=== PATIENT | female | born 1935 | race Caucasian/White ===

== ENCOUNTER 2018-11-13 14:46 | Inpatient (IN) | payer MEDICARE, SELFPAY | END 2018-11-17 14:00 | DRG 690 | PROVIDERS: Admitting Provider Internal Medicine; Emergency Provider Emergency Medicine; PCP Family Medicine; Visit Provider Internal Medicine | DX: N39.0 Urinary tract infection, site not specified (principal); N18.4 Chronic kidney disease, stage 4 (severe); E22.2 Syndrome of inappropriate secretion of antidiuretic hormone; W06.XXXA Fall from bed, initial encounter; M19.90 Unspecified osteoarthritis, unspecified site; F32.9 Major depressive disorder, single episode, unspecified; M81.0 Age-related osteoporosis without current pathological fracture; Z85.3 Personal history of malignant neoplasm of breast; F41.9 Anxiety disorder, unspecified; Z96.611 Presence of right artificial shoulder joint; Z98.1 Arthrodesis status; Z96.649 Presence of unspecified artificial hip joint; S42.032A Displaced fracture of lateral end of left clavicle, initial encounter for closed fracture; D63.1 Anemia in chronic kidney disease; K58.9 Irritable bowel syndrome, unspecified; B96.20 Unspecified Escherichia coli [E. coli] as the cause of diseases classified elsewhere; G30.9 Alzheimer's disease, unspecified; F02.80 Dementia in other diseases classified elsewhere, unspecified severity, without behavioral disturbance, psychotic disturbance, mood disturbance, and anxiety; T50.2X5A Adverse effect of carbonic-anhydrase inhibitors, benzothiadiazides and other diuretics, initial encounter | CPT/HCPCS: 36415; 51701; 70450; 71045; 72125; 72170; 73030; 73060; 73502; 80048; 80053; 80069; 81001; 81050; 82384; 82436; 82533; 82550; 83690; 83874; 83883; 83930; 83935; 84105; 84133; 84165; 84295; 84300; 84443; 85025; 85027; 85610; 87040; 87077; 87086; 87088; 87186; 93005; 96360; 96361; 96374; 97110; 97116; 97161; 97166; 97530; 97535; 99291; A4565; A9270; G0378; J0696; J2597; J7030; J7060 ==

== ENCOUNTER 2020-05-22 10:14 | Emergency (ER) | payer MEDICARE, SELFPAY ==
[2020-05-22] VITALS (9 sets, daily range): BP systolic 112–168; BP diastolic 59–78; PULSE 55–66; RESP 9–24; TEMP 36.3; O2SAT 95–98
--- NOTE | ~2020-05-22 | XR_ITS ---
EXAMINATION: XR chest 2V 05/22/2020 10:51 INDICATION: Weakness. Dyspnea. Syncope. PROCEDURE: AP and lateral views of the chest COMPARISON: There FINDINGS: The lungs are clear. The lungs are hyperinflated which is consistent with, but not diagnost ic of chronic obstructive pulmonary disease. The cardiomediastinal silhouette is within normal limits . There are no pleural effusions. There is no pneumothorax suspected. There is a right shoulder ar throplasty. IMPRESSION: 1: NO ACUTE CARDIOPULMONARY DISEASE. Reviewed, dictated and finalized at location B.
--- NOTE | ~2020-05-22 | CT_ITS ---
EXAMINATION: CT brain wo con DATE: 05/22/2020 11:14 INDICATION: Syncope TECHNIQUE: Computed tomography (CT) of the head was performed without intravenous contrast. The dose- length product was 605.33 mGy-cm. The mA was adjusted according to patient size. Iterative reconstruc tion technique was employed. COMPARISON: CT dated 11/13/2018 FINDINGS: There is generalized atrophy. There are scattered severe periventricular and subcortical wh ite matter changes, most likely related to small vessel ischemic disease (microangiopathy). There is intracranial atherosclerosis. No acute intracranial hemorrhage, infarction, mass or mass effect. No v entriculomegaly or midline shift. Paranasal sinuses and mastoids are pneumatized. No depressed skull fractures. IMPRESSION: 1. No acute intracranial abnormality. Reviewed, dictated and finalized at location B.
--- NOTE | 2020-05-22 10:19 | ECG_ITS ---
Measurements Intervals [place] Rate: 60 P: 63 NC: 146 QRS: -80 QRSD: 128 T: 53 QT: 442 QTc: 443 Interpretive Statements SINUS RHYTHM LEFT AXIS DEVIATION RSR' IN V1 OR V2, CONSIDER RIGHT VENTRICULAR HYPERTROPHY OR RIGHT VCD BASELINE ARTIFACT- V4, V6 BORDERLINE ECG Electronically Signed On 05-22-2020 11:15:27 CDT by Sascha Newman D.O.
[2020-05-22 10:39] LABS: Basophils Percent Auto 0.5 % (0.2-1.2); Eosinophils Absolute Auto 0.1 K/mm3 (0-0.3); Eosinophils Percent Auto 1.5 % (0-4.4); Hematocrit 33.3 % (37.0-47.0); Hemoglobin 10.6 g/dL (12.0-15.0); Immature Granulocyte Absolute 0.02 K/mm3 (0.00-0.031); Immature Granulocyte Percent A 0.3 % (0-0.5); Lymphocytes Absolute Auto 1.03 K/mm3 (0.9-3.2); Lymphocytes Percent Auto 16.9 % (18.3-44.2); Mean Corpuscular HGB Conc 31.8 g/dl (32-36); Mean Corpuscular Hemoglobin 30.7 pg (26-34); Mean Corpuscular Volume 96.5 fl (80-100); Mean Platelet Volume 10.1 fl (7.4-10.4); Monocytes Absolute Auto 0.6 K/mm3 (0.1-0.6); Monocytes Percent Auto 9.2 % (2.6-8.5); Neutrophils Absolute Auto 4.4 K/mm3 (1.3-6.7); Neutrophils Percent Auto 71.6 % (45.5-73.1); Platelet Count Result 192 k/mm3 (150-375); Red Blood Count 3.45 M/mm3 (4.2-5.4); White Blood Count 6.1 K/mm3 (4.5-10.0)
[2020-05-22 10:52] LABS: Alanine Aminotransferase 15 U/L (4-35); Albumin Level 3.8 g/dL (3.5-5.1); Alkaline Phosphatase 85 U/L (38-126); Anion Gap 10 mmol/L (8-16); Aspartate Amino Transferase 24 U/L (14-36); Bilirubin,Total 0.5 mg/dL (0.2-1.3); Blood Urea Nitrogen 31 mg/dL (7-17); Calcium 9.3 mg/dL (8.4-10.2); Carbon Dioxide 24 mmol/L (22-30); Chloride 103 mmol/L (98-107); Estimated CRCL calculation 22 ml/min; Estimated Glomerular Filt Rate 33; Glucose 122 mg/dL (65-105); Potassium 4.7 mmol/L (3.4-5.0); Sodium 137 mmol/L (137-145)
[2020-05-22 10:55] LABS: Add Urine Microscopic? YES; Appearance Urine Clear (Clear); Bilirubin Urine Negative (Negative); Blood Urine 1+ (Negative); Color Urine Yellow (Yellow); Glucose Urine UA Negative (Negative); Hyaline Casts Urine 15-19 /lpf; Ketones Urine Negative (Negative); Leukocyte Esterase Ur Negative LEU/UL (Negative); Mucus Urine Rare /lpf; Nitrate Urine Negative (Negative); Protein Urine Negative (Negative); RBC Urine 0-2 /hpf (0-2); Specific Grav Ur 1.013 (1.001-1.035); Squamous Epithelial Cell Urine Few /hpf (Few); Urobilinogen Urine Negative mg/dL (<2.0); WBC Urine 0-3 /hpf
[2020-05-22] MEDS: SODIUM CHLORIDE 0.9% IV 1,000 ML 999 ML IV CONT (11:24)
--- NOTE | 2020-05-22 13:27 | PC.NURSE ---
Pt ambulated without assistance
--- NOTE | 2020-05-22 13:55 | ED.GENADULT ---
HPI - General Adult General Chief complaint: Syncope Stated complaint: weakness, syncopal Time Seen by Provider: 05/22/20 10:22 History of Present Illness HPI narrative: Patient is an 85-year-old female who presents ER status post syncope. Patient was on the toilet trying to use bathroom when she lost consciousness. Patient reports this is not happened to her previously. Denies any recent nausea/vomiting. She has not had any decreased oral intake. Patient had soiled herself upon arrival here. Related Data Home Medications Medication Instructions Recorded Confirmed amlodipine 5 mg PO 05/22/20 05/22/20 labetalol 100 mg PO 05/22/20 Allergies Allergy/AdvReac Type Severity Reaction Status Date / Time codeine Allergy Unknown Unknown Verified 05/22/20 12:06 Review of Systems Review of Systems: All systems reviewed & are unremarkable except as noted in HPI and below Constitutional: Constitutional: Denies chills, Denies fever(s) and Denies weakness ENT: Denies nasal congestion and Denies sore throat Cardiovascular: Cardiovascular: Denies chest pain and Denies radiating jaw, neck or arm pain Gastrointestinal: Gastrointestinal: Denies abdominal pain, Reports diarrhea, Denies nausea and Denies vomiting Neurologic: Reports syncope, Denies headache(s), Denies focal weakness and Denies numbness PMFSH Past Medical History Medical History (Updated 05/22/20 @ 14:00 by Jake Monreal MD) Alzheimer's dementia Essential hypertension Fracture of left clavicle HX: breast cancer Hypertensive kidney disease, stage IV Secondary hyperparathyroidism (of renal origin) (05/03/19) Surgical History Surgical History (Updated 05/22/20 @ 13:58 by Jake Monreal MD) H/O bilateral mastectomy History of left hip replacement Family History Family History (Updated 11/24/18 @ 16:53 by DOCTOR UNKNOWN) Father Family history of suicide Family history of mental disorder Depression Mother Family history of malignant neoplasm of breast in first degree relative Sibling Family history of obesity Family history of mental disorder Depression Hypertension Family history of cardiovascular disease Family history of Alzheimer's disease Other Family history of malignant neoplasm Social History Social History Smoking status: Never smoker Alcohol intake: never Exam Narrative: Exam Narrative: GENERAL: Well-appearing, well-nourished, and in no acute distress. HEAD: Normocephalic, atraumatic. ENT: Mucous membranes moist. CHEST: Clear to auscultation. No respiratory distress. HEART: Regular rate and rhythm. Normal peripheral pulses. ABDOMEN: Soft, nontender, nondistended. EXTREMITIES: Normal range of motion. No edema. SKIN: Warm, dry, no rash. NEURO: Awake and alert, clear speech, neurologic baseline per family. Course Course Emergency Course: Patient was orthostatic which is resolved with IV fluid. Ambulatory without difficulty. Family feels comfortable with discharge. Vital Signs Vital signs: Vital Signs Temperature 97.3 F L 05/22/20 10:12 Pulse Rate 58 L 05/22/20 10:12 Respiratory Rate 13 05/22/20 10:12 Blood Pressure 150/69 H 05/22/20 10:12 Pulse Oximetry 98 05/22/20 10:12 Temperature 97.3 F L 05/22/20 10:12 Pulse Rate 66 05/22/20 13:16 Respiratory Rate 21 H 05/22/20 13:11 Blood Pressure 160/68 H 05/22/20 13:16 Pulse Oximetry 95 05/22/20 13:11 Medical Decision Making Vital Signs Vital Signs: Vital Signs Temperature 97.3 F L 05/22/20 10:12 Pulse Rate 58 L 05/22/20 10:12 Respiratory Rate 13 05/22/20 10:12 Blood Pressure 150/69 H 05/22/20 10:12 Pulse Oximetry 98 05/22/20 10:12 Temperature 97.3 F L 05/22/20 10:12 Pulse Rate 66 05/22/20 13:16 Respiratory Rate 21 H 05/22/20 13:11 Blood Pressure 160/68 H 05/22/20 13:16 Pulse Oximetry 95 05/22/20 13:11 Lab Data Result diagrams: 05/22/20 10:32 05/22/20 10:32
== END 2020-05-22 14:34 | disposition home or self-care (01) ==
PROVIDERS: Emergency Provider Emergency Medicine; PCP Family Medicine
DX: I95.1 Orthostatic hypotension (principal); G30.9 Alzheimer's disease, unspecified; F02.80 Dementia in other diseases classified elsewhere, unspecified severity, without behavioral disturbance, psychotic disturbance, mood disturbance, and anxiety; Z85.3 Personal history of malignant neoplasm of breast; I13.10 Hypertensive heart and chronic kidney disease without heart failure, with stage 1 through stage 4 chronic kidney disease, or unspecified chronic kidney disease; N18.4 Chronic kidney disease, stage 4 (severe); N25.81 Secondary hyperparathyroidism of renal origin; Z90.13 Acquired absence of bilateral breasts and nipples; Z96.642 Presence of left artificial hip joint
CPT/HCPCS: 36415; 70450; 71046; 80053; 81001; 85025; 93005; 96360; 99284; J7030

== ENCOUNTER 2020-07-02 14:38 | Inpatient (IN) | payer MEDICARE, SELFPAY ==
[2020-07-02] VITALS (24 sets, daily range): BP systolic 126–180; BP diastolic 60–94; PULSE 62–101; RESP 9–43; TEMP 36.1–36.4; O2SAT 77–100; BMI 23.0
--- NOTE | 2020-07-02 15:21 | ED.GENADULT ---
HPI - General Adult General Chief complaint: Recheck/Abnormal Lab/Rx Stated complaint: Dizzy, Blood Pressure Low Time Seen by Provider: 07/02/20 15:06 Source: RN notes reviewed History of Present Illness HPI narrative: Patient presents emergency department from Dr. Jimenez's office for orthostatic hypotension. Patient had gone to the office for routine follow-up today was found to be orthostatically hypotension. Blood pressures were noted to be dropping down to the 70s systolically when she stood up. Patient does states she has been having some mild intermittent dizziness she denies any current symptoms sent in bed she has any fevers or chills chest pain shortness of breath abdominal pain nausea vomiting or any other symptoms Related Data Allergies Allergy/AdvReac Type Severity Reaction Status Date / Time No Known Allergies Allergy Verified 07/02/20 15:06 Review of Systems Review of Systems: Narrative: Gen.: Denies fevers or chills Eyes: Denies eye pain or visual change ENT: Denies congestion Respiratory: Denies shortness of breath or cough CV: Denies chest pain or palpitations GI: Denies abdominal pain nausea, emesis or diarrhea denies burning, urgency, frequency or hematuria Musculoskeletal: Denies back pain or muscle pain Neuro: Denies numbness, tingling, weakness or focal weakness reports intermittent dizziness with standing Skin: Denies rash Except as documented, all other systems reviewed and negative FOR[facility]LY [facility] Past Medical History Medical History Essential hypertension Fracture of left clavicle HX: breast cancer Hypertensive kidney disease, stage IV Postmenopausal 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 (of renal origin) (05/03/19) Surgical History Surgical History H/O bilateral mastectomy History of left hip replacement Family History Family History Father Family history of suicide Family history of mental disorder Depression Mother Family history of malignant neoplasm of breast in first degree relative Sibling Family history of obesity Family history of mental disorder Depression Hypertension Family history of cardiovascular disease Family history of Alzheimer's disease Other Family history of malignant neoplasm Social History Social History Smoking status: Never smoker Alcohol intake: never Gender identity (if verbalized by the patient): Female Exam Narrative: Exam Narrative: APPEARANCE: No acute distress, nontoxic, resting in bed EYES: EOMI HEENT: Normocephalic, atraumatic, OMM RESPIRATORY: No respiratory distress Clear to auscultation bilaterally with no rhonchi wheezing or rales. CARDIOVASCULAR: Regular rate and rhythm without murmurs rubs or gallops. ABDOMINAL: Soft, nontender, nondistended, no rebound or guarding MUSCULOSKELETAl: Moves all extremities. No clubbing, cyanosis or edema. NEURO: Awake and alert. Following commands, speech normal, no focal deficits SKIN:: Warm, dry. No rashes lesions or abrasions PSYCHIATRIC: Normal affect/mood, Course Course Emergency Course: Discussed with Dr. Jimenez presentation work-up agrees with consult at this time peer request patient be started on 0.9 normal saline at 75 mL an hour with a repeat sodium drawn in 4 hours Discussed with BRITTNY Stephens for Dr Cox presentation work-up agrees with admission at this time Discussed with patient and family results of workup and diagnosis. Discussed need for admission. Patient and family understand and agree to current treatment plan Vital Signs Vital signs: Vital Signs Pulse Rate 66 07/02/20 14:58 Respiratory Rate 12 07/02/20 14:58 Blood Pressure 171/73 H 07/02/20 14:58 Pulse Oximetry 99 07/02/20 14:58 Pulse Rat
[2020-07-02 15:30] LABS: Basophils Percent Auto 0.3 % (0.2-1.2); Eosinophils Percent Auto 0.4 % (0-4.4); Hematocrit 32.2 % (37.0-47.0); Immature Granulocyte Absolute 0.03 K/mm3 (0.00-0.031); Immature Granulocyte Percent A 0.3 % (0-0.5); Lymphocytes Absolute Auto 1.06 K/mm3 (0.9-3.2); Lymphocytes Percent Auto 10.4 % (18.3-44.2); Mean Corpuscular HGB Conc 34.2 g/dl (32-36); Mean Corpuscular Hemoglobin 30.7 pg (26-34); Mean Corpuscular Volume 89.9 fl (80-100); Mean Platelet Volume 9.9 fl (7.4-10.4); Monocytes Absolute Auto 0.7 K/mm3 (0.1-0.6); Monocytes Percent Auto 6.5 % (2.6-8.5); Neutrophils Absolute Auto 8.3 K/mm3 (1.3-6.7); Neutrophils Percent Auto 82.1 % (45.5-73.1); Platelet Count Result 203 k/mm3 (150-375); Red Blood Count 3.58 M/mm3 (4.2-5.4); Red Cell Distribution Width 11.9 % (11.5-14.5); White Blood Count 10.2 K/mm3 (4.5-10.0)
[2020-07-02] MEDS: SODIUM CHLORIDE 0.9% IV 1,000 ML 999 ML IV CONT (15:36)
[2020-07-02 15:41] LABS: Potassium 4.6 mmol/L (3.4-5.0)
[2020-07-02 15:49] LABS: Alanine Aminotransferase 16 U/L (4-35); Albumin Level 4.1 g/dL (3.5-5.1); Alkaline Phosphatase 99 U/L (38-126); Anion Gap 12 mmol/L (8-16); Aspartate Amino Transferase 29 U/L (14-36); Bilirubin,Total 0.4 mg/dL (0.2-1.3); Blood Urea Nitrogen 30 mg/dL (7-17); Carbon Dioxide 22 mmol/L (22-30); Chloride 86 mmol/L (98-107); Estimated CRCL calculation 23 ml/min; Estimated Glomerular Filt Rate 36; Glucose 130 mg/dL (65-105); Sodium 120 mmol/L (137-145)
[2020-07-02 15:53] LABS: Add Urine Microscopic? YES; Appearance Urine Clear (Clear); Bilirubin Urine Negative (Negative); Blood Urine 2+ (Negative); Color Urine Straw (Yellow); Glucose Urine UA Negative (Negative); Ketones Urine Negative (Negative); Leukocyte Esterase Ur Negative LEU/UL (Negative); Nitrate Urine Negative (Negative); Protein Urine Negative (Negative); RBC Urine 0-2 /hpf (0-2); Specific Grav Ur 1.009 (1.001-1.035); Squamous Epithelial Cell Urine Occasional /hpf (Few); Urobilinogen Urine Negative mg/dL (<2.0); WBC Urine 0-3 /hpf
--- NOTE | 2020-07-02 16:23 | ECG_ITS ---
Measurements Intervals [place] Rate: 64 P: 66 [place]: 156 QRS: 72 QRSD: 132 T: 42 QT: 423 QTc: 439 Interpretive Statements SINUS RHYTHM RIGHT BUNDLE BRANCH BLOCK BASELINE ARTIFACT- V3-V4 ABNORMAL ECG Electronically Signed On 07-02-2020 19:47:44 [employer]IST by Sascha Newman D.O.
[2020-07-02] MEDS: SODIUM CHLORIDE 0.9% IV 1,000 ML 75 ML IV CONT (17:49)
--- NOTE | 2020-07-02 18:05 | ADMGEN ---
This patient, Jennifer Negrete, was admitted to Medical Room 349-01. Patient/family oriented to hospital policies and general routines including ID bracelet, bed and alarms, visiting hours, pain management, procedures, bathroom and other care routines, personal items, smoking policy, room service/diet, and visiting hours. Information on how to activate the Rapid Response Team has been discussed. Patient/Family are encouraged to report perceived risks to care and to ask questions if they do not understand what they are told or what they should do.
[2020-07-02 20:39] LABS: Anion Gap 7 mmol/L (8-16); Blood Urea Nitrogen 25 mg/dL (7-17); Calcium 8.8 mg/dL (8.4-10.2); Carbon Dioxide 23 mmol/L (22-30); Chloride 95 mmol/L (98-107); Estimated CRCL calculation 24 ml/min; Estimated Glomerular Filt Rate 39; Glucose 139 mg/dL (65-105); Potassium 4.2 mmol/L (3.4-5.0); Sodium 125 mmol/L (137-145)
--- NOTE | 2020-07-02 23:17 | PM.IMHP ---
H&P: HPI History of Present Illness Date/Time: 07/02/20 23:17 Chief complaint: Hypotension at [facility] office Narrative: Source of information: ER records and past medical records. The patient is a poor historian due to her dementia. Patient cannot recall why she was brought to the hospital. She thought that she may have been brought to the hospital because she may have COVID which was not the case. Jennifer Negrete is a 85 year old female with a past medical history of depression, anxiety, dementia, hypertension and kidney disease stage 4 who presented to the ER from Dr. Jimenez's office to orthostatic hypotension. The patient and went to the office for routine follow-up and was found have her blood pressures dropped as low as the 70s when she stood up. The patient has been having some intermittent dizziness. She denies any headaches or visual changes. She actually could not recall why she had come to the ER and thought that she may be in the hospital to see if she had COVID. She denies any shortness of breath or chest pain. She reports that she has been eating adequately. She denies any nausea or vomiting. She does think she is more confused than usual. She denies any cough, congestion, fevers or recent ill contacts. She has only a oriented to person and date of . She knows that she is in the hospital but does not known the name of the hospital. She does not know the month or year. Review of Systems Review of Systems: Narrative: 12 systems were reviewed with pertinent positives and negatives per HPI. Except as documented in the HPI, all other systems were reviewed and are negative but limited due to the patient's dementia. [facility] Past Medical History Medical History Essential hypertension Fracture of left clavicle HX: breast cancer Hypertensive kidney disease, stage IV Postmenopausal 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 (of renal origin) (05/03/19) Surgical History Surgical History H/O bilateral mastectomy History of left hip replacement Family History Family History Father Family history of suicide Family history of mental disorder Depression Mother Family history of malignant neoplasm of breast in first degree relative Sibling Family history of obesity Family history of mental disorder Depression Hypertension Family history of cardiovascular disease Family history of Alzheimer's disease Other Family history of malignant neoplasm Social History Social History Smoking status: Never smoker Alcohol intake: never Substance use: never Substance use type: does not use Gender identity (if verbalized by the patient): Female Spiritual care concerns: No Meds Home Medications and Allergies Home Medications Medication Instructions Recorded Confirmed Type citalopram 20 mg tablet 20 mg PO DAILY #90 tablet 01/29/20 07/02/20 Rx lisinopril 10 mg tablet 10 mg PO DAILY #90 tablet 01/29/20 07/02/20 Rx mecobalamin (vitamin B12) 1,000 1,000 mcg PO DAILY #90 tablet 06/06/20 07/02/20 Rx mcg chewable tablet lorazepam 0.5 mg tablet 0.5 mg PO DAILY PRN #90 tablet 06/12/20 07/02/20 Rx buspirone 5 mg DAILY 07/02/20 07/02/20 History memantine 7 mg DAILY 07/02/20 07/02/20 History Allergies Allergy/AdvReac Type Severity Reaction Status Date / Time No Known Allergies Allergy Verified 07/02/20 18:52 Vital Signs Vital Signs - 24 hr 07/02/20 14:53 07/02/20 14:54 07/02/20 14:58 Temperature Pulse Rate 69 66 Respiratory Rate 15 12 Blood Pressure 171/73 H 171/73 H Pulse Oximetry 98 100 99 07/02/20 15:00 07/02/20 15:01 07/02/20 15:11 Temperature Pulse Rate 64 65 67 Respiratory Rate 14 12 Blood Pressure 1
[2020-07-03 04:22] VITALS: BP 152/64; PULSE 76; RESP 16; TEMP 36.4; O2SAT 97
[2020-07-03 05:54] LABS: Basophils Percent Auto 0.4 % (0.2-1.2); Eosinophils Percent Auto 0.6 % (0-4.4); Hematocrit 30.9 % (37.0-47.0); Hemoglobin 10.5 g/dL (12.0-15.0); Immature Granulocyte Absolute 0.03 K/mm3 (0.00-0.031); Immature Granulocyte Percent A 0.4 % (0-0.5); Lymphocytes Absolute Auto 1.18 K/mm3 (0.9-3.2); Lymphocytes Percent Auto 17.6 % (18.3-44.2); Mean Corpuscular Hemoglobin 30.3 pg (26-34); Mean Platelet Volume 9.6 fl (7.4-10.4); Monocytes Absolute Auto 0.6 K/mm3 (0.1-0.6); Monocytes Percent Auto 9.6 % (2.6-8.5); Neutrophils Absolute Auto 4.8 K/mm3 (1.3-6.7); Neutrophils Percent Auto 71.4 % (45.5-73.1); Platelet Count Result 201 k/mm3 (150-375); Red Blood Count 3.47 M/mm3 (4.2-5.4); Red Cell Distribution Width 11.9 % (11.5-14.5); White Blood Count 6.7 K/mm3 (4.5-10.0)
[2020-07-03 06:20] LABS: Anion Gap 8 mmol/L (8-16); Blood Urea Nitrogen 25 mg/dL (7-17); Calcium 9.1 mg/dL (8.4-10.2); Carbon Dioxide 23 mmol/L (22-30); Chloride 100 mmol/L (98-107); Estimated CRCL calculation 26 ml/min; Estimated Glomerular Filt Rate 43; Glucose 102 mg/dL (65-105); Potassium 4.6 mmol/L (3.4-5.0); Sodium 131 mmol/L (137-145)
--- NOTE | 2020-07-03 08:40 | PM.IMPN ---
Progress Note: A&P Assessment and Plan (1) Acute hyponatremia: Code(s): E87.1 - Hypo-osmolality and hyponatremia Status: Acute Assessment and Plan: Serum Na corrected to 131 overnight, however appears to have corrected too fast compared to labs drawn yesterday afternoon. Discussed case with Dr. Jimenez who is following and plans to keep patient overnight to monitor sodium levels. Appreciate recommendations D5W fluids per Dr. Jimenez rec Monitor serum Na Await further rec from Dr. Jimenez (2) Orthostatic hypotension: Code(s): I95.1 - Orthostatic hypotension Status: Acute Assessment and Plan: Appears to have a bit elevated BP this morning. Amlodipine and BB stopped per Dr. Jimenez given low BP prior to arrival. monitor BP overnight Home Lisinopril continues Will consider restarting amlodipine if continued elevated BP (3) CKD (chronic kidney disease) stage 4, GFR 15-29 ml/min: Code(s): N18.4 - Chronic kidney disease, stage 4 (severe) Status: Acute Assessment and Plan: Cr 1.20 this morning. Appears to be at baseline. Dr. Jimenez following Monitor BMP (4) Alzheimer's dementia with behavioral disturbance: Qualifiers: Alzheimer's disease onset: late-onset Qualified Code(s): G30.1 - Alzheimer's disease with late onset; F02.81 - Dementia in other diseases classified elsewhere with behavioral disturbance Code(s): G30.9 - Alzheimer's disease, unspecified; F02.81 - Dementia in other diseases classified elsewhere with behavioral disturbance Status: Acute Assessment and Plan: Appears to be at baseline. Pleasantly confused for me this morning Continue home medications fall precautions Subjective Date/time seen: 12/03/20 08:40 Interval history: Patient is a 85 yo F with history of depression, anxiety, dementia, hypertension and kidney disease stage 4 who is seen in follow up for hyponatremia and orthostatic hypotension. Patient states she feels pretty good today. No complaints. She does have baseline dementia and is A&O to self, month/day of , and that she is in the hospital and answers questions appropriately for the most part, but is occasionally pleasantly confused. She states she thinks she blacked out yesterday. Currently she denies f/c/s, headaches, dizziness, lightheadedness, cp/palpitations, sob/cough, n/v/d/c, abd pain, changes in BMs, dysuria, hematuria, cloudy urine, calf pain/swelling. Review of Systems Review of Systems: All systems reviewed & are unremarkable except as noted in HPI and below (limited due to baseline dementia) Exam Narrative: Exam Narrative: General: Patient resting supine in bed in no acute distress. A&O to self, day/month of , and that she is in the hospital. Pleasantly confused HEENT: Normocephalic, EOMI, oral mucosa moist. Cardiovascular: Rate and rhythm are regular. No notable murmur, rub, or gallop. Respiratory: Lungs clear to auscultation all subramanian. Non-labored breathing. Abdomen: Soft, non-tender, non-distended, bowel sounds present. Extremities: Peripheral pulses intact. No edema. NTTP b/l calves Neuro: No focal neurological deficits. Speech is clear. Objective Data Vital Signs Vital Signs: Last Vital Signs Temp 97.5 F L 07/03/20 04:22 Pulse 76 07/03/20 04:22 Resp 16 07/03/20 04:22 BP 152/64 H 07/03/20 04:22 Pulse Ox 97 07/03/20 04:22 Intake/Output Intake/Output: Intake & Output 06/30/20 07/01/20 07/02/20 07/03/20 23:59 23:59 23:59 23:59 Intake Total 1229 50 Output Total 700 300 Balance 529 -250 Meds/Results Medications: Active Medications Generic Name Dose Route Start Last Admin Trade Name Freq PRN Reason Stop Dose Admin Buspirone HCl 5 mg 07/03/20 09:00 Buspirone Hcl 5 Mg Tablet BY MOUTH
[2020-07-03] MEDS: DEXTROSE 5% 1,000 ML 1,000 ML 180 ML IV CONT (08:41)
--- NOTE | 2020-07-03 08:52 | PM.CNNEP ---
Assessment and Plan Assessment and plan (1) Acute hyponatremia: Code(s): E87.1 - Hypo-osmolality and hyponatremia Status: Acute Assessment and Plan: The patient has low sodium. Most likely etiology is her copious water drinking plus being on citalopram. She has been on the latter medication for years and her sodium has always been okay, but as her daughter and she agree, she does not drink very much water at home. Probably she was essentially fluid restricting herself and so her sodium did not drop because of the Citalopram before. There are other causes of hyponatremia also. Will check a TSH and a cortisol level. She is not on any of the other main medications that do this. Cancer can do this. I encouraged her to keep up-to-date with her cancer screening as indicated by her age. Brain issues can do this. A CT of the brain yesterday and this was okay. Lung issues can do this but a chest x-ray was negative as well. Her sodium corrected too quickly. I have written for some D5W and DDAVP to bring his sodium back down to about 126-128. A repeat sodium will be checked at noon and they will call me the results. (2) Orthostatic hypotension: Code(s): I95.1 - Orthostatic hypotension Status: Acute Assessment and Plan: Was on 3 different antihypertensives before. One of them was labetalol. This can cause orthostasis. Hypo adrenalism can do this as well. Dehydration can do this. She got some fluid last night. Is off the labetalol. We will see with the cortisol shows. We can check SPEP, B12, folate to rule out autonomic insufficiency as well. (3) Chronic renal insufficiency: Code(s): N18.9 - Chronic kidney disease, unspecified Status: Acute Assessment and Plan: She has chronic kidney disease. This has been stable. (4) Essential hypertension: Code(s): I10 - Essential (primary) hypertension Status: Acute Assessment and Plan: She has hypertension. Blood pressure is a little higher. Discussed with BRITTNY Zuniga. Will restart amlodipine. (5) Anemia in chronic kidney disease: Qualifiers: Chronic kidney disease stage: stage 4 (severe) Qualified Code(s): N18.4 - Chronic kidney disease, stage 4 (severe); D63.1 - Anemia in chronic kidney disease Code(s): N18.9 - Chronic kidney disease, unspecified; D63.1 - Anemia in chronic kidney disease Status: Acute Assessment and Plan: Hemoglobin is a bit low. She does not knee EPO. (6) Alzheimer's dementia with behavioral disturbance: Qualifiers: Alzheimer's disease onset: late-onset Qualified Code(s): G30.1 - Alzheimer's disease with late onset; F02.81 - Dementia in other diseases classified elsewhere with behavioral disturbance Code(s): G30.9 - Alzheimer's disease, unspecified; F02.81 - Dementia in other diseases classified elsewhere with behavioral disturbance Status: Acute Assessment and Plan: She is on memantine for this. (7) Secondary hyperparathyroidism (of renal origin): Onset Date: 05/03/19 Code(s): N25.81 - Secondary hyperparathyroidism of renal origin Status: Acute Assessment and Plan: Patient has an elevated PTH due to the renal insufficiency. (8) Vitamin D deficiency, unspecified: Code(s): E55.9 - Vitamin D deficiency, unspecified Status: Acute Assessment and Plan: Will check a level. History of Present Illness Reason for Consult Consult date: 07/03/20 Chief Complaint Chief complaint: Hypotension at [employer] [facility] office History of Present Illness Narrative: Jennifer is a very pleasant 85-year-old lady who has chronic kidney disease, hypertension, depression, anxiety, dementia. The patient came to my office yesterday for a routine visit. She felt dizzy and did not feel well. Her blood pressure was 102 but standing a was down to 70. Dr. Montesinos had gotten some blood work done the day before and this showed a
[2020-07-03] MEDS: DESMOPRESSIN ACETATE 4 MCG/ML AMP 2 MCG IV PUSH (09:49)
[2020-07-03 09:52] VITALS: O2SAT 98
[2020-07-03] MEDS: busPIRone HCL 5 MG TABLET BY MOUTH (09:52)
[2020-07-03] MEDS: lisinopriL 10 MG TABLET PO (09:52)
[2020-07-03] MEDS: CITALOPRAM HYDROBROMIDE 20 MG TABLET PO (09:52)
[2020-07-03] MEDS: CYANOCOBALAMIN 1,000 MCG TABLET 1000 MCG PO (09:52)
[2020-07-03] MEDS: MEMANTINE HCL XR 7 MG CAP BY MOUTH (11:13)
[2020-07-03 11:40] LABS: Vitamin D 25 Hydroxy 44.7 ng/mL
[2020-07-03 11:52] LABS: Thyroid Stimulating Hormone Reflex 0.802 uIU/mL (0.465-4.68)
[2020-07-03 11:59] LABS: Folic Acid 6.2 ng/mL (2.76->20)
[2020-07-03 13:32] LABS: Sodium 128 mmol/L (137-145)
[2020-07-03 15:19] VITALS: BP 153/84; PULSE 95; RESP 16; TEMP 36.7; O2SAT 100
[2020-07-03 22:00] VITALS: BP 210/96; PULSE 103; RESP 16; TEMP 36.7; O2SAT 96
[2020-07-03 22:30] VITALS: BP 185/86
[2020-07-03] MEDS: hydrALAZINE HCL 20 MG/ML VIAL 5 MG IV PUSH (23:55)
[2020-07-04] VITALS (7 sets, daily range): BP systolic 136–162; BP diastolic 70–90; PULSE 91–105; RESP 16–18; TEMP 36.3–36.8; O2SAT 97–98
[2020-07-04 06:11] LABS: Hematocrit 34.4 % (37.0-47.0); Hemoglobin 11.7 g/dL (12.0-15.0); Mean Corpuscular Hemoglobin 30.4 pg (26-34); Mean Corpuscular Volume 89.4 fl (80-100); Platelet Count Result 242 k/mm3 (150-375); Red Blood Count 3.85 M/mm3 (4.2-5.4); Red Cell Distribution Width 12.1 % (11.5-14.5)
[2020-07-04 06:25] LABS: Albumin Level 3.9 g/dL (3.5-5.1); Anion Gap 7 mmol/L (8-16); Blood Urea Nitrogen 19 mg/dL (7-17); Calcium 9.7 mg/dL (8.4-10.2); Carbon Dioxide 23 mmol/L (22-30); Chloride 95 mmol/L (98-107); Estimated CRCL calculation 28 ml/min; Estimated Glomerular Filt Rate 47; Glucose 108 mg/dL (65-105); Magnesium 1.5 mg/dL (1.6-2.3); Phosphorus 3.4 mg/dL (2.5-4.5); Potassium 4.3 mmol/L (3.4-5.0); Sodium 125 mmol/L (137-145)
[2020-07-04] MEDS: busPIRone HCL 5 MG TABLET BY MOUTH (08:46)
[2020-07-04] MEDS: lisinopriL 10 MG TABLET PO (08:46)
[2020-07-04] MEDS: CITALOPRAM HYDROBROMIDE 20 MG TABLET PO (08:47)
[2020-07-04] MEDS: CYANOCOBALAMIN 1,000 MCG TABLET 1000 MCG PO (08:47)
[2020-07-04] MEDS: MEMANTINE HCL XR 7 MG CAP BY MOUTH (08:48)
[2020-07-04] MEDS: MAGNESIUM SULF 1 GM/D5W 100 ML 1 GM/100 ML BAG IVPB (09:00)
--- NOTE | 2020-07-04 10:45 | PM.IMPN ---
Progress Note: A&P Assessment and Plan (1) Acute hyponatremia: Code(s): E87.1 - Hypo-osmolality and hyponatremia Status: Acute Assessment and Plan: Serum Na down to 125 overnight. Discussed case with Dr. Jimenez who is following and plans to place patient on fluid restricted diet of 800 mL/day. Appreciate recommendations 800 mL/day fluid restriction per Dr. Jimenez rec Monitor serum Na Await further rec from Dr. Jimenez (2) Orthostatic hypotension: Code(s): I95.1 - Orthostatic hypotension Status: Acute Assessment and Plan: Appears to have elevated to over 200s/90s overnight and was given hydralazine. Now 150s sys most recently. Amlodipine and BB were stopped per Dr. Jimenez given low BP/orthostatic BP prior to arrival. Will restart home amlodipine and restart labetalol at lower dose of 50 mg Q12 today. Monitor BP overnight Home Lisinopril continues Will consider increaseing labetolol if continued elevated BP (3) CKD (chronic kidney disease) stage 4, GFR 15-29 ml/min: Code(s): N18.4 - Chronic kidney disease, stage 4 (severe) Status: Acute Assessment and Plan: Cr 1.10 this morning. Appears to be at baseline. Dr. Jimenez following Monitor BMP (4) Alzheimer's dementia with behavioral disturbance: Qualifiers: Alzheimer's disease onset: late-onset Qualified Code(s): G30.1 - Alzheimer's disease with late onset; F02.81 - Dementia in other diseases classified elsewhere with behavioral disturbance Code(s): G30.9 - Alzheimer's disease, unspecified; F02.81 - Dementia in other diseases classified elsewhere with behavioral disturbance Status: Acute Assessment and Plan: Appears to be at baseline. Pleasantly confused for me this morning Continue home medications fall precautions Subjective Date/time seen: 07/04/20 10:45 Interval history: Patient is a 85 yo F with history of depression, anxiety, dementia, hypertension and kidney disease stage 4 who is seen in follow up for hyponatremia and orthostatic hypotension. Patient states she feels pretty good today. No complaints. She does have baseline dementia and is A&O to self, , and that she is in a medical building and answers questions appropriately for the most part, but is occasionally pleasantly confused again today. Currently she denies f/c/s, dizziness, lightheadedness, cp/palpitations, sob/cough, n/v, abd pain, dysuria, hematuria, cloudy urine, calf pain/swelling. Review of Systems Review of Systems: All systems reviewed & are unremarkable except as noted in HPI and below (limited due to baseline dementia) Exam Narrative: Exam Narrative: General: Patient resting supine in bed in no acute distress. A&O to self, , and that she is in a medical building . Pleasantly confused HEENT: Normocephalic, EOMI, oral mucosa moist. Cardiovascular: A bit tachycardic and regular rhythm. No notable murmur, rub, or gallop. Respiratory: Lungs clear to auscultation all subramanian. Non-labored breathing. Abdomen: Soft, non-tender, non-distended, bowel sounds present. Extremities: Peripheral pulses intact. No edema. NTTP b/l calves Neuro: No focal neurological deficits. Speech is clear. Objective Data Vital Signs Vital Signs: Last Vital Signs Temp 97.7 F 07/04/20 04:09 Pulse 99 07/04/20 04:09 Resp 16 07/04/20 04:09 BP 150/72 H 07/04/20 04:09 Pulse Ox 97 07/04/20 04:09 Intake/Output Intake/Output: Intake & Output 07/01/20 07/02/20 07/03/20 07/04/20 23:59 23:59 23:59 23:59 Intake Total 1229 1130 860 Output Total 700 500 Balance 529 791 860 Meds/Results Medications: Active Medications Generic Name Dose Route Start Last Admin Trade Name Freq PRN Reason Stop Dose Admin Amlodipine Besylate 5 mg 07/04/20 10:30 Amlo
[2020-07-04] MEDS: amLODIPine BESYLATE 5 MG TABLET PO (11:20)
[2020-07-04] MEDS: LABETALOL HCL 50 MG TABLET PO ×2 (11:20→20:39)
--- NOTE | 2020-07-04 12:57 | PM.PNNEP ---
Progress Note: A&P Assessment and Plan (1) Acute hyponatremia: Code(s): E87.1 - Hypo-osmolality and hyponatremia Status: Acute Assessment and Plan: The patient has low sodium. TSH okay. Cortisol borderline low. Will check Cortrosyn stim test. Most likely etiology is her copious water drinking plus being on citalopram. She needs this medication for her well-being. Will continue it and work around it. She is on fluid restriction now at 800cc per day. Will repeat a sodium level this afternoon (2) Orthostatic hypotension: Code(s): I95.1 - Orthostatic hypotension Status: Acute Assessment and Plan: blood pressure is high. She is on lisinopril and is back on her amlodipine. I agree with low-dose labetalol. (3) Chronic renal insufficiency: Code(s): N18.9 - Chronic kidney disease, unspecified Status: Acute Assessment and Plan: She has chronic kidney disease. This has been stable. (4) Essential hypertension: Code(s): I10 - Essential (primary) hypertension Status: Acute Assessment and Plan: See above (5) Anemia in chronic kidney disease: Qualifiers: Chronic kidney disease stage: stage 4 (severe) Qualified Code(s): N18.4 - Chronic kidney disease, stage 4 (severe); D63.1 - Anemia in chronic kidney disease Code(s): N18.9 - Chronic kidney disease, unspecified; D63.1 - Anemia in chronic kidney disease Status: Acute Assessment and Plan: Hemoglobin is a bit low. She does not need EPO. (6) Alzheimer's dementia with behavioral disturbance: Qualifiers: Alzheimer's disease onset: late-onset Qualified Code(s): G30.1 - Alzheimer's disease with late onset; F02.81 - Dementia in other diseases classified elsewhere with behavioral disturbance Code(s): G30.9 - Alzheimer's disease, unspecified; F02.81 - Dementia in other diseases classified elsewhere with behavioral disturbance Status: Acute Assessment and Plan: She is on memantine for this. (7) Secondary hyperparathyroidism (of renal origin): Onset Date: 05/03/19 Code(s): N25.81 - Secondary hyperparathyroidism of renal origin Status: Acute Assessment and Plan: Patient has an elevated PTH due to the renal insufficiency. (8) Vitamin D deficiency, unspecified: Code(s): E55.9 - Vitamin D deficiency, unspecified Status: Acute Assessment and Plan: this level is okay. Subjective Date/time seen: 07/04/20 12:57 Interval history: Patient is alert. No chest pain or shortness of breath. Review of Systems Cardiovascular: Cardiovascular: Reports no additional cardiovascular complaints Respiratory: Respiratory: Reports no additional respiratory complaints Gastrointestinal: Gastrointestinal: Reports no additional gastrointestinal complaints Genitourinary: Genitourinary: Reports no additional female genitourinary complaints Exam Narrative: Exam Narrative: WDWN in NAD skin no rash head ncat lungs clear cor reg no rub abd BS+ nontender and soft ext no edema. Objective Data Vital Signs Vital Signs: Vital Signs - 24 hr 07/03/20 15:19 07/03/20 22:00 07/03/20 22:30 Temperature 36.7 C 36.7 C Pulse Rate 95 103 H Respiratory Rate 16 16 Blood Pressure 153/84 H 210/96 H 185/86 H Pulse Oximetry 100 96 07/04/20 00:00 07/04/20 04:09 07/04/20 11:20 Temperature 36.5 C Pulse Rate 99 91 Respiratory Rate 16 Blood Pressure 159/84 H 150/72 H Pulse Oximetry 97 07/04/20 12:44 Temperature Pulse Rate Respiratory Rate Blood Pressure 136/70 Pulse Oximetry Intake/Output Intake/Output: Intake & Output 07/01/20 07/02/20 07/03/20 07/04/20 23:59 23:59 23:59 23:59 Intake Total 1229 1130 860 Output Total 700 500 Balance 529 015 860 Meds/Results Medications: Active Medications Generic Name Dose Route Start Last Admin Trade Name Freq PRN Reason S
[2020-07-04 13:24] LABS: Sodium 122 mmol/L (137-145)
[2020-07-04] MEDS: COSYNTROPIN 0.25 MG/ML VIAL IV PUSH (13:36)
[2020-07-05 05:38] LABS: Hematocrit 28.2 % (37.0-47.0); Hemoglobin 9.9 g/dL (12.0-15.0); Mean Corpuscular HGB Conc 35.1 g/dl (32-36); Mean Corpuscular Hemoglobin 30.1 pg (26-34); Mean Corpuscular Volume 85.7 fl (80-100); Mean Platelet Volume 9.9 fl (7.4-10.4); Platelet Count Result 199 k/mm3 (150-375); Red Blood Count 3.29 M/mm3 (4.2-5.4); Red Cell Distribution Width 11.6 % (11.5-14.5)
[2020-07-05 05:55] VITALS: BP 164/68; PULSE 82; RESP 14; TEMP 36.8; O2SAT 96
[2020-07-05 06:07] LABS: Albumin Level 3.4 g/dL (3.5-5.1); Anion Gap 7 mmol/L (8-16); Blood Urea Nitrogen 26 mg/dL (7-17); Calcium 9.3 mg/dL (8.4-10.2); Carbon Dioxide 24 mmol/L (22-30); Chloride 91 mmol/L (98-107); Estimated CRCL calculation 28 ml/min; Estimated Glomerular Filt Rate 47; Glucose 98 mg/dL (65-105); Magnesium 1.7 mg/dL (1.6-2.3); Phosphorus 3.3 mg/dL (2.5-4.5); Potassium 4.2 mmol/L (3.4-5.0); Sodium 122 mmol/L (137-145)
[2020-07-05 08:00] VITALS: PULSE 90; RESP 14; O2SAT 96
[2020-07-05 10:21] VITALS: PULSE 90
[2020-07-05] MEDS: CITALOPRAM HYDROBROMIDE 20 MG TABLET PO (10:21)
[2020-07-05] MEDS: CYANOCOBALAMIN 1,000 MCG TABLET 1000 MCG PO (10:21)
[2020-07-05] MEDS: lisinopriL 10 MG TABLET PO (10:21)
[2020-07-05] MEDS: LABETALOL HCL 50 MG TABLET PO ×2 (10:21→20:48)
[2020-07-05] MEDS: busPIRone HCL 5 MG TABLET BY MOUTH (10:21)
[2020-07-05] MEDS: amLODIPine BESYLATE 5 MG TABLET PO (10:22)
[2020-07-05] MEDS: MEMANTINE HCL XR 7 MG CAP BY MOUTH (10:26)
--- NOTE | 2020-07-05 12:24 | PM.IMPN ---
Progress Note: A&P Assessment and Plan (1) Acute hyponatremia: Code(s): E87.1 - Hypo-osmolality and hyponatremia Status: Acute Assessment and Plan: Serum Na down to 122 today. Discussed case with Dr. Whitney who is following and awaiting sodium level this afternoon. 800 mL/day fluid restriction currently. Appreciate recommendations. 800 mL/day fluid restriction per Nephrology rec Monitor serum Na Await further rec from Dr. Whitney (2) Orthostatic hypotension: Code(s): I95.1 - Orthostatic hypotension Status: Acute Assessment and Plan: BP 160s sys this morning. Prior to arrival, her home Amlodipine and BB were stopped per Dr. Jimenez given low BP/orthostatic BP in his office Will continue home amlodipine and labetalol at lower dose of 50 mg Q12h Monitor BP overnight Home Lisinopril continues Will consider increasing labetolol if continued elevated BP (3) CKD (chronic kidney disease) stage 4, GFR 15-29 ml/min: Code(s): N18.4 - Chronic kidney disease, stage 4 (severe) Status: Acute Assessment and Plan: Cr 1.10 this morning. Appears to be at baseline. Dr. Jimenez following Monitor BMP (4) Alzheimer's dementia with behavioral disturbance: Qualifiers: Alzheimer's disease onset: late-onset Qualified Code(s): G30.1 - Alzheimer's disease with late onset; F02.81 - Dementia in other diseases classified elsewhere with behavioral disturbance Code(s): G30.9 - Alzheimer's disease, unspecified; F02.81 - Dementia in other diseases classified elsewhere with behavioral disturbance Status: Acute Assessment and Plan: Appears to be at baseline. Pleasantly confused for me this morning. No change in her mental status Continue home medications fall precautions Subjective Date/time seen: 07/05/20 12:24 Interval history: Patient is a 85 yo F with history of depression, anxiety, dementia, hypertension and kidney disease stage 4 who is seen in follow up for hyponatremia and orthostatic hypotension. Patient states she feels well again today. No complaints. She does have baseline dementia and is A&O to self, , and that she is in a hospital; answers questions appropriately for the most part, but is occasionally pleasantly confused again today. Currently she denies f/c/s, dizziness, lightheadedness, cp/palpitations, sob/cough, n/v, abd pain, dysuria, hematuria, cloudy urine, calf pain/swelling. Review of Systems Review of Systems: All systems reviewed & are unremarkable except as noted in HPI and below (limited due to baseline dementia) Exam Narrative: Exam Narrative: General: Patient resting supine in bed in no acute distress. A&O to self, , and hospital. Pleasantly confused HEENT: Normocephalic, EOMI, oral mucosa moist. Cardiovascular: Normal rate and regular rhythm. No notable murmur, rub, or gallop. Respiratory: Lungs clear to auscultation all subramanian. Non-labored breathing. Abdomen: Soft, non-tender, non-distended, bowel sounds present. Extremities: Peripheral pulses intact. No edema. NTTP b/l calves Neuro: No focal neurological deficits. Speech is clear. Objective Data Vital Signs Vital Signs: Last Vital Signs Temp 98.2 F 07/05/20 05:55 Pulse 90 07/05/20 10:21 Resp 14 07/05/20 08:00 BP 164/68 H 07/05/20 05:55 Pulse Ox 96 07/05/20 08:00 Intake/Output Intake/Output: Intake & Output 07/02/20 07/03/20 07/04/20 07/05/20 23:59 23:59 23:59 23:59 Intake Total 1229 1130 1340 280 Output Total 700 500 500 300 Balance 529 630 840 -20 Meds/Results Medications: Active Medications Generic Name Dose Route Start Last Admin Trade Name Freq PRN Reason Stop Dose Admin Amlodipine Besylate 5 mg 07/04/20 10:30 07/05/20 10:22 Amlodipine Besylate 5 Mg Tablet PO 5 mg QAM SC
[2020-07-05 12:33] LABS: Sodium 123 mmol/L (137-145)
[2020-07-05 14:00] VITALS: BP 138/64; PULSE 80; RESP 14; TEMP 36.5; O2SAT 99
--- NOTE | 2020-07-05 14:24 | PM.PNNEP ---
Progress Note: A&P Assessment and Plan (1) Acute hyponatremia: Code(s): E87.1 - Hypo-osmolality and hyponatremia Status: Acute Assessment and Plan: suspect due to increased free water intake + SSRI (citalopram) use evaluation to date: - TSH okay - cortisol borderline low but stimulation test okay - free kappa/lambda light chain ratio negative - SPEP without M-spike; UPEP pending - urine sodium more suggestive of volume depletion since she needs SSRI, will work around this issue continue to follow repeat sodium levels if no improvement by later today, will consider 3% saline continue fluid restriction (2) Chronic renal insufficiency: Code(s): N18.9 - Chronic kidney disease, unspecified Status: Chronic Assessment and Plan: stable at this time continue supportive therapy (3) Essential hypertension: Code(s): I10 - Essential (primary) hypertension Status: Chronic Assessment and Plan: has been fluctuating continue current BP medications follow trend of hemodynamics (4) Alzheimer's dementia with behavioral disturbance: Qualifiers: Alzheimer's disease onset: late-onset Qualified Code(s): G30.1 - Alzheimer's disease with late onset; F02.81 - Dementia in other diseases classified elsewhere with behavioral disturbance Code(s): G30.9 - Alzheimer's disease, unspecified; F02.81 - Dementia in other diseases classified elsewhere with behavioral disturbance Status: Chronic Assessment and Plan: appears stable on memantine Will continue to follow. Subjective Date/time seen: 07/05/20 14:24 Appears to be doing reasonably well at the time of my visit; no acute events overnight or earlier this AM; no apparent distress voiced currently; no other complaints noted. Exam Narrative: Exam Narrative: General: WD/WN elderly female in NAD Heart: normal S1 and S2; no rub Lungs: clear to auscultation Abdomen: soft, nontender, nondistended, positive bowel sounds Extremities: no cyanosis or clubbing; no edema Skin: warm and dry Objective Data Vital Signs Vital Signs: Vital Signs Temp Pulse Resp BP Pulse Ox 07/05/20 10:21 90 07/05/20 08:00 90 14 96 07/05/20 05:55 36.8 C 82 14 164/68 H 96 07/04/20 20:39 100 07/04/20 19:59 36.8 C 105 H 18 162/90 H 98 Intake/Output Intake/Output: Intake & Output 07/02/20 07/03/20 07/04/20 07/05/20 23:59 23:59 23:59 23:59 Intake Total 1229 1130 1340 280 Output Total 700 500 500 300 Balance 529 630 840 -20 Meds/Results Medications: Active Medications Generic Name Dose Route Start Last Admin Trade Name Freq PRN Reason Stop Dose Admin Amlodipine Besylate 5 mg 07/04/20 10:30 07/05/20 10:22 Amlodipine Besylate 5 Mg Tablet PO 5 mg QAM AMY Administration Buspirone HCl 5 mg 07/03/20 09:00 07/05/20 10:21 Buspirone Hcl 5 Mg Tablet BY MOUTH 5 mg DAILY AMY Administration Citalopram Hydrobromide 20 mg 07/03/20 09:00 07/05/20 10:21 Citalopram Hydrobromide 20 Mg Tablet PO 20 mg DAILY AMY Administration Cyanocobalamin 1,000 mcg 07/03/20 09:00 07/05/20 10:21 Cyanocobalamin 1,000 Mcg Tablet PO 08/02/20 09:01 1,000 mcg DAILY AMY Administration Labetalol HCl 50 mg 07/04/20 10:55 07/05/20 10:21 Labetalol Hcl 50 Mg Tablet PO 50 mg Q12HR AMY Administration Lisinopril 10 mg 07/03/20 09:00 07/05/20 10:21 Lisinopril 10 Mg Tablet PO 10 mg DAILY AMY Administration Lorazepam 0.5 mg 07/03/20 08:08 Lorazepam (*Crx) 0.5 Mg Tablet PO DAILY PRN anxiety Memantine 7 mg 07/03/20 09:00 07/05/20 10:26 Memantine Hcl Xr 7 Mg Cap BY MOUTH 08/02/20 09:01 7 mg DAILY AMY Administration Labs Labs: Laboratory Tests 07/05/20 05:20 07/05/20 12:02 Quality VTE Prophylaxis VTE prophylaxis: mechanical ordered
[2020-07-05 19:10] LABS: Sodium 123 mmol/L (137-145)
[2020-07-05] MEDS: SODIUM CHLORIDE 3% 500 ML 50 ML IV CONT (20:42)
[2020-07-05 20:45] VITALS: BP 170/74; PULSE 85; RESP 16; TEMP 36.4; O2SAT 96
[2020-07-05 20:48] VITALS: PULSE 86
[2020-07-06 00:55] LABS: Anion Gap 6 mmol/L (8-16); Blood Urea Nitrogen 34 mg/dL (7-17); Calcium 9.1 mg/dL (8.4-10.2); Carbon Dioxide 26 mmol/L (22-30); Chloride 96 mmol/L (98-107); Estimated CRCL calculation 23 ml/min; Estimated Glomerular Filt Rate 36; Glucose 101 mg/dL (65-105); Potassium 4.7 mmol/L (3.4-5.0); Sodium 128 mmol/L (137-145)
[2020-07-06 05:20] VITALS: BP 164/70; PULSE 72; RESP 16; TEMP 36.3; O2SAT 99
[2020-07-06 06:24] LABS: Hematocrit 31.1 % (37.0-47.0); Hemoglobin 10.6 g/dL (12.0-15.0); Mean Corpuscular HGB Conc 34.1 g/dl (32-36); Mean Corpuscular Hemoglobin 30.8 pg (26-34); Mean Corpuscular Volume 90.4 fl (80-100); Platelet Count Result 205 k/mm3 (150-375); Red Blood Count 3.44 M/mm3 (4.2-5.4); Red Cell Distribution Width 12.3 % (11.5-14.5); White Blood Count 8.1 K/mm3 (4.5-10.0)
[2020-07-06 06:51] LABS: Albumin Level 3.5 g/dL (3.5-5.1); Anion Gap 7 mmol/L (8-16); Blood Urea Nitrogen 32 mg/dL (7-17); Calcium 9.3 mg/dL (8.4-10.2); Carbon Dioxide 27 mmol/L (22-30); Chloride 96 mmol/L (98-107); Estimated CRCL calculation 24 ml/min; Estimated Glomerular Filt Rate 39; Glucose 91 mg/dL (65-105); Magnesium 2.1 mg/dL (1.6-2.3); Phosphorus 4.2 mg/dL (2.5-4.5); Sodium 130 mmol/L (137-145)
[2020-07-06 08:00] VITALS: PULSE 72; RESP 16; O2SAT 99
[2020-07-06] MEDS: DEXTROSE 5% IN WATER 500 ML 200 ML IV CONT (08:19)
[2020-07-06 08:25] LABS: Potassium 4.7 mmol/L (3.4-5.0)
[2020-07-06] MEDS: lisinopriL 10 MG TABLET PO (09:19)
[2020-07-06] MEDS: CITALOPRAM HYDROBROMIDE 20 MG TABLET PO (09:19)
[2020-07-06] MEDS: busPIRone HCL 5 MG TABLET BY MOUTH (09:20)
[2020-07-06] MEDS: CYANOCOBALAMIN 1,000 MCG TABLET 1000 MCG PO (09:20)
[2020-07-06 09:36] VITALS: PULSE 72
[2020-07-06] MEDS: LABETALOL HCL 100 MG TABLET PO ×2 (09:36→20:58)
[2020-07-06] MEDS: amLODIPine BESYLATE 5 MG TABLET PO (09:37)
[2020-07-06] MEDS: MEMANTINE HCL XR 7 MG CAP BY MOUTH (09:37)
--- NOTE | 2020-07-06 11:06 | PM.IMPN ---
Progress Note: A&P Assessment and Plan (1) Acute hyponatremia: Code(s): E87.1 - Hypo-osmolality and hyponatremia Status: Acute Assessment and Plan: Serum Na now [address] Whitney has ordered D5W. Appreciate recommendations. 800 mL/day fluid restriction per Nephrology rec Monitor serum Na Await further rec from Dr. Whitney (2) Orthostatic hypotension: Code(s): I95.1 - Orthostatic hypotension Status: Acute Assessment and Plan: BP 160s sys this morning. Prior to arrival, her home Amlodipine and BB were stopped per Dr. Jimenez given low BP/orthostatic BP in his office. BP now 160s sys this afternoon Will continue home amlodipine and increase labetalol to home dose of 100 mg Q12h Monitor BP overnight Home Lisinopril continues Adjust medications accordingly (3) CKD (chronic kidney disease) stage 4, GFR 15-29 ml/min: Code(s): N18.4 - Chronic kidney disease, stage 4 (severe) Status: Acute Assessment and Plan: Cr 1.30 this morning. Appears to be at baseline. Dr. Jimenez following Monitor BMP (4) Alzheimer's dementia with behavioral disturbance: Qualifiers: Alzheimer's disease onset: late-onset Qualified Code(s): G30.1 - Alzheimer's disease with late onset; F02.81 - Dementia in other diseases classified elsewhere with behavioral disturbance Code(s): G30.9 - Alzheimer's disease, unspecified; F02.81 - Dementia in other diseases classified elsewhere with behavioral disturbance Status: Chronic Assessment and Plan: Appears to be at baseline. Pleasantly confused for me this morning. No change in her mental status Continue home medications fall precautions Subjective Date/time seen: 07/06/20 11:06 Interval history: Patient is a 85 yo F with history of depression, anxiety, dementia, hypertension and kidney disease stage 4 who is seen in follow up for hyponatremia and orthostatic hypotension. Patient states she feels well again today. No complaints. She does have baseline dementia and is A&O to self, , and that she is in a hospital; answers questions appropriately for the most part, but is occasionally pleasantly confused again today. Currently she denies f/c/s, dizziness, lightheadedness, cp/palpitations, sob/cough, n/v, abd pain, dysuria, hematuria, cloudy urine, calf pain/swelling. Review of Systems Review of Systems: All systems reviewed & are unremarkable except as noted in HPI and below (limited due to baseline dementia) Exam Narrative: Exam Narrative: General: Patient resting supine in bed in no acute distress. A&O to self, , and hospital. Pleasantly confused HEENT: Normocephalic, EOMI, oral mucosa moist. Cardiovascular: Normal rate and regular rhythm. No notable murmur, rub, or gallop. Respiratory: Lungs clear to auscultation all subramanian. Non-labored breathing. Abdomen: Soft, non-tender, non-distended, bowel sounds present. Extremities: Peripheral pulses intact. No edema. NTTP b/l calves Neuro: No focal neurological deficits. Speech is clear. Objective Data Vital Signs Vital Signs: Last Vital Signs Temp 97.3 F L 07/06/20 05:20 Pulse 72 07/06/20 09:36 Resp 16 07/06/20 05:20 BP 164/70 H 07/06/20 05:20 Pulse Ox 99 07/06/20 05:20 Intake/Output Intake/Output: Intake & Output 07/03/20 07/04/20 07/05/20 07/06/20 23:59 23:59 23:59 23:59 Intake Total 1130 1340 950 600 Output Total 500 500 700 350 Balance 630 840 250 250 Meds/Results Medications: Active Medications Generic Name Dose Route Start Last Admin Trade Name Freq PRN Reason Stop Dose Admin Amlodipine Besylate 5 mg 07/04/20 10:30 07/06/20 09:37 Amlodipine Besylate 5 Mg Tablet PO 5 mg QAM AMY Administration Buspirone HCl 5 mg 07/03/20 09:00 07/06/20 09:20 Buspirone
--- NOTE | 2020-07-06 11:14 | PCOTNOTE ---
Attempted to see patient this am, however patient reported already completing ADLs. Attempted upper extremity exercises, however pt had increased discomfort and pain in shoulders with gentle exercise.
[2020-07-06 13:17] LABS: Sodium 127 mmol/L (137-145)
[2020-07-06 14:00] VITALS: BP 128/55; PULSE 66; RESP 14; TEMP 36.1; O2SAT 99
--- NOTE | 2020-07-06 15:27 | PM.PNNEP ---
Progress Note: A&P Assessment and Plan (1) Acute hyponatremia: Code(s): E87.1 - Hypo-osmolality and hyponatremia Status: Acute Assessment and Plan: suspect due to increased free water intake + SSRI (citalopram) use evaluation to date: - TSH okay - cortisol borderline low but stimulation test okay - free kappa/lambda light chain ratio negative - SPEP without M-spike; UPEP pending - urine sodium more suggestive of volume depletion since she needs SSRI, will work around this issue received 3% saline yesterday concern for overcorrection again by AM labs so D5W given (122 to 130 in a 24h period of time) continue fluid restriction follow repeat sodium levels (2) Chronic renal insufficiency: Code(s): N18.9 - Chronic kidney disease, unspecified Status: Chronic Assessment and Plan: stable at this time continue supportive therapy (3) Essential hypertension: Code(s): I10 - Essential (primary) hypertension Status: Chronic Assessment and Plan: has been fluctuating continue current BP medications follow trend of hemodynamics (4) Alzheimer's dementia with behavioral disturbance: Qualifiers: Alzheimer's disease onset: late-onset Qualified Code(s): G30.1 - Alzheimer's disease with late onset; F02.81 - Dementia in other diseases classified elsewhere with behavioral disturbance Code(s): G30.9 - Alzheimer's disease, unspecified; F02.81 - Dementia in other diseases classified elsewhere with behavioral disturbance Status: Chronic Assessment and Plan: appears stable on memantine Will continue to follow. Subjective Date/time seen: 07/06/20 15:27 Appears to be doing fairly well at the time of my visit; no acute complaints voiced; no events overnight or earlier this AM; no distress to report in general. Exam Narrative: Exam Narrative: General: WD/WN elderly female in NAD Heart: normal S1 and S2; no rub Lungs: clear to auscultation Abdomen: soft, nontender, nondistended, positive bowel sounds Extremities: no cyanosis or clubbing; no edema Skin: warm and intact Objective Data Vital Signs Vital Signs: Vital Signs Temp Pulse Resp BP Pulse Ox 07/06/20 14:00 36.1 C L 66 14 128/55 L 99 07/06/20 09:36 72 07/06/20 08:00 72 16 99 07/06/20 05:20 36.3 C L 72 16 164/70 H 99 07/05/20 20:48 86 07/05/20 20:45 36.4 C 85 16 170/74 H 96 Intake/Output Intake/Output: Intake & Output 07/03/20 07/04/20 07/05/20 07/06/20 23:59 23:59 23:59 23:59 Intake Total 1130 1965 140 3573 Output Total 500 500 700 350 Balance 630 840 250 730 Meds/Results Medications: Active Medications Generic Name Dose Route Start Last Admin Trade Name Freq PRN Reason Stop Dose Admin Amlodipine Besylate 5 mg 07/04/20 10:30 07/06/20 09:37 Amlodipine Besylate 5 Mg Tablet PO 5 mg QAM AMY Administration Buspirone HCl 5 mg 07/03/20 09:00 07/06/20 09:20 Buspirone Hcl 5 Mg Tablet BY MOUTH 5 mg DAILY AMY Administration Citalopram Hydrobromide 20 mg 07/03/20 09:00 07/06/20 09:19 Citalopram Hydrobromide 20 Mg Tablet PO 20 mg DAILY AMY Administration Cyanocobalamin 1,000 mcg 07/03/20 09:00 07/06/20 09:20 Cyanocobalamin 1,000 Mcg Tablet PO 08/02/20 09:01 1,000 mcg DAILY AMY Administration Labetalol HCl 100 mg 07/06/20 09:00 07/06/20 09:36 Labetalol Hcl 100 Mg Tablet PO 100 mg Q12HR AMY Administration Lisinopril 10 mg 07/03/20 09:00 07/06/20 09:19 Lisinopril 10 Mg Tablet PO 10 mg DAILY AMY Administration Lorazepam 0.5 mg 07/03/20 08:08 Lorazepam (*Crx) 0.5 Mg Tablet PO DAILY PRN anxiety Memantine 7 mg 07/03/20 09:00 07/06/20 09:37 Memantine Hcl Xr 7 Mg Cap BY MOUTH 08/02/20 09:01 7 mg DAILY AMY Administration Labs Labs: Laboratory Tests
[2020-07-06 18:12] LABS: Sodium 129 mmol/L (137-145)
[2020-07-06 20:32] VITALS: BP 142/62; PULSE 73; RESP 18; TEMP 36.7; O2SAT 97
[2020-07-06 20:58] VITALS: PULSE 72
[2020-07-06 21:20] LABS: Albumin 3.4 g/dL (3.8-4.8); Alpha 1 Globulin 0.4 g/dL (0.2-0.3); Alpha 2 Globulin 0.7 g/dL (0.5-0.9); Beta 1 Globulin 0.4 g/dL (0.4-0.6); Gamma Globulin 0.5 g/dL (0.8-1.7); Protein, Total 5.6 g/dL (6.1-8.1)
[2020-07-07 06:00] VITALS: BP 141/64; PULSE 68; RESP 16; TEMP 36.4; O2SAT 97
[2020-07-07 06:02] LABS: Albumin Level 3.2 g/dL (3.5-5.1); Anion Gap 4 mmol/L (8-16); Blood Urea Nitrogen 32 mg/dL (7-17); Calcium 9.1 mg/dL (8.4-10.2); Carbon Dioxide 26 mmol/L (22-30); Chloride 99 mmol/L (98-107); Estimated CRCL calculation 24 ml/min; Estimated Glomerular Filt Rate 39; Glucose 93 mg/dL (65-105); Phosphorus 4.3 mg/dL (2.5-4.5); Potassium 4.4 mmol/L (3.4-5.0); Sodium 129 mmol/L (137-145)
[2020-07-07] MEDS: amLODIPine BESYLATE 5 MG TABLET PO (09:10)
[2020-07-07] MEDS: CITALOPRAM HYDROBROMIDE 20 MG TABLET PO (09:10)
[2020-07-07 09:11] VITALS: PULSE 68
[2020-07-07] MEDS: lisinopriL 10 MG TABLET PO (09:11)
[2020-07-07] MEDS: CYANOCOBALAMIN 1,000 MCG TABLET 1000 MCG PO (09:11)
[2020-07-07] MEDS: MEMANTINE HCL XR 7 MG CAP BY MOUTH (09:11)
[2020-07-07] MEDS: busPIRone HCL 5 MG TABLET BY MOUTH (09:11)
[2020-07-07] MEDS: LABETALOL HCL 100 MG TABLET PO (09:11)
--- NOTE | 2020-07-07 14:05 | PM.DS ---
DS: Admitting Diagnosis Admitting Diagnosis Admitting Diagnosis: Hypotension at manager of security office DS: Discharge Diagnosis Discharge Diagnosis (1) Acute hyponatremia: Code(s): E87.1 - Hypo-osmolality and hyponatremia Status: Acute Assessment and Plan: Serum Na now 129 today; stable from yesterday. Discussed with Dr. Whitney who was okay with discharge from his standpoint. Appreciate recommendations. 1200 mL/day fluid restriction per Dr. Whitney recommendations Monitor serum Na in 1 week with BMP Follow up with Dr. Jimenez and PCP (2) Orthostatic hypotension: Code(s): I95.1 - Orthostatic hypotension Status: Acute Assessment and Plan: With known Hypertension. Originally on amlodipine, lisinopril and labetalol. Prior to arrival, her home Amlodipine and BB were stopped per Dr. Jimenez given low BP/orthostatic BP in his office. All have been resumed with more reasonable BP. Will continue home antihypertensives after discharge F/u with PCP (3) CKD (chronic kidney disease) stage 4, GFR 15-29 ml/min: Code(s): N18.4 - Chronic kidney disease, stage 4 (severe) Status: Acute Assessment and Plan: Cr 1.30 this morning. Appears to be at baseline. BMP in 1 week F/u with Dr. Jimenez (4) Alzheimer's dementia with behavioral disturbance: Qualifiers: Alzheimer's disease onset: late-onset Qualified Code(s): G30.1 - Alzheimer's disease with late onset; F02.81 - Dementia in other diseases classified elsewhere with behavioral disturbance Code(s): G30.9 - Alzheimer's disease, unspecified; F02.81 - Dementia in other diseases classified elsewhere with behavioral disturbance Status: Chronic Assessment and Plan: Appears to be at baseline. Pleasantly confused for me this morning. No change in her mental status Continue home medications fall precautions during stay DS: Summary Hospital Course Reason for hospitalization: Hyponatremia, Orthostatic hypotension Hospital Course: Date of arrival: 07/02/20 Date of discharge: 07/07/20 Patient is a 85 year old female with a past medical history of depression, anxiety, dementia, hypertension and kidney disease stage 4 who presented to the ER on 07/[address] Jimenez's office to orthostatic hypotension. While in the ED, patient was found to have acute hyponatremia with level at 120. Orthostatic hypotension appeared to have resolved at arrival to ED. Dr. Jimenez (nephrology) consulted from the ED and ordered NS at 75 mL. Patient admitted under this setting. Please see H&P for further details. Patient was admitted to the hospitalist service for further management/treatment. Patient's labetol and amlodpine were stopped per Dr. Jimenez prior to arrival given her profound hypotension upon standing. As clinical course continued, she was found to have elevated BP readings and her home medications were resumed to what they once were. Her sodium unfortunately overcorrected too quickly after admission and thus was given D5W and DDAVP. Sodium drifted then down to 122. This was treated with fluid restriction and eventually trended to 130 and was given D5W on 07/06. Na stabilized at 129 on 07/07. She was okay for discharge from Nephrology standpoint. She was to be discharged on 1200 mL/day fluid restriction. She was to follow up with her PCP and Dr. Jimenez after discharge. BMP was to be done in 1 week. Patient agreeable and comfortable with plan for discharge. Patient hemodynamically stable and in improved condition for discharge on 07/07 Status at Discharge Overall status at discharge: patient is progressing back to baseline Time Spent with Patient Time attestation: Total time spent providing and/or coordinating discharge services: Time spent: Greater than 30
[2020-07-07 14:36] VITALS: BP 139/51; PULSE 83; RESP 16; TEMP 36.5; O2SAT 99
== END 2020-07-07 16:00 | disposition home health service (06) | DRG 641 ==
LOC: ANHED 16:43 → ANH3MED 17:37
PROVIDERS: Internal Medicine Nephrology; Physician Assistant; Admitting Provider Family Medicine; Emergency Provider Emergency Medicine; PCP Family Medicine; Visit Provider Family Medicine
DX: E87.1 Hypo-osmolality and hyponatremia (principal); N18.4 Chronic kidney disease, stage 4 (severe); F02.81 Dementia in other diseases classified elsewhere, unspecified severity, with behavioral disturbance; N25.81 Secondary hyperparathyroidism of renal origin; I12.9 Hypertensive chronic kidney disease with stage 1 through stage 4 chronic kidney disease, or unspecified chronic kidney disease; I95.1 Orthostatic hypotension; G30.1 Alzheimer's disease with late onset; F41.8 Other specified anxiety disorders; D63.1 Anemia in chronic kidney disease; M89.49 Other hypertrophic osteoarthropathy, multiple sites; Z96.642 Presence of left artificial hip joint; E55.9 Vitamin D deficiency, unspecified; Z85.3 Personal history of malignant neoplasm of breast
CPT/HCPCS: 36415; 80048; 80053; 80069; 81001; 82306; 82533; 82607; 82746; 83735; 84155; 84165; 84295; 84443; 85025; 85027; 93005; 96361; 96365; 96366; 96367; 96375; 97110; 97116; 97161; 97165; 97535; 99285; A9270; G0378; J0360; J0834; J2597; J3475; J7030; J7060; J7070; J7131

== ENCOUNTER 2020-07-15 10:34 | Outpatient (NON) | payer MEDICARE, SELFPAY ==
[2020-07-15 11:09] LABS: Anion Gap 7 mmol/L (8-16); Blood Urea Nitrogen 36 mg/dL (7-17); Calcium 9.4 mg/dL (8.4-10.2); Carbon Dioxide 24 mmol/L (22-30); Chloride 105 mmol/L (98-107); Estimated Glomerular Filt Rate 29; Glucose 116 mg/dL (65-105); Potassium 5.1 mmol/L (3.4-5.0); Sodium 136 mmol/L (137-145)
== END 2020-07-15 10:35 ==
PROVIDERS: PCP Family Medicine; Visit Provider Family Medicine
DX: I95.9 Hypotension, unspecified (principal); E87.1 Hypo-osmolality and hyponatremia; R42 Dizziness and giddiness
CPT/HCPCS: 80048

== ENCOUNTER 2021-07-13 20:18 | Emergency (ER) | payer MEDICARE, SELFPAY ==
[2021-07-13 20:24] VITALS: BP 129/59; PULSE 63; RESP 16; TEMP 36.6; O2SAT 98
--- NOTE | 2021-07-13 21:45 | PC.NURSE ---
Pt ambulates with steady gait out of ED, no sign of any kind of distress.
== END 2021-07-14 02:04 | disposition left against medical advice (07) ==
PROVIDERS: PCP Family Medicine
DX: R40.4 Transient alteration of awareness (principal)
CPT/HCPCS: 99199

== ENCOUNTER 2022-08-18 23:59 | Observation (INO) | payer MEDICARE, SELFPAY ==
--- NOTE | ~2022-08-18 | CT_ITS ---
CT head without contrast Indication: Head injury COMPARISON: 05/22/2020 Technique: Serial scans were obtained through the brain without the administration of contrast. Dose reduction technique was used on this scan by utilizing automated exposure control and iterative recon struction technique. The dose-length product (DLP) was 605.33 mGy-cm. Findings: There is no evidence of intracranial hemorrhage, mass lesion, or acute infarct. The ventri cles and subarachnoid spaces are dilated, consistent with mild atrophy. Low attenuation regions are seen within the periventricular white matter bilaterally, likely representing changes from chronic mi crovascular ischemic disease. There is no evidence of edema, mass effect or midline shift. The visu alized paranasal sinuses and mastoid air cells are clear. Impression: No intracranial hemorrhage, mass, or acute infarct. Atrophy and chronic white matter changes, as above. Reviewed, dictated and finalized at [facility]. P MATERIALS BUYER Impression: No intracranial hemorrhage, mass, or acute infarct. Atrophy and chronic white matter changes, as above.
--- NOTE | ~2022-08-18 | US_ITS ---
Renal-Bladder ultrasound Clinical History: Acute on chronic renal injury Technique: Real-time sonographic imaging of the kidneys and urinary bladder was performed. Findings: The right kidney measures 7.3 cm in length and the left kidney measures 8.6 cm. There is no hydronephrosis or renal calculus identified. Renal cortical echogenicity is mildly increased. No werner al mass lesion is identified. The urinary bladder is moderately distended at the time of this exam. No intraluminal echoes are iden tified. No abnormal wall thickening is seen. Impression: Mildly increased renal echogenicity suggest chronic medical renal disease. No hydronephrosis. Reviewed, dictated and finalized at location . ING MACHINE OPERATOR Impression: Mildly increased renal echogenicity suggest chronic medical renal disease. No hydronephrosis.
[2022-08-19] VITALS (42 sets, daily range): BP systolic 116–230; BP diastolic 51–146; PULSE 55–83; RESP 9–19; TEMP 35.6–36.7; O2SAT 91–100
--- NOTE | 2022-08-19 00:01 | ECG_ITS ---
Measurements Intervals [place] Rate: 62 P: 51 NE: 153 QRS: 63 QRSD: 132 T: 48 QT: 450 QTc: 457 Interpretive Statements SINUS RHYTHM RIGHT BUNDLE BRANCH BLOCK ABNORMAL ECG COMPARED TO ECG 07/02/2020 14:56:30 NO SIGNIFICANT CHANGES Electronically Signed On 08-19-2022 7:48:35 TALENT MANAGEMENT MANAGER by Sascha Newman D.O.
[2022-08-19 00:39] LABS: Basophils Percent Auto 0.5 % (0.2-1.2); Eosinophils Absolute Auto 0.2 K/mm3 (0-0.3); Eosinophils Percent Auto 2.7 % (0-4.4); Hematocrit 35.6 % (37.0-47.0); Immature Granulocyte Absolute 0.02 K/mm3 (0.00-0.031); Immature Granulocyte Percent A 0.2 % (0-0.5); Lymphocytes Absolute Auto 2.21 K/mm3 (0.9-3.2); Lymphocytes Percent Auto 26.2 % (18.3-44.2); Mean Corpuscular HGB Conc 30.9 g/dl (32-36); Mean Corpuscular Hemoglobin 29.7 pg (26-34); Mean Corpuscular Volume 96.2 fl (80-100); Mean Platelet Volume 10.6 fl (7.4-10.4); Monocytes Absolute Auto 0.9 K/mm3 (0.1-0.6); Monocytes Percent Auto 10.1 % (2.6-8.5); Neutrophils Absolute Auto 5.1 K/mm3 (1.3-6.7); Neutrophils Percent Auto 60.3 % (45.5-73.1); Platelet Count Result 212 k/mm3 (150-375); Red Cell Distribution Width 13.6 % (11.5-14.5); White Blood Count 8.4 K/mm3 (4.5-10.0)
[2022-08-19 00:44] LABS: Appearance Urine Cloudy (Clear); Bilirubin Urine Negative (Negative); Blood Urine 1+ (Negative); Color Urine Yellow (Yellow); Glucose Urine UA Negative (Negative); Ketones Urine Negative (Negative); Leukocyte Esterase Ur 2+ LEU/UL (Negative); Nitrate Urine Negative (Negative); Protein Urine 2+ mg/dL (Negative); Urobilinogen Urine 0.2 mg/dL (<2.0)
[2022-08-19 00:51] LABS: Alanine Aminotransferase 14 U/L (6-35); Albumin Level 3.6 g/dL (3.5-5.1); Alkaline Phosphatase 111 U/L (38-126); Anion Gap 5 mmol/L (8-16); Aspartate Amino Transferase 18 U/L (14-36); Bilirubin,Total 0.3 mg/dL (0.2-1.3); Blood Urea Nitrogen 34 mg/dL (7-17); Calcium 8.7 mg/dL (8.4-10.2); Carbon Dioxide 26 mmol/L (22-30); Chloride 107 mmol/L (98-107); Estimated CRCL calculation 18 ml/min; Estimated Glomerular Filt Rate 24; Glucose 91 mg/dL (65-110); Potassium 4.8 mmol/L (3.4-5.0); Sodium 138 mmol/L (137-145)
[2022-08-19 00:52] LABS: Bacteria Urine Trace /hpf; Squamous Epithelial Cell Urine Rare /hpf (Few); WBC Urine >75 /hpf
[2022-08-19 00:54] LABS: Add Urine Microscopic? YES
[2022-08-19] MEDS: SODIUM CHLORIDE 0.9% IV 1,000 ML 999 ML IV CONT (02:37)
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
[2022-08-19] MEDS: SODIUM CHLORIDE 0.9% IV 1,000 ML 125 ML IV CONT ×3 (04:31→20:19)
--- NOTE | 2022-08-19 05:26 | PC.NURSE ---
Pt brought up by ED. PATENT PROSECUTION PARALEGAL took automatic blood pressure resulting at 198/79. Dr Cordova notified. No new orders at this time.
--- NOTE | 2022-08-19 05:31 | ADMGEN ---
This patient, Jennifer Negrete, was admitted to 3 [facility] Surg Room 333. Patient/family oriented to hospital policies and general routines including ID bracelet, bed and alarms, visiting hours, pain management, procedures, bathroom and other care routines, personal items, smoking policy, room service/diet, and visiting hours. Information on how to activate the Rapid Response Team has been discussed. Patient/Family are encouraged to report perceived risks to care and to ask questions if they do not understand what they are told or what they should do.
[2022-08-19] MEDS: hydrALAZINE HCL 20 MG/ML VIAL 10 MG IV PUSH (07:05)
[2022-08-19] MEDS: SODIUM BICARBONATE TAB 650 MG TABLET PO ×2 (08:39→20:18)
[2022-08-19] MEDS: CHOLECALCIFEROL 1,000 UNITS TABLET 1000 UNITS PO (08:39)
[2022-08-19] MEDS: CITALOPRAM HYDROBROMIDE 20 MG TABLET PO (08:40)
[2022-08-19] MEDS: LABETALOL HCL 50 MG TABLET PO ×2 (08:40→20:17)
[2022-08-19] MEDS: ACETAMINOPHEN 325 MG TABLET 650 MG PO ×2 (08:40→20:18)
[2022-08-19] MEDS: busPIRone HCL 5 MG TABLET PO (08:40)
[2022-08-19 09:20] LABS: Influenza A QL RT-PCR Negative (Negative); Influenza B QL RT-PCR Negative (Negative); SARS-CoV-2 RNA PCR Negative
[2022-08-19] MEDS: ENOXAPARIN 30 MG/0.3 ML SYRINGE SUB-Q (11:34)
[2022-08-19 13:52] LABS: Anion Gap 7 mmol/L (8-16); Blood Urea Nitrogen 29 mg/dL (7-17); Calcium 8.4 mg/dL (8.4-10.2); Carbon Dioxide 22 mmol/L (22-30); Chloride 110 mmol/L (98-107); Estimated CRCL calculation 23 ml/min; Estimated Glomerular Filt Rate 33; Glucose 91 mg/dL (65-110); Potassium 4.8 mmol/L (3.4-5.0); Sodium 139 mmol/L (137-145)
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
[2022-08-19] MEDS: MEMANTINE HCL XR 7 MG CAP PO (20:17)
[2022-08-19] MEDS: CYANOCOBALAMIN 1,000 MCG TABLET 1000 MCG PO (20:17)
[2022-08-19] MEDS: lisinopriL 10 MG TABLET PO (20:17)
[2022-08-19] MEDS: LORATADINE 10 MG TABLET PO (20:18)
[2022-08-20] MEDS: SODIUM CHLORIDE 0.9% IV 1,000 ML 125 ML IV CONT (05:13)
[2022-08-20 06:00] VITALS: BP 173/75; PULSE 73; RESP 18; TEMP 36.2; O2SAT 99
[2022-08-20 06:40] LABS: Hematocrit 32.7 % (37.0-47.0); Mean Corpuscular HGB Conc 30.6 g/dl (32-36); Mean Corpuscular Hemoglobin 29.4 pg (26-34); Mean Corpuscular Volume 96.2 fl (80-100); Mean Platelet Volume 10.7 fl (7.4-10.4); Platelet Count Result 195 k/mm3 (150-375); Red Cell Distribution Width 13.5 % (11.5-14.5); White Blood Count 7.3 K/mm3 (4.5-10.0)
[2022-08-20 06:52] LABS: Anion Gap 3 mmol/L (8-16); Blood Urea Nitrogen 35 mg/dL (7-17); Calcium 8.6 mg/dL (8.4-10.2); Carbon Dioxide 24 mmol/L (22-30); Chloride 109 mmol/L (98-107); Estimated CRCL calculation 22 ml/min; Estimated Glomerular Filt Rate 31; Glucose 83 mg/dL (65-110); Potassium 4.4 mmol/L (3.4-5.0); Sodium 136 mmol/L (137-145)
[2022-08-20 08:26] VITALS: PULSE 73
[2022-08-20] MEDS: LABETALOL HCL 50 MG TABLET PO ×2 (08:26→22:24)
[2022-08-20] MEDS: SODIUM BICARBONATE TAB 650 MG TABLET PO ×2 (08:26→22:24)
[2022-08-20] MEDS: CITALOPRAM HYDROBROMIDE 20 MG TABLET PO (08:26)
[2022-08-20] MEDS: busPIRone HCL 5 MG TABLET PO (08:26)
[2022-08-20] MEDS: ACETAMINOPHEN 325 MG TABLET 650 MG PO ×2 (08:26→22:24)
[2022-08-20] MEDS: ENOXAPARIN 30 MG/0.3 ML SYRINGE SUB-Q (08:27)
[2022-08-20 10:39] VITALS: O2SAT 94
--- NOTE | 2022-08-20 13:21 | PM.IMPN ---
Progress Note: A&P Assessment and Plan (1) Fall: Code(s): W19.XXXA - Unspecified fall, initial encounter Status: Acute Assessment and Plan: Patient suffered an unwitnessed ground level fall at home, presumed mechanical. appears the patient hit her head. I reviewed the patients head CT which showed no acute findings. Fall precautions implemented. Appreciate PT/ OT evals. Planning for SNF placement following discharge. (2) Acute UTI: Code(s): N39.0 - Urinary tract infection, site not specified Status: Acute Assessment and Plan: Urinalysis grossly abnormal. Patient not able to indicate symptoms. Continue IV ceftriaxone while awaiting urine culture results. Tailor antibiotics accordingly (3) Acute kidney injury superimposed on chronic kidney disease: Code(s): N17.9 - Acute kidney failure, unspecified; N18.9 - Chronic kidney disease, unspecified Status: Acute Assessment and Plan: Review of prior labs demonstrates baseline creatinine to be around 1.3-1.4. BMP on admission was reviewed in creatinine elevated up to 2.0. Suspect this to be prerenal secondary to dehydration and creatinine has improved following IV fluids. Creatinine 1.6 today. IV fluids discontinued as patient is tolerating p.o. intake. Renal ultrasound showed mildly increased renal echogenicity suggesting chronic medical renal disease with no evidence of hydronephrosis or acute findings. Suspect patient is close to her baseline. Monitor renal function closely, check BMP tomorrow (4) Alzheimer's dementia with behavioral disturbance: Code(s): G30.9 - Alzheimer's disease, unspecified; F02.81 - Dementia in other diseases classified elsewhere, unspecified severity, with behavioral disturbance Status: Chronic Assessment and Plan: Patient with progressive dementia and worsening behavioral disturbances. Patient's POA no longer feels patient is able to be cared for in her home. Continue memantine. Patient is at risk for worsening confusion/hospital delirium during admission. Will make efforts to minimize disturbances and keep patient oriented. Planning for placement discharge (5) Essential hypertension: Code(s): I10 - Essential (primary) hypertension Status: Acute Assessment and Plan: Blood pressures were initially quite elevated, may be related to agitation versus missed antihypertensives. Blood pressure has improved since restarting home antihypertensives, however still slightly elevated. Continue lisinopril and labetalol. Monitor BP trends closely Subjective Date/time seen: 08/20/22 13:21 Interval history: Date of service: 08/20/2022 Jennifer Negrete is an 87-year-old female with a history of chronic kidney disease with secondary hyperparathyroidism, hypertension, breast cancer s/p bilateral mastectomy, dementia, osteoporosis?who is seen in follow-up for UTI. The patient is not able to provide any history given her dementia. Review of Systems Review of Systems: ROS unobtainable: Yes unobtainable due to mental status Exam Narrative: General: thin, well-appearing 87-year-old female, sitting up in bed, comfortable, NARD Neuro: awake, alert and oriented x2, speech clear, no focal neuro deficits noted HEENMT: normocephalic, atraumatic, EOMI, sclerae anicteric Respiratory: clear to auscultation bilaterally, nonlabored breathing Cardio: regular rate, regular rhythm with S1-S2 Abdomen: nondistended, normoactive bowel sounds, soft, nontender to palpation Extremities: no edema, erythema, or tenderness to palpation Skin: no rashes or lesions, warm and dry Psych: calm, pleasantly confused Objective Data Vital Signs Vital Signs: Vital Signs - 24 hr 08/19/22 14:30 08/19/22 20:16 08/19/22 22:00 Temperature 98.1 F 96.0 F L 96.3 F L Pulse Rate 83 79 79 Respiratory Rate 16 18 17 Blood Pressure 146/85 H 191/63 H 188/61 H Pulse Oximetry 100 100 100
[2022-08-20 14:33] VITALS: BP 202/92; PULSE 70; RESP 17; TEMP 36.3; O2SAT 96
[2022-08-20] MEDS: hydrALAZINE HCL 20 MG/ML VIAL 10 MG IV PUSH (14:46)
[2022-08-20 21:31] VITALS: BP 202/75; PULSE 86; RESP 20; TEMP 36.3; O2SAT 100
[2022-08-20] MEDS: MEMANTINE HCL XR 7 MG CAP PO (22:24)
[2022-08-20] MEDS: lisinopriL 10 MG TABLET PO (22:24)
[2022-08-20] MEDS: CYANOCOBALAMIN 1,000 MCG TABLET 1000 MCG PO (22:25)
[2022-08-21] MEDS: hydrALAZINE HCL 20 MG/ML VIAL 10 MG IV PUSH (05:14)
[2022-08-21] MEDS: ONDANSETRON INJ 4 MG/2 ML VIAL IV PUSH ×2 (05:14→22:48)
[2022-08-21 05:23] VITALS: BP 226/84; PULSE 85; RESP 20; TEMP 36.6; O2SAT 99
[2022-08-21 06:28] LABS: Hematocrit 34.6 % (37.0-47.0); Mean Corpuscular HGB Conc 31.8 g/dl (32-36); Mean Corpuscular Hemoglobin 30.4 pg (26-34); Mean Corpuscular Volume 95.6 fl (80-100); Platelet Count Result 212 k/mm3 (150-375); Red Blood Count 3.62 M/mm3 (4.2-5.4); Red Cell Distribution Width 13.4 % (11.5-14.5); White Blood Count 9.8 K/mm3 (4.5-10.0)
[2022-08-21 06:48] LABS: Anion Gap 5 mmol/L (8-16); Blood Urea Nitrogen 26 mg/dL (7-17); Carbon Dioxide 24 mmol/L (22-30); Chloride 107 mmol/L (98-107); Estimated CRCL calculation 26 ml/min; Estimated Glomerular Filt Rate 39; Glucose 94 mg/dL (65-110); Potassium 4.2 mmol/L (3.4-5.0); Sodium 136 mmol/L (137-145)
--- NOTE | 2022-08-21 06:48 | PC.NURSE ---
Patient up and down impulsively all night. Slept very little and had several moments of crying about what seemed from her word salad to be her decline in mental status and her family not being here. Patient BP was elevated and prn given per MD orders and parameters. Otherwise patient urine appears to be clearing and patient cooperative with staff. Patient condition stable and unchanged.
[2022-08-21] MEDS: ENOXAPARIN 30 MG/0.3 ML SYRINGE SUB-Q (12:25)
[2022-08-21 12:26] VITALS: PULSE 85
[2022-08-21] MEDS: LABETALOL HCL 50 MG TABLET PO ×2 (12:26→22:50)
[2022-08-21] MEDS: SODIUM BICARBONATE TAB 650 MG TABLET PO ×2 (12:26→22:50)
[2022-08-21] MEDS: ACETAMINOPHEN 325 MG TABLET 650 MG PO ×2 (12:26→22:49)
[2022-08-21] MEDS: busPIRone HCL 5 MG TABLET PO (12:26)
[2022-08-21] MEDS: CITALOPRAM HYDROBROMIDE 20 MG TABLET PO (12:27)
[2022-08-21] MEDS: lisinopriL 20 MG TABLET PO (12:33)
[2022-08-21 14:00] VITALS: BP 164/70; PULSE 81; RESP 20; TEMP 36.3; O2SAT 98
--- NOTE | 2022-08-21 15:12 | PM.IMPN ---
Progress Note: A&P Assessment and Plan (1) Fall: Code(s): W19.XXXA - Unspecified fall, initial encounter Status: Acute Assessment and Plan: Patient suffered an unwitnessed ground level fall at home, presumed mechanical. appears the patient hit her head. I reviewed the patients head CT which showed no acute findings. Fall precautions implemented. Appreciate PT/ OT evals. Planning for SNF placement following discharge. Discussed with care coordination, she has been accepted to facility, awaiting bed availability (2) Acute UTI: Code(s): N39.0 - Urinary tract infection, site not specified Status: Acute Assessment and Plan: Urinalysis grossly abnormal. Patient not able to indicate symptoms. urine culture with growth of group B strep. Routine susceptibility is not performed as it is predictably susceptible to beta lactams. Will transition to oral cefdinir (3) Acute kidney injury superimposed on chronic kidney disease: Code(s): N17.9 - Acute kidney failure, unspecified; N18.9 - Chronic kidney disease, unspecified Status: Acute Assessment and Plan: Review of prior labs demonstrates baseline creatinine to be around 1.3-1.4. BMP on admission was reviewed and creatinine elevated up to 2.0. Suspect this to be prerenal secondary to dehydration and creatinine has improved following IV fluids. Creatinine 1.3 today. IV fluids discontinued as patient is tolerating p.o. intake. Renal ultrasound showed mildly increased renal echogenicity suggesting chronic medical renal disease with no evidence of hydronephrosis or acute findings. renal function is back to baseline. (4) Alzheimer's dementia with behavioral disturbance: Code(s): G30.9 - Alzheimer's disease, unspecified; F02.81 - Dementia in other diseases classified elsewhere, unspecified severity, with behavioral disturbance Status: Chronic Assessment and Plan: Patient with progressive dementia and worsening behavioral disturbances. Patient's POA no longer feels patient is able to be cared for in her home. Continue memantine. Patient is at risk for worsening confusion/hospital delirium during admission. Will make efforts to minimize disturbances and keep patient oriented. Planning for SNF on discharge with transition to memory care (5) Essential hypertension: Code(s): I10 - Essential (primary) hypertension Status: Acute Assessment and Plan: Blood pressures have been poorly controlled. Etiology for this is unclear. Increased lisinopril to 20 mg daily and transition to morning dosing rather than evening. Continue with labetalol 50 mg b.i.d.. There is room to increase this if needed. Blood pressure has improved following increase in lisinopril with last BP 164/70. Caution not to over correct BP given advanced age Subjective Date/time seen: 08/21/22 15:12 Interval history: Date of service: 08/21/2022 Jennifer Negrete is an 87-year-old female with a history of chronic kidney disease with secondary hyperparathyroidism, hypertension, breast cancer s/p bilateral mastectomy, dementia, osteoporosis?who is seen in follow-up for UTI. not able to obtain any history from the patient given her dementia. Review of Systems Review of Systems: ROS unobtainable: Yes unobtainable due to mental status Exam Narrative: General: thin, well-appearing 87-year-old female, sitting up in bed, comfortable, NARD Neuro: awake, alert and oriented x1, speech clear, no focal neuro deficits noted HEENMT: normocephalic, atraumatic, EOMI, sclerae anicteric Respiratory: clear to auscultation bilaterally, nonlabored breathing Cardio: regular rate, regular rhythm with S1-S2 Abdomen: nondistended, normoactive bowel sounds, soft, nontender to palpation Extremities: no edema, erythema, or tenderness to palpation Skin: no rashes or lesions, warm and dry Psych: calm, pleasantly confused Objective Data
[2022-08-21 21:49] VITALS: BP 150/70; PULSE 97; RESP 16; TEMP 36.8; O2SAT 96
[2022-08-21] MEDS: QUEtiapine FUMARATE 25 MG TABLET PO (22:48)
[2022-08-21] MEDS: LORATADINE 10 MG TABLET PO (22:49)
[2022-08-21] MEDS: CEFDINIR 300 MG CAPSULE PO (22:49)
[2022-08-21] MEDS: MEMANTINE HCL XR 7 MG CAP PO (22:49)
[2022-08-21] MEDS: CYANOCOBALAMIN 1,000 MCG TABLET 1000 MCG PO (22:50)
[2022-08-22 06:33] LABS: Hematocrit 28.7 % (37.0-47.0); Hemoglobin 8.8 g/dL (12.0-15.0); Mean Corpuscular HGB Conc 30.7 g/dl (32-36); Mean Corpuscular Hemoglobin 29.4 pg (26-34); Mean Platelet Volume 10.6 fl (7.4-10.4); Platelet Count Result 193 k/mm3 (150-375); Red Blood Count 2.99 M/mm3 (4.2-5.4); Red Cell Distribution Width 13.5 % (11.5-14.5); White Blood Count 7.7 K/mm3 (4.5-10.0)
[2022-08-22 06:43] LABS: Anion Gap 4 mmol/L (8-16); Blood Urea Nitrogen 32 mg/dL (7-17); Calcium 8.3 mg/dL (8.4-10.2); Carbon Dioxide 24 mmol/L (22-30); Chloride 109 mmol/L (98-107); Estimated CRCL calculation 20 ml/min; Estimated Glomerular Filt Rate 29; Glucose 85 mg/dL (65-110); Potassium 4.3 mmol/L (3.4-5.0); Sodium 137 mmol/L (137-145)
[2022-08-22 09:43] VITALS: PULSE 72
[2022-08-22] MEDS: ACETAMINOPHEN 325 MG TABLET 650 MG PO ×2 (09:43→21:59)
[2022-08-22] MEDS: LABETALOL HCL 50 MG TABLET PO ×2 (09:43→22:01)
[2022-08-22] MEDS: busPIRone HCL 5 MG TABLET PO (09:43)
[2022-08-22] MEDS: lisinopriL 20 MG TABLET PO (09:44)
[2022-08-22] MEDS: SODIUM BICARBONATE TAB 650 MG TABLET PO ×2 (09:44→22:00)
[2022-08-22] MEDS: CITALOPRAM HYDROBROMIDE 20 MG TABLET PO (09:44)
[2022-08-22] MEDS: ENOXAPARIN 30 MG/0.3 ML SYRINGE SUB-Q (09:44)
[2022-08-22] MEDS: CEFDINIR 300 MG CAPSULE PO ×2 (09:44→22:00)
[2022-08-22 12:21] LABS: Iron 79 ug/dL (37-170)
[2022-08-22 12:30] LABS: Percent Iron Saturation 26 % (20-50)
[2022-08-22 13:27] LABS: Folic Acid 6.8 ng/mL (2.76->20)
[2022-08-22 14:00] VITALS: BP 192/68; PULSE 68; RESP 18; TEMP 35.8; O2SAT 100
--- NOTE | 2022-08-22 14:30 | PM.IMPN ---
Progress Note: A&P Assessment and Plan (1) Fall: Code(s): W19.XXXA - Unspecified fall, initial encounter Status: Acute Assessment and Plan: Patient suffered an unwitnessed ground level fall at home, presumed mechanical. appears the patient hit her head. I reviewed the patients head CT which showed no acute findings. Fall precautions implemented. Appreciate PT/ OT evals. Planning for SNF placement following discharge. Discussed with care coordination, she has been accepted to facility, awaiting bed availability (2) Acute UTI: Code(s): N39.0 - Urinary tract infection, site not specified Status: Acute Assessment and Plan: Urinalysis grossly abnormal. Patient not able to indicate symptoms. urine culture with growth of group B strep. Routine susceptibility is not performed as it is predictably susceptible to beta lactams. Continue PO cefdinir (3) Acute kidney injury superimposed on chronic kidney disease: Code(s): N17.9 - Acute kidney failure, unspecified; N18.9 - Chronic kidney disease, unspecified Status: Acute Assessment and Plan: Review of prior labs demonstrates baseline creatinine to be around 1.3-1.4. BMP on admission was reviewed and creatinine elevated up to 2.0. Suspect this to be prerenal secondary to dehydration and creatinine has improved following IV fluids. Creatinine 1.7 today. Renal ultrasound showed mildly increased renal echogenicity suggesting chronic medical renal disease with no evidence of hydronephrosis or acute findings. (4) Alzheimer's dementia with behavioral disturbance: Code(s): G30.9 - Alzheimer's disease, unspecified; F02.81 - Dementia in other diseases classified elsewhere, unspecified severity, with behavioral disturbance Status: Chronic Assessment and Plan: Patient with progressive dementia and worsening behavioral disturbances. Patient's POA no longer feels patient is able to be cared for in her home. Continue memantine. Patient is at risk for worsening confusion/hospital delirium during admission. Will make efforts to minimize disturbances and keep patient oriented. Planning for SNF on discharge with transition to memory care (5) Essential hypertension: Code(s): I10 - Essential (primary) hypertension Status: Acute Assessment and Plan: Blood pressures initially elevated and have improved with increased dose lisinopril. continue home labetalol 50 mg b.i.d. and lisinopril at increased dose 20 mg daily given in the morning. Last BP 150/70. Continue to monitor trends. Caution not to over correct BP given advanced age Subjective Date/time seen: 08/22/22 14:30 Interval history: Date of service: 08/21/2022 Jennifer Negrete is an 87-year-old female with a history of chronic kidney disease with secondary hyperparathyroidism, hypertension, breast cancer s/p bilateral mastectomy, dementia, osteoporosis?who is seen in follow-up for UTI. Patient is asleep on my encounter today. Did not attempt to awaken the patient. Reportedly she was more restless last night and was getting up frequently. To help the patient, she was brought up to the nurse's station and given some tasks to work on. She did not sleep very well last night and now is sleeping today. Review of Systems Review of Systems: ROS unobtainable: Yes unobtainable due to mental status Exam Narrative: General: thin, well-appearing 87-year-old female, sitting up in bed, comfortable, NARD Neuro: asleep HEENMT: normocephalic, atraumatic, EOMI, sclerae anicteric, small healing laceration noted on left scalp in parietal region Respiratory: clear to auscultation bilaterally, nonlabored breathing Cardio: regular rate, regular rhythm with S1-S2 Objective Data Vital Signs Vital Signs: Vital Signs - 24 hr 08/21/22 21:49 08/22/22 09:43 08/22/22 09:40 Temperature 98.3 F Pulse Rate 97 72 Respiratory Rate 16 Blood Pressu
[2022-08-22 21:11] VITALS: BP 194/70; PULSE 85; RESP 18; TEMP 36.6; O2SAT 95
[2022-08-22] MEDS: ONDANSETRON INJ 4 MG/2 ML VIAL IV PUSH (21:58)
[2022-08-22] MEDS: MEMANTINE HCL XR 7 MG CAP PO (21:59)
[2022-08-22] MEDS: LORATADINE 10 MG TABLET PO (21:59)
[2022-08-22] MEDS: CYANOCOBALAMIN 1,000 MCG TABLET 1000 MCG PO (22:00)
--- NOTE | 2022-08-23 00:47 | PC.NURSE ---
Spoke with Daughter, Taylor who is also patient's POA. Updating her on patient's status and that patient is finally sleeping after being awake for almost 36hours. Dtr states they are working on memory care acceptance this week. No further questions or concerns were noted at this time.
[2022-08-23 05:29] VITALS: BP 188/85; PULSE 74; RESP 18; TEMP 36.4; O2SAT 99
--- NOTE | 2022-08-23 06:23 | PC.NURSE ---
Patient slept throughout night. Voicing no complaints. VSS and patient showed no s/s of SOB or distress of any kind. Patient was calm, not tearful or no impulsive episodes during night. Patient easily arouses and then wants you to leave her alone so that she can sleep. Patient remains confused but continues to be cooperative with all cares.
[2022-08-23 09:00] VITALS: PULSE 66
[2022-08-23] MEDS: CEFDINIR 300 MG CAPSULE PO ×2 (09:00→21:52)
[2022-08-23] MEDS: lisinopriL 20 MG TABLET PO (09:00)
[2022-08-23] MEDS: busPIRone HCL 5 MG TABLET PO (09:00)
[2022-08-23] MEDS: SODIUM BICARBONATE TAB 650 MG TABLET PO ×2 (09:00→21:53)
[2022-08-23] MEDS: LABETALOL HCL 50 MG TABLET PO ×2 (09:00→21:51)
[2022-08-23] MEDS: CHOLECALCIFEROL 1,000 UNITS TABLET 1000 UNITS PO (09:00)
[2022-08-23] MEDS: CITALOPRAM HYDROBROMIDE 20 MG TABLET PO (09:00)
[2022-08-23] MEDS: ACETAMINOPHEN 325 MG TABLET 650 MG PO ×2 (09:00→21:50)
[2022-08-23] MEDS: ENOXAPARIN 30 MG/0.3 ML SYRINGE SUB-Q (09:02)
[2022-08-23 11:27] LABS: Hematocrit 35.2 % (37.0-47.0); Hemoglobin 10.9 g/dL (12.0-15.0); Mean Corpuscular Hemoglobin 30.4 pg (26-34); Mean Corpuscular Volume 98.1 fl (80-100); Mean Platelet Volume 10.8 fl (7.4-10.4); Platelet Count Result 204 k/mm3 (150-375); Red Blood Count 3.59 M/mm3 (4.2-5.4); Red Cell Distribution Width 13.4 % (11.5-14.5); White Blood Count 10.2 K/mm3 (4.5-10.0)
[2022-08-23 11:38] LABS: Anion Gap 6 mmol/L (8-16); Blood Urea Nitrogen 28 mg/dL (7-17); Calcium 8.5 mg/dL (8.4-10.2); Carbon Dioxide 22 mmol/L (22-30); Chloride 104 mmol/L (98-107); Estimated CRCL calculation 22 ml/min; Estimated Glomerular Filt Rate 31; Glucose 106 mg/dL (65-110); Potassium 4.4 mmol/L (3.4-5.0); Sodium 132 mmol/L (137-145)
[2022-08-23 14:29] VITALS: BP 138/63; PULSE 79; RESP 18; TEMP 36.8; O2SAT 96
--- NOTE | 2022-08-23 14:47 | PM.IMPN ---
Progress Note: A&P Assessment and Plan (1) Fall: Code(s): W19.XXXA - Unspecified fall, initial encounter Status: Acute Assessment and Plan: Patient suffered an unwitnessed ground level fall at home, presumed mechanical. appears the patient hit her head. I reviewed the patients head CT which showed no acute findings. Fall precautions implemented. Appreciate PT/ OT evals. Planning for SNF placement following discharge. Discussed with care coordination, she has been accepted to facility, awaiting bed availability (2) Acute UTI: Code(s): N39.0 - Urinary tract infection, site not specified Status: Acute Assessment and Plan: Urinalysis grossly abnormal. Patient not able to indicate symptoms. urine culture with growth of group B strep. Routine susceptibility is not performed as it is predictably susceptible to beta lactams. Continue oral cefdinir through 08/26/22. (3) Acute kidney injury superimposed on chronic kidney disease: Code(s): N17.9 - Acute kidney failure, unspecified; N18.9 - Chronic kidney disease, unspecified Status: Acute Assessment and Plan: Review of prior labs demonstrates baseline creatinine to be around 1.3-1.4. BMP on admission was reviewed and creatinine elevated up to 2.0. Suspect this to be prerenal secondary to dehydration and creatinine has improved following IV fluids. Renal ultrasound showed mildly increased renal echogenicity suggesting chronic medical renal disease with no evidence of hydronephrosis or acute findings. renal function is back to baseline. (4) Alzheimer's dementia with behavioral disturbance: Code(s): G30.9 - Alzheimer's disease, unspecified; F02.81 - Dementia in other diseases classified elsewhere, unspecified severity, with behavioral disturbance Status: Chronic Assessment and Plan: Patient with progressive dementia and worsening behavioral disturbances. Patient's POA no longer feels patient is able to be cared for in her home. Continue memantine. Patient is at risk for worsening confusion/hospital delirium during admission. Will make efforts to minimize disturbances and keep patient oriented. Planning for SNF on discharge with transition to memory care (5) Essential hypertension: Code(s): I10 - Essential (primary) hypertension Status: Acute Assessment and Plan: Blood pressures have been poorly controlled. Etiology for this is unclear, may be due to agitation/restlessness. Blood pressures are fluctuant. Lisinopril has been increased to 20 mg daily given in the morning now. Continue labetalol 50 mg BID. Given advanced age, caution to avoid overcorrection. Monitor BP trends closely. (6) Normocytic anemia: Code(s): D64.9 - Anemia, unspecified Status: Acute Assessment and Plan: Slight decline in hemoglobin to 8.8 yesterday. No evidence of active bleeding.? Iron panel reviewed and is within normal limits.? B12 and folate within normal limits.? H&H improved today. Subjective Date/time seen: 08/23/22 14:47 Interval history: Date of service: 08/23/2022 Jennifer Negrete is an 87-year-old female with a history of chronic kidney disease with secondary hyperparathyroidism, hypertension, breast cancer s/p bilateral mastectomy, dementia, osteoporosis?who is seen in follow-up for UTI. The patient is much more alert today. She states that she is feeling well. She is on able to provide any history due to her dementia. She could tell me her name. She knew she was at the hospital but could not recall the name. Not able to answer any additional orientation questions. Review of Systems Review of Systems: ROS unobtainable: Yes unobtainable due to mental status Exam Narrative: General:? thin, well-appearing 87-year-old female,? sitting up in bed, comfortable, NARD Neuro: awake, alert and oriented x2, speech clear, no focal neuro deficits noted HEENMT:? normocephalic,
[2022-08-23 21:51] VITALS: PULSE 74
[2022-08-23] MEDS: CYANOCOBALAMIN 1,000 MCG TABLET 1000 MCG PO (21:52)
[2022-08-23] MEDS: MEMANTINE HCL XR 7 MG CAP PO (21:53)
[2022-08-23] MEDS: LORATADINE 10 MG TABLET PO (21:54)
[2022-08-23 22:00] VITALS: BP 155/66; PULSE 79; RESP 17; TEMP 36.6; O2SAT 96
[2022-08-24 05:24] VITALS: BP 209/85; PULSE 87; RESP 18; TEMP 36.8; O2SAT 95
[2022-08-24 05:30] VITALS: BP 156/60
[2022-08-24 08:23] LABS: Hematocrit 31.9 % (37.0-47.0); Hemoglobin 10.3 g/dL (12.0-15.0); Mean Corpuscular HGB Conc 32.3 g/dl (32-36); Mean Corpuscular Hemoglobin 29.9 pg (26-34); Mean Corpuscular Volume 92.7 fl (80-100); Mean Platelet Volume 10.7 fl (7.4-10.4); Platelet Count Result 199 k/mm3 (150-375); Red Blood Count 3.44 M/mm3 (4.2-5.4); Red Cell Distribution Width 13.4 % (11.5-14.5)
[2022-08-24 08:33] LABS: Anion Gap 6 mmol/L (8-16); Blood Urea Nitrogen 29 mg/dL (7-17); Carbon Dioxide 26 mmol/L (22-30); Chloride 108 mmol/L (98-107); Estimated CRCL calculation 20 ml/min; Estimated Glomerular Filt Rate 29; Glucose 97 mg/dL (65-110); Potassium 4.2 mmol/L (3.4-5.0); Sodium 140 mmol/L (137-145)
[2022-08-24] MEDS: CEFDINIR 300 MG CAPSULE PO ×2 (09:17→20:40)
[2022-08-24 09:18] VITALS: PULSE 87
[2022-08-24] MEDS: busPIRone HCL 5 MG TABLET PO (09:18)
[2022-08-24] MEDS: CITALOPRAM HYDROBROMIDE 20 MG TABLET PO (09:18)
[2022-08-24] MEDS: SODIUM BICARBONATE TAB 650 MG TABLET PO ×2 (09:18→20:40)
[2022-08-24] MEDS: LABETALOL HCL 50 MG TABLET PO ×2 (09:18→20:40)
[2022-08-24] MEDS: lisinopriL 20 MG TABLET PO (09:18)
[2022-08-24] MEDS: ACETAMINOPHEN 325 MG TABLET 650 MG PO ×2 (09:18→20:40)
[2022-08-24] MEDS: ENOXAPARIN 30 MG/0.3 ML SYRINGE SUB-Q (09:18)
[2022-08-24 14:00] VITALS: BP 205/105; PULSE 90; RESP 19; TEMP 36.2; O2SAT 98
--- NOTE | 2022-08-24 15:46 | PM.IMPN ---
Progress Note: A&P Assessment and Plan (1) Fall: Code(s): W19.XXXA - Unspecified fall, initial encounter Status: Acute Assessment and Plan: Patient suffered an unwitnessed ground level fall at home, presumed mechanical. appears the patient hit her head. I reviewed the patients head CT which showed no acute findings. Fall precautions implemented. Appreciate PT/ OT evals. Initially planning for SNF following discharge, however patient has improved with therapy and now planning for assisted living. Awaiting bed availability. (2) Acute UTI: Code(s): N39.0 - Urinary tract infection, site not specified Status: Acute Assessment and Plan: Urinalysis grossly abnormal. Patient not able to indicate symptoms. urine culture with growth of group B strep. Routine susceptibility is not performed as it is predictably susceptible to beta lactams. Continue PO cefdinir (3) Acute kidney injury superimposed on chronic kidney disease: Code(s): N17.9 - Acute kidney failure, unspecified; N18.9 - Chronic kidney disease, unspecified Status: Acute Assessment and Plan: Review of prior labs demonstrates baseline creatinine to be around 1.3-1.4. BMP on admission was reviewed and creatinine elevated up to 2.0. Suspect this to be prerenal secondary to dehydration and creatinine has improved following IV fluids. Creatinine 1.7 today. Renal ultrasound showed mildly increased renal echogenicity suggesting chronic medical renal disease with no evidence of hydronephrosis or acute findings. (4) Alzheimer's dementia with behavioral disturbance: Code(s): G30.9 - Alzheimer's disease, unspecified; F02.81 - Dementia in other diseases classified elsewhere, unspecified severity, with behavioral disturbance Status: Chronic Assessment and Plan: Patient with progressive dementia and worsening behavioral disturbances. Patient's POA no longer feels patient is able to be cared for in her home. Continue memantine. Patient is at risk for worsening confusion/hospital delirium during admission. Will make efforts to minimize disturbances and keep patient oriented. Planning for assisted living following discharge (5) Essential hypertension: Code(s): I10 - Essential (primary) hypertension Status: Acute Assessment and Plan: Blood pressures continued to be elevated in the 200 systolic. This morning to 209/85. Lisinopril was increased to 20 mg daily. Continue home labetalol. Will add low-dose amlodipine 2.5 mg daily in the evening and hopefully this will keep blood pressure is better controlled throughout the entire day. Continue to monitor blood pressure trends closely. Caution not to over correct BP given advanced age (6) Normocytic anemia: Code(s): D64.9 - Anemia, unspecified Status: Acute Assessment and Plan: H&H remaining stable. No evidence of active bleeding. Iron panel reviewed and is within normal limits. B12 and folate within normal limits. Subjective Date/time seen: 08/24/22 15:46 Interval history: Date of service: 08/24/2022 Jennifer Negrete is an 87-year-old female with a history of chronic kidney disease with secondary hyperparathyroidism, hypertension, breast cancer s/p bilateral mastectomy, dementia, osteoporosis?who is seen in follow-up for UTI. Patient is awake and alert and is talking, however is not able to provide any reliable history due to her dementia. Discussed with nursing staff and care coordination, patient has been doing well with therapy. No issues at this time Review of Systems Review of Systems: ROS unobtainable: Yes unobtainable due to mental status Exam Narrative: General:? thin, well-appearing 87-year-old female,? sitting up in bed, comfortable, NARD Neuro: awake, alert and oriented x1, speech clear, no focal neuro deficits noted HEENMT:? normocephalic, atraumatic, EOMI, sclerae anicteric Respiratory: cl
[2022-08-24] MEDS: hydrALAZINE HCL 20 MG/ML VIAL 10 MG IV PUSH (17:10)
[2022-08-24 20:40] VITALS: PULSE 92
[2022-08-24] MEDS: LORATADINE 10 MG TABLET PO (20:40)
[2022-08-24] MEDS: amLODIPine BESYLATE 2.5 MG TABLET PO (20:40)
[2022-08-24] MEDS: CYANOCOBALAMIN 1,000 MCG TABLET 1000 MCG PO (20:40)
[2022-08-24] MEDS: MEMANTINE HCL XR 7 MG CAP PO (20:40)
[2022-08-24 22:00] VITALS: BP 186/91; PULSE 96; RESP 14; TEMP 36.4; O2SAT 97
[2022-08-25 06:32] LABS: Hematocrit 31.3 % (37.0-47.0); Hemoglobin 9.9 g/dL (12.0-15.0); Mean Corpuscular HGB Conc 31.6 g/dl (32-36); Mean Corpuscular Volume 94.8 fl (80-100); Mean Platelet Volume 11.1 fl (7.4-10.4); Platelet Count Result 202 k/mm3 (150-375); Red Cell Distribution Width 13.4 % (11.5-14.5); White Blood Count 10.2 K/mm3 (4.5-10.0)
[2022-08-25 06:46] LABS: Anion Gap 3 mmol/L (8-16); Blood Urea Nitrogen 25 mg/dL (7-17); Calcium 8.6 mg/dL (8.4-10.2); Carbon Dioxide 27 mmol/L (22-30); Chloride 105 mmol/L (98-107); Estimated CRCL calculation 25 ml/min; Estimated Glomerular Filt Rate 36; Glucose 97 mg/dL (65-110); Sodium 135 mmol/L (137-145)
--- NOTE | 2022-08-25 10:00 | PM.DS ---
DS: Admitting Diagnosis Discharge Date 08/25/22 1000 Admitting Diagnosis Fall, UTI dementia DS: Discharge Diagnosis Discharge Diagnosis (1) Fall: Code(s): W19.XXXA - Unspecified fall, initial encounter Status: Acute Assessment and Plan: Patient suffered an unwitnessed ground level fall at home, presumed mechanical. appears the patient hit her head. I reviewed the patients head CT which showed no acute findings. Fall precautions implemented. Appreciate PT/ OT evals. Initially planning for SNF following discharge, however patient has improved with therapy and now planning for assisted living. Awaiting bed availability. (2) Acute UTI: Code(s): N39.0 - Urinary tract infection, site not specified Status: Acute Assessment and Plan: Urinalysis grossly abnormal. Patient not able to indicate symptoms. urine culture with growth of group B strep. Routine susceptibility is not performed as it is predictably susceptible to beta lactams. Continue PO cefdinir (3) Acute kidney injury superimposed on chronic kidney disease: Code(s): N17.9 - Acute kidney failure, unspecified; N18.9 - Chronic kidney disease, unspecified Status: Acute Assessment and Plan: Review of prior labs demonstrates baseline creatinine to be around 1.3-1.4. BMP on admission was reviewed and creatinine elevated up to 2.0. Suspect this to be prerenal secondary to dehydration and creatinine has improved following IV fluids. Creatinine 1.7 today. Renal ultrasound showed mildly increased renal echogenicity suggesting chronic medical renal disease with no evidence of hydronephrosis or acute findings. (4) Alzheimer's dementia with behavioral disturbance: Code(s): G30.9 - Alzheimer's disease, unspecified; F02.81 - Dementia in other diseases classified elsewhere, unspecified severity, with behavioral disturbance Status: Chronic Assessment and Plan: Patient with progressive dementia and worsening behavioral disturbances. Patient's POA no longer feels patient is able to be cared for in her home. Continue memantine. Patient is at risk for worsening confusion/hospital delirium during admission. Will make efforts to minimize disturbances and keep patient oriented. Planning for assisted living following discharge (5) Essential hypertension: Code(s): I10 - Essential (primary) hypertension Status: Acute Assessment and Plan: Blood pressures continued to be elevated in the 200 systolic. This morning to 209/85. Lisinopril was increased to 20 mg daily. Continue home labetalol. Will add low-dose amlodipine 2.5 mg daily in the evening and hopefully this will keep blood pressure is better controlled throughout the entire day. Continue to monitor blood pressure trends closely. Caution not to over correct BP given advanced age (6) Normocytic anemia: Code(s): D64.9 - Anemia, unspecified Status: Acute Assessment and Plan: H&H remaining stable. No evidence of active bleeding. Iron panel reviewed and is within normal limits. B12 and folate within normal limits. DS: Summary Hospital Course Hospital Course: 87-year-old female with past medical history of chronic kidney disease, hyper parathyroidism, breast cancer, dementia, osteoporosis who presented the ED with complaints of fall. Patient was evidently in the bathroom and fell and hit her head on the toilet. Her family is trying to help her get up however she was not cooperative. Upon arrival it was noted that she did have an abnormal urinalysis with 2+ leukocyte esterase, greater than 75 WBCs. Patient was started on IV ceftriaxone. Urine culture did show groups B Streptococcus. Patient has been transition to p.o. cefdinir has been tolerating it well. Upon arrival patient was also noted to have an elevated creatinine of 2.0. Currently patient is in her baseline of 1.3-1.4, At 1.4 today. Renal ultrasound was pe
[2022-08-25] MEDS: CITALOPRAM HYDROBROMIDE 20 MG TABLET PO (11:23)
[2022-08-25] MEDS: ENOXAPARIN 30 MG/0.3 ML SYRINGE SUB-Q (11:23)
[2022-08-25] MEDS: ACETAMINOPHEN 325 MG TABLET 650 MG PO (11:23)
[2022-08-25] MEDS: CEFDINIR 300 MG CAPSULE PO (11:23)
[2022-08-25] MEDS: busPIRone HCL 5 MG TABLET PO (11:23)
[2022-08-25 11:24] VITALS: PULSE 89
[2022-08-25] MEDS: SODIUM BICARBONATE TAB 650 MG TABLET PO (11:24)
[2022-08-25] MEDS: LABETALOL HCL 50 MG TABLET PO (11:24)
[2022-08-25] MEDS: lisinopriL 20 MG TABLET PO (11:24)
== END 2022-08-25 18:45 ==
LOC: ANHED 08-19 00:23 → ANH3MEDSUR 08-19 04:46
PROVIDERS: Physician Assistant; Admitting Provider Internal Medicine; Emergency Provider Emergency Medicine; PCP Family Medicine; Visit Provider Internal Medicine
DX: S01.90XA Unspecified open wound of unspecified part of head, initial encounter (principal); W19.XXXA Unspecified fall, initial encounter; Y93.89 Activity, other specified; Y92.002 Bathroom of unspecified non-institutional (private) residence as the place of occurrence of the external cause; E87.1 Hypo-osmolality and hyponatremia; M81.0 Age-related osteoporosis without current pathological fracture; N39.0 Urinary tract infection, site not specified; Z20.822 Contact with and (suspected) exposure to COVID-19; B95.1 Streptococcus, group B, as the cause of diseases classified elsewhere; N17.9 Acute kidney failure, unspecified; I12.9 Hypertensive chronic kidney disease with stage 1 through stage 4 chronic kidney disease, or unspecified chronic kidney disease; N18.4 Chronic kidney disease, stage 4 (severe); I95.1 Orthostatic hypotension; G30.9 Alzheimer's disease, unspecified; F02.811 Dementia in other diseases classified elsewhere, unspecified severity, with agitation; M15.9 Polyosteoarthritis, unspecified; D64.9 Anemia, unspecified; R90.82 White matter disease, unspecified; N25.81 Secondary hyperparathyroidism of renal origin; Z81.8 Family history of other mental and behavioral disorders; Z82.49 Family history of ischemic heart disease and other diseases of the circulatory system; I45.10 Unspecified right bundle-branch block; R94.31 Abnormal electrocardiogram [ECG] [EKG]; Z90.13 Acquired absence of bilateral breasts and nipples; Z85.3 Personal history of malignant neoplasm of breast; Z79.1 Long term (current) use of non-steroidal anti-inflammatories (NSAID); Z79.899 Other long term (current) drug therapy
CPT/HCPCS: 36415; 70450; 76775; 80048; 80053; 81001; 82607; 82728; 82746; 83540; 83550; 85025; 85027; 87086; 87088; 87147; 87636; 93005; 96361; 96365; 96366; 96372; 96375; 96376; 97110; 97161; 97165; 97530; 99285; A9270; G0378; J0360; J0696; J1650; J2405; J7030

== ENCOUNTER 2022-10-11 11:30 | Emergency (ER) | payer MEDICARE, SELFPAY ==
[2022-10-11] VITALS (33 sets, daily range): BP systolic 138–191; BP diastolic 56–119; PULSE 58–77; RESP 12–20; TEMP 36.3; O2SAT 77–100
--- NOTE | ~2022-10-11 | CT_ITS ---
EXAMINATION: CT brain wo con DATE: 10/11/2022 12:09 INDICATION: Altered mental status. Unresponsive. TECHNIQUE: Computed tomography (CT) of the head was performed without intravenous contrast. The mA wa s adjusted according to patient size. Iterative reconstruction technique was employed. The dose-lengt h product was 529.67 mGy-cm. COMPARISON: Head CT 08/19/2022 FINDINGS: There are scattered areas of low attenuation in the cerebral white matter. There is no intr acranial hemorrhage, acute infarction, or abnormal intracranial mass lesion. The ventricles are ramon l in size. There are likely changes of ocular lens replacement surgeries. There is mild mucosal thick ening in the ethmoid sinuses. There are trace bilateral mastoid effusions. IMPRESSION: 1. Stable extensive nonspecific cerebral white matter disease, which likely represents chronic small vessel ischemic disease. Reviewed, dictated and finalized at location A. IMPRESSION: 1. Stable extensive nonspecific cerebral white matter disease, which likely rep resents chronic small vessel ischemic disease.
--- NOTE | ~2022-10-11 | XR_ITS ---
EXAMINATION: XR chest 1V portable DATE: 10/11/2022 12:39 INDICATION: Altered mental status. TECHNIQUE: A single frontal view of the chest was obtained. COMPARISON: Chest 2 views 05/22/2020 FINDINGS: There is no pneumonia, pleural effusion, or pneumothorax. Cardiomegaly is noted. There is a right shoulder arthroplasty. There are surgical clips in left axilla. IMPRESSION: 1. Cardiomegaly. Reviewed, dictated and finalized at location A. IMPRESSION: 1. Cardiomegaly.
--- NOTE | 2022-10-11 11:38 | ECG_ITS ---
Measurements Intervals [place] Rate: 58 P: 59 AR: 153 QRS: 35 QRSD: 87 T: 62 QT: 441 QTc: 436 Interpretive Statements SINUS BRADYCARDIA VOLTAGE CRITERIA FOR LVH BASELINE WANDER- V1 BORDERLINE ECG COMPARED TO ECG 08/19/2022 00:07:36 SINUS BRADYCARDIA NOW PRESENT Electronically Signed On 10-11-2022 12:56:35 CDT by Sascha Newman D.O.
--- NOTE | 2022-10-11 12:28 | ED.AMS ---
HPI - Altered Mental Status General Chief Complaint: Altered Mental Status Stated Complaint: ams Time Seen by Provider: 10/11/22 12:01 History of Present Illness HPI narrative: Patient is an 87-year-old female with a history of dementia, hypertension, hyperlipidemia presenting with an episode of altered mental status. Patient is ANO x1 at baseline. She resides at a nursing facility. Today she had an episode where she was only responding to questions by nodding. This was felt to be abnormal for her so EMS was called. On arrival, the patient is alert and oriented x2. She knows her name and where she is. She states that she feels completely fine. Denies any pain. No shortness of breath. No nausea. No numbness or weakness. Daughter states she received a call from the facility stating that they had difficulty awakening her this morning. Related Data Home Medications Medication Instructions Recorded Confirmed labetalol 100 mg tablet 50 mg PO BID 08/12/20 08/19/22 sodium bicarbonate 650 mg tablet 650 mg PO BID 09/29/21 08/19/22 acetaminophen 650 mg 650 mg PO Q12H 08/19/22 08/19/22 tablet,extended release cetirizine 10 mg tablet 10 mg PO DAILY 08/19/22 08/19/22 citalopram 20 mg tablet (Celexa) 20 mg PO DAILY 08/19/22 08/19/22 Allergies Allergy/AdvReac Type Severity Reaction Status Date / Time NSAIDS (Non-Steroidal AdvReac Severe contraindicated. Verified 10/11/22 11:36 Anti-Inflamma CKD 4 Review of Systems Review of Systems: All systems reviewed & are unremarkable except as noted in HPI and below PMFSH Past Medical History Medical History Acute hyponatremia Age-related osteoporosis without current pathological fracture Chronic renal insufficiency Dementia Essential hypertension Fracture of left clavicle HX: breast cancer Hypertensive kidney disease, stage IV Orthostatic hypotension Postmenopausal 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 (of renal origin) (05/03/19) Surgical History Surgical History H/O bilateral mastectomy History of left hip replacement History of shoulder replacement Family History Family History Father Family history of suicide Family history of mental disorder Depression Mother Family history of malignant neoplasm of breast in first degree relative Sibling Family history of obesity Family history of mental disorder Depression Hypertension Family history of cardiovascular disease Family history of Alzheimer's disease Other Family history of malignant neoplasm Social History Social History Smoking status: Never smoker Alcohol intake: never Substance use: never Substance use type: does not use Additional living arrangements comments: lives at home with Gender identity (if verbalized by the patient): Female Spiritual care concerns: No Exam Narrative: GENERAL: Elderly female laying in bed in no acute distress, pleasant and cooperative HEAD: Normocephalic, atraumatic. EYES: PERRLA and EOMI. ENT: Nares clear, no rhinorrhea or epistaxis. Mucous membranes moist. NECK: Supple. CHEST: Clear to auscultation. No respiratory distress. HEART: Regular rate and rhythm. Normal peripheral pulses. ABDOMEN: Soft, nontender, nondistended EXTREMITIES: Normal range of motion. No edema. SKIN: Warm, dry, no rash. NEURO: No focal deficits. Alert and oriented x2. Knows her name and where she is, she is unsure and year. 5 out of 5 strength in all extremities PSYCH: Normal mood and affect. Course Vital Signs Vital signs: Vital Signs Temperature 97.4 F L 10/11/22 11:31 Pulse Rate 67 10/11/22 11:31 Respiratory Rate 12 10/11/22 11:31 Blood Pressure 191/76 H 10/11/22 11:31 Pulse Oxi
[2022-10-11 12:43] LABS: Appearance Urine Clear (Clear); Bacteria Urine None Seen /hpf; Bilirubin Urine Negative (Negative); Blood Urine 1+ (Negative); Color Urine Yellow (Yellow); Glucose Urine UA Negative (Negative); Ketones Urine Negative (Negative); Leukocyte Esterase Ur Trace LEU/UL (Negative); Need Manual Microscopic Reviewed; Nitrate Urine Negative (Negative); Protein Urine 2+ mg/dL (Negative); Specific Grav Ur 1.019 (1.001-1.035); Squamous Epithelial Cell Urine Few /hpf (Few); pH Urine 6.5 (5.0-9.0)
[2022-10-11 12:51] LABS: Add Urine Microscopic? YES
[2022-10-11 13:08] LABS: Basophils Percent Auto 0.4 % (0.2-1.2); Eosinophils Absolute Auto 0.1 K/mm3 (0-0.3); Eosinophils Percent Auto 1.3 % (0-4.4); Hematocrit 32.8 % (37.0-47.0); Hemoglobin 10.3 g/dL (12.0-15.0); Immature Granulocyte Absolute 0.02 K/mm3 (0.00-0.031); Immature Granulocyte Percent A 0.3 % (0-0.5); Lymphocytes Absolute Auto 1.04 K/mm3 (0.9-3.2); Lymphocytes Percent Auto 13.4 % (18.3-44.2); Mean Corpuscular HGB Conc 31.4 g/dl (32-36); Mean Corpuscular Hemoglobin 29.6 pg (26-34); Mean Corpuscular Volume 94.3 fl (80-100); Mean Platelet Volume 10.6 fl (7.4-10.4); Monocytes Absolute Auto 0.6 K/mm3 (0.1-0.6); Monocytes Percent Auto 7.7 % (2.6-8.5); Neutrophils Percent Auto 76.9 % (45.5-73.1); Platelet Count Result 218 k/mm3 (150-375); Red Blood Count 3.48 M/mm3 (4.2-5.4); Red Cell Distribution Width 13.8 % (11.5-14.5); White Blood Count 7.8 K/mm3 (4.5-10.0)
[2022-10-11 13:20] LABS: Alanine Aminotransferase 16 U/L (6-35); Albumin Level 3.8 g/dL (3.5-5.1); Alkaline Phosphatase 121 U/L (38-126); Anion Gap 4 mmol/L (8-16); Aspartate Amino Transferase 22 U/L (14-36); Bilirubin,Total 0.4 mg/dL (0.2-1.3); Blood Urea Nitrogen 33 mg/dL (7-17); Calcium 8.8 mg/dL (8.4-10.2); Carbon Dioxide 26 mmol/L (22-30); Chloride 107 mmol/L (98-107); Estimated CRCL calculation 20 ml/min; Estimated Glomerular Filt Rate 29; Glucose 87 mg/dL (65-110); Potassium 4.7 mmol/L (3.4-5.0); Sodium 137 mmol/L (137-145)
[2022-10-11 13:21] LABS: Prothrombin Time 12.8 Seconds (11.1-14.7)
[2022-10-11 13:22] LABS: Partial Thromboplastin Time 25.8 SECONDS (22.3-36.8)
[2022-10-11] MEDS: SODIUM CHLORIDE 0.9% IV 1,000 ML 999 ML IV CONT (14:15)
== END 2022-10-11 16:30 ==
PROVIDERS: Emergency Medicine; Emergency Provider Emergency Medicine
DX: N39.0 Urinary tract infection, site not specified (principal); E86.0 Dehydration; F03.90 Unspecified dementia, unspecified severity, without behavioral disturbance, psychotic disturbance, mood disturbance, and anxiety; E78.5 Hyperlipidemia, unspecified; I12.9 Hypertensive chronic kidney disease with stage 1 through stage 4 chronic kidney disease, or unspecified chronic kidney disease; N18.4 Chronic kidney disease, stage 4 (severe); N25.81 Secondary hyperparathyroidism of renal origin; M85.80 Other specified disorders of bone density and structure, unspecified site; M19.90 Unspecified osteoarthritis, unspecified site; Z96.642 Presence of left artificial hip joint; Z96.619 Presence of unspecified artificial shoulder joint; Z85.3 Personal history of malignant neoplasm of breast; Z90.13 Acquired absence of bilateral breasts and nipples
CPT/HCPCS: 36415; 70450; 71045; 80053; 81001; 85025; 85610; 85730; 87086; 93005; 96361; 96365; 99284; J0696; J7030

== ENCOUNTER 2022-11-06 09:25 | Emergency (ER) | payer MEDICARE, SELFPAY ==
--- NOTE | ~2022-11-06 | CT_ITS ---
EXAMINATION: CT brain wo con DATE: 11/06/2022 11:53 INDICATION: Transient alteration of awareness TECHNIQUE: Computed tomography (CT) of the head was performed without intravenous contrast. The mA wa s adjusted according to patient size. Iterative reconstruction technique was employed. Exam dose: 52 9.67 mGy-cm total exam DLP. COMPARISON: 10/11/2022 CT brain FINDINGS: Prominent bilateral carotid siphon internal carotid artery calcifications. There is nonspec ific diminished attenuation of the cerebral white matter, likely due to chronic small vessel ischemic changes. There is moderate central and cortical cerebral and cerebellar atrophy. No intracranial mass lesion or hemorrhage, midline shift or mass effect or subdural or epidural hemat maximilian is detected. The orbital contents are unremarkable. No fracture or bone destruction of the cranial vault. The mastoid air cells and included paranasal sinuses are normally developed and aerated. IMPRESSION: Cerebral atherosclerosis and chronic small vessel ischemic changes of the cerebral white matter Moderate cerebral and cerebellar atrophy No acute intracranial finding or significant change since 10/11/2022 Reviewed, dictated and finalized at [facility]. Reviewed, dictated and finalized at location [facility].
[2022-11-06 09:31] VITALS: BP 187/70; PULSE 72; RESP 16; TEMP 36.8; O2SAT 98
--- NOTE | 2022-11-06 09:36 | ECG_ITS ---
Measurements Intervals [place] Rate: 72 P: 56 IN: 149 QRS: 57 QRSD: 125 T: 23 QT: 419 QTc: 462 Interpretive Statements SINUS RHYTHM RIGHT BUNDLE BRANCH BLOCK ABNORMAL ECG COMPARED TO ECG 10/11/2022 11:46:09 RIGHT BUNDLE-BRANCH BLOCK NOW PRESENT Electronically Signed On 11-06-2022 15:30:57 CDT by Victorino Cox M.D.
[2022-11-06 09:39] VITALS: RESP 16; O2SAT 98
[2022-11-06 09:47] VITALS: BP 163/65; PULSE 70; RESP 15
[2022-11-06 09:59] LABS: Basophils Percent Auto 0.3 % (0.2-1.2); Eosinophils Absolute Auto 0.1 K/mm3 (0-0.3); Eosinophils Percent Auto 1.9 % (0-4.4); Hematocrit 34.7 % (37.0-47.0); Hemoglobin 10.7 g/dL (12.0-15.0); Immature Granulocyte Absolute 0.01 K/mm3 (0.00-0.031); Immature Granulocyte Percent A 0.2 % (0-0.5); Lymphocytes Absolute Auto 1.11 K/mm3 (0.9-3.2); Mean Corpuscular HGB Conc 30.8 g/dl (32-36); Mean Corpuscular Hemoglobin 29.6 pg (26-34); Mean Corpuscular Volume 95.9 fl (80-100); Mean Platelet Volume 10.7 fl (7.4-10.4); Monocytes Absolute Auto 0.6 K/mm3 (0.1-0.6); Monocytes Percent Auto 10.8 % (2.6-8.5); Neutrophils Percent Auto 67.8 % (45.5-73.1); Platelet Count Result 201 k/mm3 (150-375); Red Blood Count 3.62 M/mm3 (4.2-5.4); Red Cell Distribution Width 13.9 % (11.5-14.5); White Blood Count 5.8 K/mm3 (4.5-10.0)
[2022-11-06 10:10] LABS: Alanine Aminotransferase 18 U/L (6-35); Alkaline Phosphatase 109 U/L (38-126); Anion Gap 4 mmol/L (8-16); Aspartate Amino Transferase 23 U/L (14-36); Bilirubin,Total 0.5 mg/dL (0.2-1.3); Blood Urea Nitrogen 30 mg/dL (7-17); Calcium 9.1 mg/dL (8.4-10.2); Carbon Dioxide 29 mmol/L (22-30); Chloride 106 mmol/L (98-107); Estimated CRCL calculation 22 ml/min; Estimated Glomerular Filt Rate 33; Glucose 75 mg/dL (65-110); Potassium 4.6 mmol/L (3.4-5.0); Sodium 139 mmol/L (137-145)
[2022-11-06 10:15] LABS: Appearance Urine Clear (Clear); Bacteria Urine None Seen /hpf; Bilirubin Urine Negative (Negative); Color Urine Yellow (Yellow); Glucose Urine UA Negative (Negative); Ketones Urine Negative (Negative); Leukocyte Esterase Ur Negative LEU/UL (Negative); Need Manual Microscopic Reviewed; Nitrate Urine Negative (Negative); Non Pathogenic Casts 0-2; Protein Urine 1+ mg/dL (Negative); Specific Grav Ur 1.014 (1.001-1.035); Squamous Epithelial Cell Urine None seen /hpf (Few); WBC Urine 0-5 /hpf
[2022-11-06 10:18] LABS: Add Urine Microscopic? YES
[2022-11-06 10:20] LABS: Prothrombin Time 13.1 Seconds (11.1-14.7)
[2022-11-06 10:21] LABS: Partial Thromboplastin Time 25.6 SECONDS (22.3-36.8)
[2022-11-06 11:32] VITALS: BP 151/69; PULSE 68; RESP 16; O2SAT 100
--- NOTE | 2022-11-06 11:43 | ED.AMS ---
HPI - Altered Mental Status General Chief Complaint: Altered Mental Status Stated Complaint: AMS Time Seen by Provider: 11/06/22 10:15 History of Present Illness HPI narrative: 87-year-old female presenting to the emergency department from [facility] for evaluation of decreased LOC. They felt that the patient was not as responsive as she normally is at her baseline. Upon arrival to the emergency department patient is very alert and appropriate. Patient is confused as to location but patient is very conversive. Patient denies any complaints at this time. Related Data Home Medications Medication Instructions Recorded Confirmed labetalol 100 mg tablet 50 mg PO BID 08/12/20 08/19/22 sodium bicarbonate 650 mg tablet 650 mg PO BID 09/29/21 08/19/22 acetaminophen 650 mg 650 mg PO Q12H 08/19/22 08/19/22 tablet,extended release cetirizine 10 mg tablet 10 mg PO DAILY 08/19/22 08/19/22 citalopram 20 mg tablet (Celexa) 20 mg PO DAILY 08/19/22 08/19/22 Allergies Allergy/AdvReac Type Severity Reaction Status Date / Time NSAIDS (Non-Steroidal AdvReac Severe contraindicated. Verified 11/06/22 09:40 Anti-Inflamma CKD 4 Review of Systems Review of Systems: All systems reviewed & are unremarkable except as noted in HPI and below PMFSH Past Medical History Medical History Acute hyponatremia Age-related osteoporosis without current pathological fracture Chronic renal insufficiency Dementia Essential hypertension Fracture of left clavicle HX: breast cancer Hypertensive kidney disease, stage IV Orthostatic hypotension Postmenopausal 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 (of renal origin) (05/03/19) Surgical History Surgical History H/O bilateral mastectomy History of left hip replacement History of shoulder replacement Family History Family History Father Family history of suicide Family history of mental disorder Depression Mother Family history of malignant neoplasm of breast in first degree relative Sibling Family history of obesity Family history of mental disorder Depression Hypertension Family history of cardiovascular disease Family history of Alzheimer's disease Other Family history of malignant neoplasm Social History Social History Smoking status: Never smoker Alcohol intake: never Substance use: never Substance use type: does not use Additional living arrangements comments: lives at home with Gender identity (if verbalized by the patient): Female Spiritual care concerns: No Exam Narrative: APPEARANCE: Well appearing, no pain, no distress, well-nourished. HEAD: normocephalic, atraumatic. EYES: PERRLA/EOMI, conjunctivae clear. NOSE: Normal no drainage NECK: Supple. No adenopathy, no masses. RESPIRATORY: Airway patent, respirations nonlabored. Clear to auscultation bilaterally, no rales, rhonchi, wheezing. CARDIOVASCULAR: Regular rate and rhythm without murmurs rubs or gallops. ABDOMINAL: Soft, nontender, nondistended, normal bowel sounds MUSCULOSKELETAL: Moves all extremities. Strength/ROM intact, No edema, No calf tenderness. NEURO: Alert. Cranial nerves II through XII intact. Grossly intact SKIN: Warm, dry. Normal Color Course Course Emergency Course: 87-year-old female that was found to be having decreased responsive this morning at her memory care unit and is now alert and very interactive in the ED. On examination patient continues to deny any complaints. Patient is normotensive and is afebrile. Patient has no leukocytosis. Patient's hemoglobin is similar to her baseline. Patient's CMP is also similar to her baseline. UA shows no significant evidence of infection. Patient is is
--- NOTE | 2022-11-06 12:51 | PC.NURSE ---
Mark Carpenter [facility] return to [facility] ETA 30min Trip #[id number]
== END 2022-11-06 12:51 ==
PROVIDERS: Emergency Provider Emergency Medicine
DX: R41.82 Altered mental status, unspecified (principal); F03.90 Unspecified dementia, unspecified severity, without behavioral disturbance, psychotic disturbance, mood disturbance, and anxiety; I12.9 Hypertensive chronic kidney disease with stage 1 through stage 4 chronic kidney disease, or unspecified chronic kidney disease; N18.4 Chronic kidney disease, stage 4 (severe); M81.0 Age-related osteoporosis without current pathological fracture; M15.9 Polyosteoarthritis, unspecified; N25.81 Secondary hyperparathyroidism of renal origin; Z85.3 Personal history of malignant neoplasm of breast
CPT/HCPCS: 36415; 70450; 80053; 81001; 85025; 85610; 85730; 93005; 99284

== ENCOUNTER 2022-11-29 12:24 | Emergency (ER) | payer MEDICARE, SELFPAY ==
--- NOTE | ~2022-11-29 | XR_ITS ---
Clinical Indication: Weakness PA and lateral views of the chest: Comparison: 10/11/2022 Findings: The lungs are clear, without evidence of focal consolidation or pleural effusion. Probable COPD pattern present. Cardiomediastinal silhouette is within normal limits. Right shoulder arthroplas ty noted. Impression: Clear lungs. Suspected COPD. Reviewed, dictated and finalized at location . Impression: Clear lungs. Suspected COPD.
--- NOTE | ~2022-11-29 | CT_ITS ---
EXAMINATION: CT brain wo con DATE: 11/29/2022 15:43 INDICATION: unresponsiveness . TECHNIQUE: Computed tomography (CT) of the head was performed without intravenous contrast. The mA wa s adjusted according to patient size. Iterative reconstruction technique was employed. The dose-lengt h product was 605.33 mGy-cm. COMPARISON: 11/06/2022. FINDINGS: No acute intracranial hemorrhage or extra-axial fluid collection. No hydrocephalus, mass, or herniation. No acute ischemic infarct. Unremarkable dural venous sinus attenuation. No acute osseous abnormality. Small volume right mastoid fluid, unchanged, the remaining aerated spaces are clear. Moderate atrophy and chronic white matter change. Atherosclerotic intracranial calcification. Bilater al lens replacements. IMPRESSION: No acute intracranial process. Reviewed, dictated and finalized at location [facility].
[2022-11-29 12:27] VITALS: BP 197/74; PULSE 63; RESP 19; TEMP 36.9; O2SAT 98
--- NOTE | 2022-11-29 12:45 | ECG_ITS ---
Measurements Intervals [place] Rate: 60 P: 61 VA: 153 QRS: 67 QRSD: 130 T: 43 QT: 442 QTc: 443 Interpretive Statements SINUS RHYTHM RIGHT BUNDLE BRANCH BLOCK BASELINE ARTIFACT- II, III, AVL, AVF BORDERLINE ECG COMPARED TO ECG 11/06/2022 09:32:31 NO SIGNIFICANT CHANGES Electronically Signed On 11-29-2022 13:09:30 CDT by Sascha Newman D.O.
[2022-11-29 12:58] LABS: Basophils Percent Auto 0.4 % (0.2-1.2); Eosinophils Absolute Auto 0.1 K/mm3 (0-0.3); Eosinophils Percent Auto 1.5 % (0-4.4); Hematocrit 34.4 % (37.0-47.0); Hemoglobin 10.6 g/dL (12.0-15.0); Immature Granulocyte Absolute 0.03 K/mm3 (0.00-0.031); Immature Granulocyte Percent A 0.4 % (0-0.5); Lymphocytes Absolute Auto 1.46 K/mm3 (0.9-3.2); Lymphocytes Percent Auto 17.9 % (18.3-44.2); Mean Corpuscular HGB Conc 30.8 g/dl (32-36); Mean Corpuscular Hemoglobin 29.5 pg (26-34); Mean Corpuscular Volume 95.8 fl (80-100); Mean Platelet Volume 10.5 fl (7.4-10.4); Monocytes Absolute Auto 0.7 K/mm3 (0.1-0.6); Monocytes Percent Auto 8.3 % (2.6-8.5); Neutrophils Absolute Auto 5.8 K/mm3 (1.3-6.7); Neutrophils Percent Auto 71.5 % (45.5-73.1); Platelet Count Result 220 k/mm3 (150-375); Red Blood Count 3.59 M/mm3 (4.2-5.4); Red Cell Distribution Width 14.1 % (11.5-14.5); White Blood Count 8.2 K/mm3 (4.5-10.0)
--- NOTE | 2022-11-29 12:59 | ED.WEAKNESS ---
HPI - Weakness General Chief complaint: Weakness Stated complaint: weakness Time Seen by Provider: 11/29/22 12:37 Source: patient, EMS and RN notes reviewed Mode of arrival: EMS Limitations: dementia History of Present Illness HPI Narrative: This is an 87 year old female with history of dementia who presents for [facility] for evaluation of weakness for 1 week. Patient is not aware of her location or why she is in ER. Nursing staff reports that EMS reports that patient does this. She all of sudden doesn't want to do any thing so staff calls 911, and on their arrival patient is doing fine. PAtient does not complain of pain, nausea, vomiting or difficulty breathing Related Data Home Medications Medication Instructions Recorded Confirmed labetalol 100 mg tablet 50 mg PO BID 08/12/20 08/19/22 sodium bicarbonate 650 mg tablet 650 mg PO BID 09/29/21 08/19/22 acetaminophen 650 mg 650 mg PO Q12H 08/19/22 08/19/22 tablet,extended release cetirizine 10 mg tablet 10 mg PO DAILY 08/19/22 08/19/22 citalopram 20 mg tablet (Celexa) 20 mg PO DAILY 08/19/22 08/19/22 Allergies Allergy/AdvReac Type Severity Reaction Status Date / Time NSAIDS (Non-Steroidal AdvReac Severe contraindicated. Verified 11/06/22 09:40 Anti-Inflamma CKD 4 Review of Systems Review of Systems: ROS unobtainable: Yes other (dementia) [facility] Past Medical History Medical History Acute hyponatremia Age-related osteoporosis without current pathological fracture Chronic renal insufficiency Dementia Essential hypertension Fracture of left clavicle HX: breast cancer Hypertensive kidney disease, stage IV Orthostatic hypotension Postmenopausal 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 (of renal origin) (05/03/19) Surgical History Surgical History H/O bilateral mastectomy History of left hip replacement History of shoulder replacement Family History Family History Father Family history of suicide Family history of mental disorder Depression Mother Family history of malignant neoplasm of breast in first degree relative Sibling Family history of obesity Family history of mental disorder Depression Hypertension Family history of cardiovascular disease Family history of Alzheimer's disease Other Family history of malignant neoplasm Social History Social History Smoking status: Never smoker Alcohol intake: never Substance use: never Substance use type: does not use Additional living arrangements comments: lives at home with Gender identity (if verbalized by the patient): Female Spiritual care concerns: No Exam Narrative: GENERAL: Well-appearing, well-nourished, and in no acute distress. HEAD: Normocephalic, atraumatic EYES: PERRLA and EOMI, conjunctiva clear without discharge EARS: TM's clear bilaterally without erythema or dullness NOSE: Nares clear, no rhinorrhea or epistaxis THROAT:Mucous membranes moist, Oropharynx normal without erythema, exudate, peritonsillar swelling or fluctuance NECK: Supple, without lymphadenopathy or mass RESPIRATORY: No respiratory distress, Airway patent, Respirations non-labored, Clear to auscultation without rales, rhonchi or wheeze HEART: Regular rate and rhythm. No murmur heard. Normal peripheral pulses. ABDOMEN: Soft, nontender, nondistended, normal active bowel sounds. No masses. No rebound or guarding, No organomegaly. EXTREMITIES: No edema, normal strength with full range of motion. SKIN: Warm, dry, normal color without rash NEURO: Alert and oriented to person CN 2-12 grossly intact. No focal deficits. PSYCH: Normal mood and affect. Course Reevaluation(s) Reevaluation #1: I discussed with patient's daugh
[2022-11-29 13:08] LABS: Alanine Aminotransferase 17 U/L (6-35); Albumin Level 4.1 g/dL (3.5-5.1); Alkaline Phosphatase 104 U/L (38-126); Anion Gap 6 mmol/L (8-16); Aspartate Amino Transferase 21 U/L (14-36); Bilirubin,Total 0.5 mg/dL (0.2-1.3); Blood Urea Nitrogen 33 mg/dL (7-17); Calcium 9.3 mg/dL (8.4-10.2); Carbon Dioxide 27 mmol/L (22-30); Chloride 106 mmol/L (98-107); Estimated CRCL calculation 21 ml/min; Estimated Glomerular Filt Rate 33; Glucose 94 mg/dL (65-110); Potassium 4.6 mmol/L (3.4-5.0); Sodium 139 mmol/L (137-145)
[2022-11-29 13:26] LABS: Appearance Urine Cloudy (Clear); Bacteria Urine 4+ /hpf; Bilirubin Urine Negative (Negative); Color Urine Yellow (Yellow); Glucose Urine UA Negative (Negative); Ketones Urine Negative (Negative); Leukocyte Esterase Ur Trace LEU/UL (Negative); Need Manual Microscopic Reviewed; Nitrate Urine Negative (Negative); Non Pathogenic Casts 0-2; Protein Urine 2+ mg/dL (Negative); RBC Urine 0-2 /hpf (0-2); Squamous Epithelial Cell Urine None seen /hpf (Few); Urobilinogen Urine 0.2 mg/dL (<2.0)
[2022-11-29 13:34] LABS: Add Urine Microscopic? YES
[2022-11-29 13:35] LABS: SARS-CoV-2 RNA PCR Negative (Negative)
[2022-11-29 14:32] VITALS: BP 189/67; RESP 20; O2SAT 100
--- NOTE | 2022-11-29 14:38 | PC.NURSE ---
spoke with lucita at [facility] in regards to patient. nurse states patient told the aide that she wasn't feeling well this morning and then she went unresponsive. at that time, patient was sent to be evaluated. patient alert and speaking since arrival to ED. provider speaking with NH at this time
[2022-11-29 15:16] LABS: Troponin I < 0.012 ng/mL (0.000-0.034)
[2022-11-29 16:30] VITALS: PULSE 76
[2022-11-29] MEDS: LABETALOL HCL 50 MG TABLET PO (16:30)
[2022-11-29] MEDS: CEPHALEXIN 500 MG CAPSULE PO (16:30)
[2022-11-29 16:32] VITALS: BP 198/83; PULSE 73; RESP 18; O2SAT 100
--- NOTE | 2022-11-29 16:51 | PC.NURSE ---
provider speaking with meghan, emergency contact in regards to patient and plan of care
--- NOTE | 2022-11-29 17:09 | PC.NURSE ---
called meghan, daughter, she is unable to [facility] patient. called for transport back to facility, ETA [id number]. Report given to NH
[2022-11-29 17:13] VITALS: BP 175/64; PULSE 68; RESP 20
== END 2022-11-29 22:18 ==
PROVIDERS: Emergency Provider General Practice; PCP Family Medicine
DX: N39.0 Urinary tract infection, site not specified (principal); F03.90 Unspecified dementia, unspecified severity, without behavioral disturbance, psychotic disturbance, mood disturbance, and anxiety; Z20.822 Contact with and (suspected) exposure to COVID-19; I12.9 Hypertensive chronic kidney disease with stage 1 through stage 4 chronic kidney disease, or unspecified chronic kidney disease; N18.4 Chronic kidney disease, stage 4 (severe); N25.81 Secondary hyperparathyroidism of renal origin; M81.0 Age-related osteoporosis without current pathological fracture; M19.90 Unspecified osteoarthritis, unspecified site; Z85.3 Personal history of malignant neoplasm of breast; Z90.13 Acquired absence of bilateral breasts and nipples; Z96.642 Presence of left artificial hip joint; Z96.619 Presence of unspecified artificial shoulder joint; I45.10 Unspecified right bundle-branch block; R91.8 Other nonspecific abnormal finding of lung field
CPT/HCPCS: 36415; 70450; 71046; 80053; 81001; 84484; 85025; 87086; 93005; 99284; A9270; U0003; U0005

== ENCOUNTER 2023-01-17 13:29 | Emergency (ER) | payer MEDICARE, SELFPAY ==
--- NOTE | ~2023-01-17 | CT_ITS ---
EXAMINATION: CT brain wo con DATE: 01/17/2023 14:32 INDICATION: head injury . TECHNIQUE: Computed tomography (CT) of the head was performed without intravenous contrast. The mA wa s adjusted according to patient size. Iterative reconstruction technique was employed. The dose-lengt h product was 605.33 mGy-cm. COMPARISON: None. FINDINGS: No acute intracranial hemorrhage or extra-axial fluid collection. No hydrocephalus, mass, or herniation. No acute ischemic infarct. Unremarkable dural venous sinus attenuation. No acute osseous abnormality. The aerated spaces are clear. Moderate atrophy and chronic white matter change. Atherosclerotic intracranial calcification. Bilater al lens replacements. IMPRESSION: No acute intracranial process. Reviewed, dictated and finalized at location [facility].
--- NOTE | ~2023-01-17 | CT_ITS ---
EXAMINATION: CT facial & cervical spine wo DATE: 01/17/2023 14:33 INDICATION: trauma TECHNIQUE: Computed tomography (CT) of the maxillofacial region and cervical spine was performed with out intravenous contrast. Automated exposure control and iterative reconstruction technique were empl oyed. The dose-length product was 156.76 mGy-cm. COMPARISON: None FINDINGS: CERVICAL: Vertebral Body Alignment: Intact. Craniocervical and atlantoaxial alignment: Moderate degenerative change. Alignment intact. Osseous structures/fracture: No evidence of a lytic or blastic process in the visualized spine. No e vidence of acute fracture. Cervical soft tissues: The paraspinal soft tissues planes are maintained. Degenerative changes: Degenerative changes, without severe neural foraminal or central canal narrowin g. FACE: Soft Tissues: No significant superficial soft tissue swelling. Facial bones: No acute fracture. No lytic or blastic process. Eyes: The globes are intact. The soft tissue planes of the orbits are maintained. Bilateral lens re placements. Paranasal Sinuses: The visualized aerated spaces are clear. Foreign Bodies: No radiopaque foreign bodies. Other Findings: None. IMPRESSION: No acute fracture or traumatic malalignment in the cervical spine. No acute facial bone fracture. Reviewed, dictated and finalized at location [facility]. IMPRESSION: No acute fracture or traumatic malalignment in the cervical spine. No acute fac ial bone fracture.
[2023-01-17 13:29] VITALS: BP 140/59; PULSE 75; RESP 17; TEMP 36.5; O2SAT 97
--- NOTE | 2023-01-17 14:06 | ED.FALL ---
HPI - Fall General Chief Complaint: Fall Stated Complaint: unwitnessed GLF History of Present Illness HPI Narrative: 87-year-old female presented the emergency department for evaluation after having a ground-level fall. Patient resides at a memory care unit patient is alert and oriented x1 at baseline. Fall was unwitnessed. Patient states that she lost her balance and fell. Patient denies any loss of consciousness. Patient does complain of some facial pain but denies any other pain or injury. Patient does have a hematoma over her left eye. Related Data Home Medications Medication Instructions Recorded Confirmed labetalol 100 mg tablet 50 mg PO BID 08/12/20 12/08/22 sodium bicarbonate 650 mg tablet 650 mg PO BID 09/29/21 12/08/22 acetaminophen 650 mg 650 mg PO Q12H 08/19/22 12/08/22 tablet,extended release cetirizine 10 mg tablet 10 mg PO DAILY 08/19/22 12/08/22 citalopram 20 mg tablet (Celexa) 20 mg PO DAILY 08/19/22 12/08/22 Allergies Allergy/AdvReac Type Severity Reaction Status Date / Time NSAIDS (Non-Steroidal AdvReac Severe contraindicated. Verified 01/17/23 13:52 Anti-Inflamma CKD 4 Review of Systems Review of Systems: All systems reviewed & are unremarkable except as noted in HPI and below PMFSH Past Medical History Medical History Acute hyponatremia Age-related osteoporosis without current pathological fracture Chronic renal insufficiency Dementia Essential hypertension Fracture of left clavicle HX: breast cancer Hypertensive kidney disease, stage IV Orthostatic hypotension Postmenopausal 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 (of renal origin) (05/03/19) Surgical History Surgical History H/O bilateral mastectomy History of left hip replacement History of shoulder replacement Family History Family History Father Family history of suicide Family history of mental disorder Depression Mother Family history of malignant neoplasm of breast in first degree relative Sibling Family history of obesity Family history of mental disorder Depression Hypertension Family history of cardiovascular disease Family history of Alzheimer's disease Other Family history of malignant neoplasm Social History Social History Smoking status: Never smoker Alcohol intake: never Substance use: never Substance use type: does not use Lack of Transportation: No Lack of Food: Never True Current Housing: I Have Housing Concerned About Future Housing: No Difficulty Paying Gas/Electric Bills: No Difficulty Paying for Meds: No Currently Unemployed: No Education: Grade School Difficulty w/ Childcare or Family Care: No Living arrangements: assisted living Additional living arrangements comments: lives at home with Gender identity (if verbalized by the patient): Female Spiritual care concerns: No Exam Narrative: APPEARANCE: Well appearing, no pain, no distress, well-nourished. HEAD: normocephalic, laceration over left eyebrow. EYES: PERRLA/EOMI, conjunctivae clear. NOSE: Normal no drainage NECK: Supple. No adenopathy, no masses. RESPIRATORY: Airway patent, respirations nonlabored. Clear to auscultation bilaterally, no rales, rhonchi, wheezing. CARDIOVASCULAR: Regular rate and rhythm without murmurs rubs or gallops. ABDOMINAL: Soft, nontender, nondistended, normal bowel sounds MUSCULOSKELETAL: Moves all extremities. Strength/ROM intact, No edema, No calf tenderness. NEURO: Alert. Cranial nerves II through XII intact. Grossly intact SKIN: Warm, dry. Normal Color Course Course Emergency Course: 87-year-old female presented to ED for evaluation after having a ground-level fall. Head CT was negative fo
--- NOTE | 2023-01-17 17:16 | PC.NURSE ---
Report/discharge instructions given to Estefanía at [facility].
[2023-01-17 21:55] VITALS: BP 165/85; PULSE 85; RESP 16; O2SAT 100
== END 2023-01-17 21:56 ==
PROVIDERS: Emergency Provider Emergency Medicine; PCP Nurse Practitioner Family
DX: S01.112A Laceration without foreign body of left eyelid and periocular area, initial encounter (principal); I12.9 Hypertensive chronic kidney disease with stage 1 through stage 4 chronic kidney disease, or unspecified chronic kidney disease; N18.4 Chronic kidney disease, stage 4 (severe); F03.90 Unspecified dementia, unspecified severity, without behavioral disturbance, psychotic disturbance, mood disturbance, and anxiety; N25.81 Secondary hyperparathyroidism of renal origin; M19.90 Unspecified osteoarthritis, unspecified site; M81.0 Age-related osteoporosis without current pathological fracture; Z85.3 Personal history of malignant neoplasm of breast; Z96.642 Presence of left artificial hip joint; Z96.619 Presence of unspecified artificial shoulder joint; Z90.13 Acquired absence of bilateral breasts and nipples; W18.39XA Other fall on same level, initial encounter
CPT/HCPCS: 70450; 70486; 72125; 99284

== ENCOUNTER 2023-01-19 13:35 | Observation (INO) | payer MEDICARE, SELFPAY ==
[2023-01-19] VITALS (11 sets, daily range): BP systolic 128–182; BP diastolic 54–68; PULSE 60–83; RESP 11–20; TEMP 36.4–36.7; O2SAT 98–100; BMI 22.6
--- NOTE | ~2023-01-19 | CT_ITS ---
EXAMINATION: CT abdomen pelvis wo con DATE: 01/19/2023 14:33 INDICATION: Abdominal pain. Fall. TECHNIQUE: Computed tomography (CT) of the abdomen and pelvis was performed without intravenous contr ast. Automated exposure control and iterative reconstruction technique were employed. The dose-length product was 627.84 mGy-cm. COMPARISON: None FINDINGS: 3 mm right middle lobe nodule and 4 mm nodule at the posterior sulcus of the left lower lobe. 6 mm an gular intrafissural lymph node along the inferior right major fissure. Borderline heart size. Small p ericardial effusion. Moderate size sliding-type hiatal hernia. Multiple scattered small hepatic and s plenic calcific lesions consistent with old granulomatous disease. Gallbladder, pancreas, bilateral a drenal glands and kidneys are normal. There is moderate colonic diverticulosis with a sigmoid predomi nance. There is no adjacent inflammatory change to suggest diverticulitis. 6 cm ball of stool at the rectum. No bowel obstruction. Bladder, uterus and bilateral adnexa are unremarkable. No free intraper itoneal gas or fluid. No pathologically enlarged abdominal or pelvic lymphadenopathy. Left total hip arthroplasty. A right shoulder arthroplasty is also evident on the housekeeping attendant topogram. Mild lumbar dextro curvature with severe spondylosis at L4-L5 and otherwise mild lumbar and lower thoracic spondylosis. IMPRESSION: 1. No acute fracture or acute intra-abdominal/pelvic process. 2. Borderline heart size with small pericardial effusion. 3. Diverticulosis. 4. Couple small pulmonary nodules measuring up to 4 mm. If the patient is low risk for lung cancer, n o follow-up is needed. If the patient is high risk (i.e., history of smoking or asbestos or significa nt radiation exposure), optional follow-up chest CT could be considered at 12 months. Reviewed, dictated and finalized at location A. IMPRESSION: 1. No acute fracture or acute intra-abdominal/pelvic process. 2. Borderline heart size with small pericardial effusion. 3. Diverticulosis. 4. Couple small pulmonary nodules measuring up to 4 mm. If the patient is low r isk for lung cancer, no follow-up is needed. If the patient is high risk (i.e., history of smoking or asbestos or significant radiation exposure), optional fo llow-up chest CT could be considered at 12 months.
--- NOTE | ~2023-01-19 | CT_ITS ---
EXAMINATION: CT brain wo con DATE: 01/19/2023 14:33 INDICATION: Status post fall. Head injury. TECHNIQUE: Computed tomography (CT) of the head was performed without intravenous contrast. The dose- length product was 529.67 mGy-cm. Automated exposure control and iterative reconstruction technique w ere employed. COMPARISON: CT dated 01/17/2023 FINDINGS: Generalized atrophy. There are scattered moderate periventricular and subcortical white mat ter changes, most likely related to small vessel ischemic disease (microangiopathy). There is intracr anial atherosclerosis. No acute intracranial hemorrhage, infarction, mass or mass effect. No ventricu lomegaly or midline shift. Basilar cisterns are patent. Paranasal sinuses and mastoids are pneumatize d. No depressed skull fractures. IMPRESSION: 1. No acute intracranial abnormality. 2: Chronic age-related findings. Reviewed, dictated and finalized at location []
--- NOTE | ~2023-01-19 | XR_ITS ---
XR chest 1V portable 01/19/2023 14:42 Indication: Syncope Procedure: AP portable chest Comparison: Comparison to multiple prior studies sequentially, with oldest reviewed study dated 11/13. Findings: Heart size normal. No focal air space disease, pulmonary edema, pleural effusion or suspect ed pneumothorax. There is a right shoulder arthroplasty. 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 Impression: 1: No acute cardiopulmonary disease. Reviewed, dictated and finalized at location [] Impression: 1: No acute cardiopulmonary disease.
--- NOTE | ~2023-01-19 | CT_ITS ---
EXAMINATION: CT cervical spine wo con DATE: 01/19/2023 14:33 INDICATION: Neck pain after fall TECHNIQUE: Computed tomography (CT) of the cervical spine was performed without intravenous contrast. The dose-length product was 150 mGy-cm. Automated exposure control and iterative reconstruction tech [employer] were employed. COMPARISON: CT dated 01/18/2020 FINDINGS: Craniovertebral junction is normal. There is disc narrowing at all cervical spine levels. N ormal cervical lordosis. Odontoid process is normal. No evidence for perched facet. No spinous proces s fracture. Mild superior endplate compression deformity of T2 which appears chronic. No focal lytic or blastic lesions. No significant paraspinal soft tissue abnormality. No fracture or traumatic malal ignment. Lung apices are unremarkable. IMPRESSION: 1. No acute abnormality of the cervical spine. 2: Moderate-severe cervical spondylosis. Reviewed, dictated and finalized at location []
--- NOTE | ~2023-01-19 | US_ITS ---
Procedure: Duplex Doppler examination of the bilateral carotids. Indication: Syncope Technique: Real time, color-flow and pulse wave Doppler examination of the bilateral carotids was performed. Findings: Guzman scale ultrasonography of the right neck demonstrated small plaques at the right carotid bulb. Th ere was demonstration of normal color-flow and Doppler waveforms within the right common, internal an d external carotid arteries. The peak systolic velocities in the right common, internal and external carotid arteries were demonstrated to be 105 cm/sec, 86 cm/sec and 133 cm/sec respectively. The right ICA/CCA ratio was 0.8.The proximal right internal carotid artery demonstrates 0% stenosis relative t o the normal distal artery lumen diameter. Guzman scale sonography of the left neck demonstrated small plaque at the left carotid bulb. There was demonstration of normal color-flow and wave forms within the left common, internal and external carot id arteries. The peak systolic velocities in the left common, internal and external carotid arteries were demonstrated to be 115cm/sec, 133 cm/sec and 127 cm/sec respectively. The left ICA/CCA ratio was 1.2. The proximal left internal carotid artery demonstrates 0% stenosis relative to the normal dista l artery lumen diameter. There was antegrade flow demonstrated in the bilateral vertebral arteries. Impression: No hemodynamically significant stenosis of the bilateral internal carotid arteries. Antegrade flow in the bilateral vertebral arteries. Note: The methodology used is an indirect measurement validated against a direct method (such as the NASCET criteria) that compares diameters at the stenosis to the distal ICA. Reviewed, dictated and finalized at location . Impression: No hemodynamically significant stenosis of the bilateral internal carotid arter ies. Antegrade flow in the bilateral vertebral arteries. Note: The methodology used is an indirect measurement validated against a direct meth od (such as the NASCET criteria) that compares diameters at the stenosis to the distal ICA.
[2023-01-19 14:07] LABS: Basophils Absolute Auto 0.1 K/mm3 (0.0-0.1); Eosinophils Absolute Auto 0.2 K/mm3 (0-0.3); Eosinophils Percent Auto 2.9 % (0-4.4); Hematocrit 36.4 % (37.0-47.0); Hemoglobin 11.2 g/dL (12.0-15.0); Immature Granulocyte Absolute 0.06 K/mm3 (0.00-0.031); Immature Granulocyte Percent A 0.8 % (0-0.5); Lymphocytes Absolute Auto 1.31 K/mm3 (0.9-3.2); Lymphocytes Percent Auto 16.5 % (18.3-44.2); Mean Corpuscular HGB Conc 30.8 g/dl (32-36); Mean Corpuscular Hemoglobin 30.2 pg (26-34); Mean Corpuscular Volume 98.1 fl (80-100); Mean Platelet Volume 10.4 fl (7.4-10.4); Monocytes Absolute Auto 0.5 K/mm3 (0.1-0.6); Monocytes Percent Auto 6.4 % (2.6-8.5); Neutrophils Absolute Auto 5.7 K/mm3 (1.3-6.7); Neutrophils Percent Auto 72.4 % (45.5-73.1); Platelet Count Result 250 k/mm3 (150-375); Red Blood Count 3.71 M/mm3 (4.2-5.4); Red Cell Distribution Width 14.4 % (11.5-14.5); White Blood Count 7.9 K/mm3 (4.5-10.0)
--- NOTE | 2023-01-19 14:13 | ED.SYNCOPE ---
HPI - Syncope General Chief Complaint: Syncope Stated Complaint: SYNCOPY Time Seen by Provider: 01/19/23 13:37 History of Present Illness HPI narrative: Patient is an 87-year-old female with a history of hypertension, CKD, dementia presenting after a fall. Patient was reportedly doing physical therapy when she suddenly fell and was unresponsive. She reportedly lost control of bladder and bowel function. By the time EMS arrived, she had returned to her baseline which is A&O x1. She remains at baseline currently. Patient states that she does not remember what happened. She denies pain at this time. She does complain of decreased appetite for the last week. She denies nausea or vomiting. Further history limited secondary to her underlying dementia. Related Data Home Medications Medication Instructions Recorded Confirmed labetalol 100 mg tablet 50 mg PO BID 08/12/20 01/19/23 acetaminophen 650 mg 650 mg PO Q12H 08/19/22 01/19/23 tablet,extended release cetirizine 10 mg tablet 10 mg PO DAILY 08/19/22 01/19/23 citalopram 20 mg tablet (Celexa) 20 mg PO DAILY 08/19/22 01/19/23 amlodipine 5 mg tablet 2.5 mg PO QHS 01/19/23 01/19/23 buspirone 5 mg tablet 7.5 mg PO BID 01/19/23 01/19/23 memantine 7 mg capsule 7 mg PO DAILY 01/19/23 01/19/23 sprinkle,extended release 24hr ondansetron 4 mg disintegrating 4 mg PO Q6H PRN Nausea 01/19/23 01/19/23 tablet polyethylene glycol 3350 17 gram 17 g PO BID PRN Constipation 01/19/23 01/19/23 oral powder packet sennosides 8.6 mg tablet (senna) 8.6 mg PO BID PRN Constipation 01/19/23 01/19/23 Allergies Allergy/AdvReac Type Severity Reaction Status Date / Time NSAIDS (Non-Steroidal AdvReac Severe contraindicated. Verified 01/17/23 13:52 Anti-Inflamma CKD 4 Review of Systems Review of Systems: ROS unobtainable: Yes unobtainable due to medical condition and other (underlying dementia) [facility] Past Medical History Medical History (Updated 01/27/23 @ 20:33 by Jessica Ruiz MD) Age-related osteoporosis without current pathological fracture Breast cancer Chronic renal insufficiency Dementia Essential hypertension Postmenopausal 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 (of renal origin) (05/03/19) Surgical History Surgical History (Updated 01/19/23 @ 21:41 by Kat Reyes PA-C) History of bilateral mastectomy History of left hip replacement History of shoulder replacement Family History Family History Father Family history of suicide Family history of mental disorder Depression Mother Family history of malignant neoplasm of breast in first degree relative Sibling Family history of obesity Family history of mental disorder Depression Hypertension Family history of cardiovascular disease Family history of Alzheimer's disease Other Family history of malignant neoplasm Social History Social History (Updated 01/19/23 @ 21:42 by Kat Reyes PA-C) Social History: Code status: Modified code, meds only. Smoking status: Never smoker Alcohol intake: never Substance use: never Substance use type: does not use Lack of Transportation: No Lack of Food: Never True Current Housing: I Have Housing Concerned About Future Housing: No Difficulty Paying Gas/Electric Bills: No Difficulty Paying for Meds: No Currently Unemployed: No Education: Grade School Difficulty w/ Childcare or Family Care: No Living arrangements: assisted living Additional living arrangements comments: [facility] memory care since August 2022. Spiritual care concerns: No Exam Narrative: GENERAL: Frail elderly female lying in bed in no acute distress, pleasant and cooperative HEAD: Normocephalic, ecchymosis around left eye with small superficial laceration with Steri-Strips in place EYES: PERRLA and EOMI. ENT: Nares clear, no rhinorrhea or
--- NOTE | 2023-01-19 14:14 | ECG_ITS ---
Measurements Intervals [place] Rate: 57 P: 68 WI: 147 QRS: 84 QRSD: 125 T: 69 QT: 451 QTc: 442 Interpretive Statements SINUS RHYTHM WITH A SHORT WI INTERVAL INCOMPLETE RBBB COMPARED TO ECG 11/29/2022 12:56:37 NO SIGNIFICANT CHANGES Electronically Signed On 01-19-2023 19:56:04 CDT by Mago Fu M.D.
[2023-01-19] MEDS: SODIUM CHLORIDE 0.9% IV 1,000 ML 999 ML IV CONT (14:16)
[2023-01-19 14:33] LABS: Alanine Aminotransferase 21 U/L (6-35); Albumin Level 4.2 g/dL (3.5-5.1); Alkaline Phosphatase 100 U/L (38-126); Anion Gap 10 mmol/L (8-16); Aspartate Amino Transferase 30 U/L (14-36); Bilirubin,Total 0.4 mg/dL (0.2-1.3); Blood Urea Nitrogen 44 mg/dL (7-17); Calcium 8.6 mg/dL (8.4-10.2); Carbon Dioxide 16 mmol/L (22-30); Chloride 110 mmol/L (98-107); Estimated Glomerular Filt Rate 19; Glucose 151 mg/dL (65-110); Potassium 6.2 mmol/L (3.4-5.0); Sodium 136 mmol/L (137-145)
[2023-01-19 14:49] LABS: Partial Thromboplastin Time 22.4 SECONDS (22.3-36.8); Prothrombin Time 13.6 Seconds (11.1-14.7)
[2023-01-19 14:52] LABS: Lipase 181 U/L (23-300); Magnesium 2.2 mg/dL (1.6-2.3)
[2023-01-19 15:00] LABS: NT Pro B Type Natriuretic Pept 392 pg/mL (19.9-100); Troponin I < 0.012 ng/mL (0.000-0.034)
[2023-01-19] MEDS: CALCIUM GLUCONATE 1,000 MG/10 ML VIAL 1000 MG IV PUSH (15:10)
[2023-01-19] MEDS: INSULIN HUMAN REGULAR (*BKC) 100 UNITS/ML 10 UNITS IV PUSH (15:11)
[2023-01-19] MEDS: DEXTROSE 50% 25 GM/50 ML SYRINGE IV PUSH ×2 (15:11→17:20)
[2023-01-19] MEDS: ALBUTEROL SULFATE NEB 2.5 MG/3 ML INH 5 MG INHALATION (15:26)
[2023-01-19 15:27] LABS: Appearance Urine Clear (Clear); Bacteria Urine None Seen /hpf; Bilirubin Urine Negative (Negative); Blood Urine Negative (Negative); Color Urine Yellow (Yellow); Glucose Urine UA Negative (Negative); Hyaline Casts Urine Present /lpf; Ketones Urine Negative (Negative); Leukocyte Esterase Ur Negative LEU/UL (Negative); Nitrate Urine Negative (Negative); Non Pathogenic Casts 0-2; Protein Urine 1+ mg/dL (Negative); Specific Grav Ur 1.018 (1.001-1.035); Squamous Epithelial Cell Urine None seen /hpf (Few); Urobilinogen Urine 0.2 mg/dL (<2.0); WBC Urine 0-5 /hpf; pH Urine 5.5 (5.0-9.0)
[2023-01-19 15:28] LABS: Add Urine Microscopic? YES
[2023-01-19 17:13] LABS: Anion Gap 8 mmol/L (8-16); Blood Urea Nitrogen 40 mg/dL (7-17); Calcium 8.7 mg/dL (8.4-10.2); Carbon Dioxide 17 mmol/L (22-30); Chloride 113 mmol/L (98-107); Estimated Glomerular Filt Rate 21; Glucose 41 mg/dL (65-110); Potassium 5.7 mmol/L (3.4-5.0); Sodium 138 mmol/L (137-145)
[2023-01-19 17:15] LABS: Troponin I < 0.012 ng/mL (0.000-0.034)
--- NOTE | 2023-01-19 17:59 | ADMGEN ---
This patient, Jennifer Negrete, was admitted to Medical Room 248-. Patient/family oriented to hospital policies and general routines including ID bracelet, bed and alarms, visiting hours, pain management, procedures, bathroom and other care routines, personal items, smoking policy, room service/diet, and visiting hours. Information on how to activate the Rapid Response Team has been discussed. Patient/Family are encouraged to report perceived risks to care and to ask questions if they do not understand what they are told or what they should do.
[2023-01-19 18:33] LABS: Glucose Point of Care 119 mg/dl (65-105)
[2023-01-19] MEDS: SODIUM CHLORIDE 0.9% IV 1,000 ML 100 ML IV CONT (19:19)
[2023-01-19 21:19] LABS: Troponin I < 0.012 ng/mL (0.000-0.034)
[2023-01-19 21:28] LABS: Anion Gap 9 mmol/L (8-16); Blood Urea Nitrogen 43 mg/dL (7-17); Calcium 8.5 mg/dL (8.4-10.2); Carbon Dioxide 17 mmol/L (22-30); Chloride 110 mmol/L (98-107); Estimated CRCL calculation 12 ml/min; Estimated Glomerular Filt Rate 19; Glucose 87 mg/dL (65-110); Potassium 6.2 mmol/L (3.4-5.0); Sodium 136 mmol/L (137-145)
--- NOTE | 2023-01-19 21:31 | PM.IMHP ---
H&P: HPI History of Present Illness Date/Time: 01/19/23 20:30 Chief Complaint: Syncope. Narrative: This is an 87-year-old female with dementia, chronic kidney disease, and hypertension presented to the emergency department via EMS from [facility] for evaluation after a syncopal episode. She has significant short-term memory loss and cannot recall what happened earlier today. As such almost all of the following history is obtained via a review of her EMR as well as discussions with her daughter Taylor who is at bedside, with the patient's permission. The patient was working with physical therapy (in a seated position) when she suddenly fell forward and became unresponsive with loss of bladder and bowel function. She was out briefly and seemed to be back at her baseline once she came to. Her vital signs were reportedly stable on EMS arrival. Labs in the ED were significant for a sodium of 136, potassium 6.2, chloride 110, carbon dioxide 16, BUN 44, creatinine 2.40, proBNP 392. She received appropriate treatment for hyperkalemia with an improvement in her potassium to 5.7 following treatment. She has been started on IV fluids and she is being admitted in this setting for acute on chronic kidney injury and hyperkalemia. She sees Dr. Jimenez and had been on sodium bicarbonate tablets for quite some time however staff at her living facility were concerned that her blood pressures were running too high because of the bicarbonate tablets and those were discontinued sometime last month. She was recently started on Bactrim DS for a urinary tract infection. According to Taylor, the patient typically has really good appetite and eats well however appetite has dropped off over the last week. There has been no documented fever. The patient has no complaints herself and she denies lightheadedness, dizziness, headache, vision changes, focal weakness, chest pain, shortness a breath, abdominal pain, nausea, vomiting, diarrhea, and dysuria. Of note the patient was seen emergency department 2 days ago following a ground level fall in which the patient states that she lost her balance and fell forward without reported loss of consciousness. Review of Systems Review of Systems: Unable to be obtained accurately due to significant short-term memory loss. [facility] Past Medical History Medical History (Updated 01/19/23 @ 21:52 by Kat Reyes PA-C) Age-related osteoporosis without current pathological fracture Breast cancer Chronic renal insufficiency Dementia Essential hypertension Postmenopausal 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 (of renal origin) (05/03/19) Surgical History Surgical History (Updated 01/19/23 @ 21:41 by Kat Reyes PA-C) History of bilateral mastectomy History of left hip replacement History of shoulder replacement Family History Family History Father Family history of suicide Family history of mental disorder Depression Mother Family history of malignant neoplasm of breast in first degree relative Sibling Family history of obesity Family history of mental disorder Depression Hypertension Family history of cardiovascular disease Family history of Alzheimer's disease Other Family history of malignant neoplasm Social History Social History (Updated 01/19/23 @ 21:42 by Kat Reyes PA-C) Social History: Code status: Modified code, meds only. Smoking status: Never smoker Alcohol intake: never Substance use: never Substance use type: does not use Lack of Transportation: No Lack of Food: Never True Current Housing: I Have Housing Concerned About Future Housing: No Difficulty Paying Gas/Electric Bills: No Difficulty Paying for Meds: No Currently Unemployed: No Education: Grade School Difficulty w/ Childcare or Family Care: No Living arrangements: assisted living Additio
[2023-01-19] MEDS: ALBUTEROL SULFATE NEB 2.5 MG/3 ML INH 10 MG INHALATION (21:40)
[2023-01-19] MEDS: SODIUM BICARBONATE 8.4% 50 MEQ/50 ML SYRINGE 100 MEQ IV PUSH (21:43)
[2023-01-19] MEDS: CALCIUM GLUC 1,000 MG/NS 50 ML 1,000 MG/50 ML BAG 100 MG IVPB (21:43)
[2023-01-20] VITALS (23 sets, daily range): BP systolic 121–187; BP diastolic 52–76; PULSE 70–93; RESP 16–17; TEMP 35.6–37.1; O2SAT 93–100
--- NOTE | 2023-01-20 | ECHO_ITS ---
Patient Info Name: Jennifer Negrete Age: 87 years : 1935 Gender: Female Ht: 61 in Wt: 119 lbs BSA: 1.53 m2 HR: 81 bpm BP: 128 / 53 mmHg Heart Rhythm: Sinus Rhythm Technical Quality: Fair Exam Date: 01/20/2023 10:05 AM Exam Location: [facility] Pulmonary Patient Status: Inpatient Admit Date: 01/19/2023 Staff Ordering Physician: Kat Reyes PA-C Supervisor Chlorine Liquefaction: Kuldeep Novoa RDCS Attending Provider: Cinthya Atkins PA-C Referring Physician: Amy JONES; Exam Type: CA echo doppler color flow Study Info Indications - syncope Complete two-dimensional, color flow and Doppler transthoracic echocardiogram is performed. Summary 1. Complete two-dimensional, color flow and Doppler transthoracic echocardiogram is performed. 2. Left ventricular chamber dimension is normal. 3. Left ventricular systolic function is hyperdynamic, estimated at >70%. 4. There is mild concentric increased left ventricular wall thickness. 5. The left ventricular diastolic function is grade I diastolic dysfunction. 6. E/e' 15 is elevated. 7. Left atrial chamber dimension is mildly enlarged. 8. There is moderate aortic valve sclerosis. 9. There is mild aortic valve regurgitation. 10. The mitral valve has mildly calcified annulus. 11. No pulmonary hypertension, estimated pulmonary arterial systolic pressure is 7 mmHg. Left Ventricle E/e' 15 is elevated. Left ventricular chamber dimension is normal. Left ventricular systolic function is hyperdynamic, estimated at >70%. There is mild concentric increased left ventricular wall thickness. The left ventricular diastolic function is grade I diastolic dysfunction. Right Ventricle Right ventricular systolic function is normal and with normal TAPSE 2.6 cm. Right ventricular chamber dimension is normal. Left Atria Left atrial chamber dimension is mildly enlarged. Right Atria Right atrial chamber dimension is normal. Aortic Valve The aortic valve is trileaflet. There is moderate aortic valve sclerosis. There is no aortic valve stenosis. There is mild aortic valve regurgitation. Pulmonic Valve There is no pulmonic regurgitation. Mitral Valve The mitral valve has mildly calcified annulus. There is no mitral valve stenosis. There is no mitral valve regurgitation. Tricuspid Valve There is no tricuspid valve regurgitation. No pulmonary hypertension, estimated pulmonary arterial systolic pressure is 7 mmHg. Pericardium/Pleural There is no pericardial effusion. Inferior Vena Cava Normal inferior vena cava with >50% collapse upon inspiration consistent with normal right atrial pressure, 5 mmHg. Aorta The aortic root size at the sinus of Valsalva is normal. Left Ventricular Outflow Tract Name Value Normal LVOT 2D LVOT Diameter 1.9 cm LVOT Doppler LVOT Peak Gradient 5 mmHg LVOT Mean Gradient 3 mmHg LVOT VTI 27 cm LVOT VTI/AV VTI Ratio 1.0 LVOT Stroke Volume 72 ml LVOT CO 5.2 l/min LVOT CI 3.4 l/min/m2 Mitral Valve
[2023-01-20] MEDS: CYANOCOBALAMIN 1,000 MCG TABLET 1000 MCG PO ×2 (00:03→20:21)
[2023-01-20] MEDS: ACETAMINOPHEN 325 MG TABLET 650 MG PO ×4 (00:03→22:59)
[2023-01-20] MEDS: LABETALOL HCL 50 MG TABLET PO ×3 (00:04→17:52)
[2023-01-20] MEDS: amLODIPine BESYLATE 2.5 MG TABLET PO ×2 (00:04→20:21)
[2023-01-20] MEDS: LACTATED RINGERS 1,000 ML 75 ML IV CONT (00:05)
[2023-01-20] MEDS: busPIRone HCL 5 MG TABLET PO ×3 (00:05→17:52)
[2023-01-20] MEDS: busPIRone HCL 2.5 MG TABLET PO ×3 (00:06→17:52)
[2023-01-20 00:38] LABS: Anion Gap 7 mmol/L (8-16); Blood Urea Nitrogen 40 mg/dL (7-17); CRP < 0.5 mg/dL (<1.0); Calcium 8.7 mg/dL (8.4-10.2); Carbon Dioxide 20 mmol/L (22-30); Chloride 110 mmol/L (98-107); Creatine Kinase 118 U/L (30-135); Estimated CRCL calculation 12 ml/min; Estimated Glomerular Filt Rate 20; Glucose 98 mg/dL (65-110); Sodium 137 mmol/L (137-145)
[2023-01-20 00:44] LABS: Complement C3 99 mg/dL (88-165)
[2023-01-20 01:09] LABS: Erythrocyte Sedimentation Rate 35 mm/hr (0-20)
[2023-01-20 03:11] LABS: Creatinine Urine 70.9 mg/dL; Total Protein Urine Random 21 mg/dL
[2023-01-20 03:14] LABS: Potassium Urine Random 28.4 meq/L; Sodium Urine Random 153 meq/L
[2023-01-20 03:59] LABS: Eosinophil Urine None Seen % (None Seen)
[2023-01-20 04:17] LABS: Urine Eos QC 2nd Tech Confirmed
[2023-01-20 05:16] LABS: Hematocrit 30.1 % (37.0-47.0); Hemoglobin 9.4 g/dL (12.0-15.0); Mean Corpuscular HGB Conc 31.2 g/dl (32-36); Mean Corpuscular Hemoglobin 29.7 pg (26-34); Mean Platelet Volume 10.3 fl (7.4-10.4); Platelet Count Result 202 k/mm3 (150-375); Red Blood Count 3.17 M/mm3 (4.2-5.4); Red Cell Distribution Width 14.3 % (11.5-14.5); White Blood Count 8.3 K/mm3 (4.5-10.0)
[2023-01-20 05:29] LABS: Anion Gap 8 mmol/L (8-16); Blood Urea Nitrogen 37 mg/dL (7-17); Calcium 8.8 mg/dL (8.4-10.2); Carbon Dioxide 20 mmol/L (22-30); Chloride 110 mmol/L (98-107); Estimated CRCL calculation 13 ml/min; Estimated Glomerular Filt Rate 22; Glucose 83 mg/dL (65-110); Magnesium 1.9 mg/dL (1.6-2.3); Potassium 5.4 mmol/L (3.4-5.0); Sodium 138 mmol/L (137-145)
[2023-01-20] MEDS: SODIUM CHLORIDE 0.9% IV 1,000 ML 75 ML IV CONT (08:34)
[2023-01-20] MEDS: CHOLECALCIFEROL 1,000 UNITS TABLET 1000 UNITS PO (08:40)
[2023-01-20] MEDS: MEMANTINE HCL XR 7 MG CAP PO (08:40)
[2023-01-20] MEDS: CITALOPRAM HYDROBROMIDE 20 MG TABLET PO (08:41)
[2023-01-20] MEDS: LORATADINE 10 MG TABLET PO (08:41)
--- NOTE | 2023-01-20 15:15 | P.CONNP_ITS ---
Assessment and Plan Assessment and plan (1) JEN (acute kidney injury): Code(s): N17.9 - Acute kidney failure, unspecified Status: Acute Assessment and Plan: * etiology not clear * presumed due to bactrim use and possible prerenal factors * evaluation to date: * CT of A/P without kidney pathology * urine electrolytes non-prerenal * urine eosinophils negative * CPK normal * agree with trial of IVFs * follow trend of repeat labs and UOP (2) Chronic kidney disease, stage 3b: Code(s): N18.32 - Chronic kidney disease, stage 3b Status: Chronic Assessment and Plan: * baseline creatinine around 1.5 - 1.7mg/dl * however, creatinine as been as high as 2.1mg/dl * based on outpatient evaluation, due to hypertensive nephrosclerosis (3) Hyperkalemia: Code(s): E87.5 - Hyperkalemia Status: Acute Assessment and Plan: * has been an issue in the past as well * likely due to combo of lisinopril and bactrim * thought GUADALUPE-I on hold (based on Dr. Jimenez's last office visit last month) * s/p medical management * follow trend of K+ * repeat medical management as needed (4) Syncope: Code(s): R55 - Syncope and collapse Status: Acute Assessment and Plan: * evaluation ongoing * Echo and carotid dopplers pending * ++ orthostasis * trial of IVFs for now * follow hemodyamics * brien hose in place (5) Essential hypertension: Code(s): I10 - Essential (primary) hypertension Status: Chronic Assessment and Plan: * fluctuating on admission * better by last reading * follow trend of hemodynamics (6) Dementia: Code(s): F03.90 - Unspecified dementia, unspecified severity, without behavioral disturbance, psychotic disturbance, mood disturbance, and anxiety Status: Chronic Assessment and Plan: * chronic issue I will continue to follow the patient with you while she remains hospitalized to make further recommendations as needed. Thank you for allowing me to participate in care this patient. History of Present Illness Reason for Consult Consult date: 01/20/23 Reason for consult: acute renal failure and hyperkalemia Chief Complaint Chief complaint: hyperkalemia History of Present Illness Narrative: Most of the information I have obtained is from review of the electronic medical record as well as discussion with the physician/nurses involved in the patient's care as is difficult to get a full and complete history from the patient due to her significant/severe dementia. Patient is an 87-year-old female with a past medical history as outlined below who presented to [facility] Emergency Room from her nursing facility for further evaluation of a syncopal episode. The patient cannot recall the events that led to her presentation to the emergency room. However, from review of her records, the patient was working with physical therapy when she suddenly fell forward and became unresponsive in association with loss of bladder and bowel function. She was unconscious very briefly and came back to her baseline when she woke up. EMS was called when this event occurred. By the time of EMS arrival, her vital signs apparently were stable. Nonetheless, she was transferred to the ER for further assessment of this issue. Workup and evaluation emergency room demonstrated the patient to be hemodynamically stable but routine blood tests were significant for an elevated BUN and creatinine above her baseline in association with hyperkalemia. She
--- NOTE | 2023-01-20 15:15 | PM.CNNEP ---
Assessment and Plan Assessment and plan (1) JEN (acute kidney injury): Code(s): N17.9 - Acute kidney failure, unspecified Status: Acute Assessment and Plan: etiology not clear presumed due to bactrim use and possible prerenal factors evaluation to date: CT of A/P without kidney pathology urine electrolytes non-prerenal urine eosinophils negative CPK normal agree with trial of IVFs follow trend of repeat labs and UOP (2) Chronic kidney disease, stage 3b: Code(s): N18.32 - Chronic kidney disease, stage 3b Status: Chronic Assessment and Plan: baseline creatinine around 1.5 - 1.7mg/dl however, creatinine as been as high as 2.1mg/dl based on outpatient evaluation, due to hypertensive nephrosclerosis (3) Hyperkalemia: Code(s): E87.5 - Hyperkalemia Status: Acute Assessment and Plan: has been an issue in the past as well likely due to combo of lisinopril and bactrim thought GUADALUPE-I on hold (based on Dr. Jimenez's last office visit last month) s/p medical management follow trend of K+ repeat medical management as needed (4) Syncope: Code(s): R55 - Syncope and collapse Status: Acute Assessment and Plan: evaluation ongoing Echo and carotid dopplers pending ++ orthostasis trial of IVFs for now follow hemodyamics brien hose in place (5) Essential hypertension: Code(s): I10 - Essential (primary) hypertension Status: Chronic Assessment and Plan: fluctuating on admission better by last reading follow trend of hemodynamics (6) Dementia: Code(s): F03.90 - Unspecified dementia, unspecified severity, without behavioral disturbance, psychotic disturbance, mood disturbance, and anxiety Status: Chronic Assessment and Plan: chronic issue I will continue to follow the patient with you while she remains hospitalized to make further recommendations as needed. Thank you for allowing me to participate in care this patient. History of Present Illness Reason for Consult Consult date: 01/20/23 Reason for consult: acute renal failure and hyperkalemia Chief Complaint Chief complaint: hyperkalemia History of Present Illness Narrative: Most of the information I have obtained is from review of the electronic medical record as well as discussion with the physician/nurses involved in the patient's care as is difficult to get a full and complete history from the patient due to her significant/severe dementia. Patient is an 87-year-old female with a past medical history as outlined below who presented to [facility] Emergency Room from her nursing facility for further evaluation of a syncopal episode. The patient cannot recall the events that led to her presentation to the emergency room. However, from review of her records, the patient was working with physical therapy when she suddenly fell forward and became unresponsive in association with loss of bladder and bowel function. She was unconscious very briefly and came back to her baseline when she woke up. EMS was called when this event occurred. By the time of EMS arrival, her vital signs apparently were stable. Nonetheless, she was transferred to the ER for further assessment of this issue. Workup and evaluation emergency room demonstrated the patient to be hemodynamically stable but routine blood tests were significant for an elevated BUN and creatinine above her baseline in association with hyperkalemia. She received IV fluids and medical management for her hyperkalemia with improvement in her potassium down to 5.7 from 6.2. On further review of her records, she was on sodium bicarbonate pills for her metabolic acidosis associated with her chronic kidney disease but this was discontinued by her nursing facility as they were concerned that this may be contributing to her high blood pressure. Furthermore, she was started on Bactri
--- NOTE | 2023-01-20 16:19 | PM.IMPN ---
Progress Note: A&P Assessment and Plan (1) Syncope: Code(s): R55 - Syncope and collapse Status: Acute (2) Acute on chronic renal failure: Code(s): N17.9 - Acute kidney failure, unspecified; N18.9 - Chronic kidney disease, unspecified Status: Acute (3) Hyperkalemia: Code(s): E87.5 - Hyperkalemia Status: Acute (4) Essential hypertension: Code(s): I10 - Essential (primary) hypertension Status: Acute (5) Dementia: Code(s): F03.90 - Unspecified dementia, unspecified severity, without behavioral disturbance, psychotic disturbance, mood disturbance, and anxiety Status: Acute (6) Pulmonary nodule: Code(s): R91.1 - Solitary pulmonary nodule Status: Acute Plan The patient presented to the emergency department for evaluation after a syncopal episode while doing physical therapy in a chair. She has severe short-term memory loss and is down able to provide details surrounding event. Etiology is not entirely clear. She has several electrolyte abnormalities and it is possible that she may very well have had a cardiac dysrhythmia. Vital signs have been stable thus far. Continue to monitor on telemetry. Noted to be orthostatic today with 34 point drop in systolic BP. Initiate Eliazar hose. Continue with IV fluid hydration. Monitor orthostatics each shift. Carotid Doppler ultrasound pending. Echocardiogram pending. Potassium elevated at 5.4 today. Continue with low-potassium diet and IV fluid rehydration. Recheck potassium this afternoon. Likely related to Bactrim and lisinopril concurrent use, both on hold at this time. Monitor BMP closely. Consult to Nephrology, recommendations appreciated. Patient reportedly on sodium bicarbonate tabs, not on her home med list. Await Nephrology recommendations and resume as appropriate. Creatinine remaining slightly elevated, 2.1 today. Seems to be improving with IV fluid hydration which will be continued. Appreciate Nephrology recommendations. There are small pulmonary nodules noted on CT which can be followed as an outpatient if deemed necessary; she does have a history of bilateral breast cancer. Subjective Date/time seen: 01/20/23 16:19 Interval history: Date of service: 01/20/2023 Jennifer Negrete is an 87-year-old female with a history of hypertension, secondary hyperparathyroidism, chronic renal insufficiency, and dementia who is seen in follow-up for hyperkalemia. Patient is not able to provide any history due to her dementia. Review of Systems Review of Systems: ROS unobtainable: Yes unobtainable due to mental status Exam Narrative: General: Thin, chronically ill-appearing 87-year-old female, supine in bed, comfortable, NARD Neuro: awake, alert and oriented to self only, speech clear, no focal neuro deficits noted HEENMT: normocephalic, atraumatic, EOMI, left periorbital ecchymosis, sclerae anicteric Respiratory: clear to auscultation bilaterally, nonlabored breathing Cardio: regular rate, regular rhythm with S1-S2 Abdomen: nondistended, normoactive bowel sounds, soft, nontender to palpation Extremities: no edema, erythema, or tenderness to palpation Skin: no rashes or lesions, warm and dry Psych: Confused, judgment and insight poor Objective Data Vital Signs Vital Signs: Vital Signs - 24 hr 01/19/23 16:21 01/19/23 17:20 01/19/23 18:00 Temperature 98.0 F Pulse Rate 77 69 76 Respiratory Rate 16 16 20 Blood Pressure 128/68 152/55 H 182/67 H Pulse Oximetry 100 100 100 Oxygen Delivery 01/19/23 18:57 01/19/23 20:49 01/19/23 20:00 Temperature 98.0 F Pulse Rate 77 Respiratory Rate 17 Blood Pressure 165/60 H Pulse Oximetry 100 Oxygen Delivery Room Air Room Air 01/19/23 21:11 01/19/23 21:42 01/20/23 00:04 Temperature Pulse Rate 83 93 Respiratory Rate 18 Blood Pressure Pulse Oximetry Oxygen Delivery 01/20/23 00:00 01/20/23 05:15 01/20/23 05:
[2023-01-20 17:01] LABS: Potassium 5.5 mmol/L (3.4-5.0)
[2023-01-21] VITALS (18 sets, daily range): BP systolic 167–210; BP diastolic 70–165; PULSE 71–93; RESP 12–18; TEMP 36.4–36.7; O2SAT 94–100
[2023-01-21] MEDS: SODIUM CHLORIDE 0.9% IV 1,000 ML 75 ML IV CONT ×2 (03:34→16:28)
[2023-01-21 06:26] LABS: Hematocrit 30.6 % (37.0-47.0); Hemoglobin 9.4 g/dL (12.0-15.0); Mean Corpuscular HGB Conc 30.7 g/dl (32-36); Mean Corpuscular Hemoglobin 29.9 pg (26-34); Mean Corpuscular Volume 97.5 fl (80-100); Mean Platelet Volume 11.4 fl (7.4-10.4); Platelet Count Result 218 k/mm3 (150-375); Red Blood Count 3.14 M/mm3 (4.2-5.4); Red Cell Distribution Width 14.2 % (11.5-14.5); White Blood Count 6.9 K/mm3 (4.5-10.0)
[2023-01-21 06:50] LABS: Anion Gap 4 mmol/L (8-16); Blood Urea Nitrogen 32 mg/dL (7-17); Calcium 8.6 mg/dL (8.4-10.2); Carbon Dioxide 20 mmol/L (22-30); Chloride 110 mmol/L (98-107); Estimated CRCL calculation 17 ml/min; Estimated Glomerular Filt Rate 29; Glucose 81 mg/dL (65-110); Potassium 5.2 mmol/L (3.4-5.0); Sodium 134 mmol/L (137-145)
[2023-01-21] MEDS: busPIRone HCL 5 MG TABLET PO ×2 (07:53→16:30)
[2023-01-21] MEDS: LABETALOL HCL 50 MG TABLET PO ×2 (07:53→16:30)
[2023-01-21] MEDS: busPIRone HCL 2.5 MG TABLET PO ×2 (07:53→16:30)
[2023-01-21] MEDS: CITALOPRAM HYDROBROMIDE 20 MG TABLET PO (07:53)
[2023-01-21] MEDS: ACETAMINOPHEN 325 MG TABLET 650 MG PO ×2 (07:53→20:13)
[2023-01-21] MEDS: LORATADINE 10 MG TABLET PO (07:54)
[2023-01-21] MEDS: MEMANTINE HCL XR 7 MG CAP PO (07:54)
[2023-01-21] MEDS: SODIUM ZIRCONIUM CYCLOSILICATE 10 GM POWD.PACK PO (10:19)
--- NOTE | 2023-01-21 12:03 | P.PNNP_ITS ---
Progress Note: A&P Assessment and Plan (1) JEN (acute kidney injury): Code(s): N17.9 - Acute kidney failure, unspecified Status: Acute Assessment and Plan: * resolved/resolving * etiology not clear * presumed due to bactrim use and possible prerenal factors * evaluation to date: * CT of A/P without kidney pathology * urine electrolytes non-prerenal * urine eosinophils negative * CPK normal * agree with trial of IVFs * follow trend of repeat labs and UOP (2) Chronic kidney disease, stage 3b: Code(s): N18.32 - Chronic kidney disease, stage 3b Status: Chronic Assessment and Plan: * baseline creatinine around 1.5 - 1.7mg/dl * however, creatinine as been as high as 2.1mg/dl * based on outpatient evaluation, due to hypertensive nephrosclerosis * on sodium bicarbonate for metabolic acidosis (3) Hyperkalemia: Code(s): E87.5 - Hyperkalemia Status: Acute Assessment and Plan: * slow improvement * has been an issue in the past as well * likely due to combo of lisinopril and bactrim * thought GUADALUPE-I on hold (based on Dr. Jimenez's last office visit last month) * s/p medical management * follow trend of K+ * repeat medical management as needed (4) Syncope: Code(s): R55 - Syncope and collapse Status: Acute Assessment and Plan: * evaluation ongoing * imaging (Echo, carotid dopplers...etc) reviewed * ++ orthostasis initially -- better at ths time * s/p IVFs * follow hemodynamics * brien colladoe in place (5) Essential hypertension: Code(s): I10 - Essential (primary) hypertension Status: Chronic Assessment and Plan: * fluctuating on admission * better by last reading * follow trend of hemodynamics * consider resuming lisinopril at lower dose (6) Dementia: Code(s): F03.90 - Unspecified dementia, unspecified severity, without behavioral disturbance, psychotic disturbance, mood disturbance, and anxiety Status: Chronic Assessment and Plan: * chronic issue Will continue to follow. Subjective Date/time seen: 01/21/23 12:03 Interval history: Follow-up for acute kidney injury on chronic kidney disease and hyperkalemia. Due to her dementia, difficult to get any history from the patient; however, she does not appear in any acute distress; no other reported events overnight; renal function back to baseline with relative stability in potassium level; BP has been running higher side (since holding lisinopril). Exam Narrative: General: thin elderly female in NAD Heart: normal S1 and S2; no rub Lungs: clear to auscultation Abdomen: soft, nontender, nondistended, positive bowel sounds Extremities: no cyanosis or clubbing; no edema Skin: warm and dry Objective Data Vital Signs Vital Signs: Vital Signs Temp Pulse Resp BP Pulse Ox O2 Del Method 01/21/23 11:44 97.7 F 85 16 174/78 H 94 01/21/23 11:42 97.7 F 79 16 200/84 H 100 01/21/23 08:00 97.7 F 75 16 190/71 H 100 01/21/23 08:00 89 01/21/23 08:00 97 Room Air 01/21/23 07:53 84 01/21/23 05:42 97.8 F 77 18 172/75 H 97 01/20/23 22:18 95 Room Air 01/21/23 04:00 72 01/21/23 00:00 71 01/20/23 20:00 71 01/20/23 20:00 90 17 95
--- NOTE | 2023-01-21 12:03 | PM.PNNEP ---
Progress Note: A&P Assessment and Plan (1) JEN (acute kidney injury): Code(s): N17.9 - Acute kidney failure, unspecified Status: Acute Assessment and Plan: resolved/resolving etiology not clear presumed due to bactrim use and possible prerenal factors evaluation to date: CT of A/P without kidney pathology urine electrolytes non-prerenal urine eosinophils negative CPK normal agree with trial of IVFs follow trend of repeat labs and UOP (2) Chronic kidney disease, stage 3b: Code(s): N18.32 - Chronic kidney disease, stage 3b Status: Chronic Assessment and Plan: baseline creatinine around 1.5 - 1.7mg/dl however, creatinine as been as high as 2.1mg/dl based on outpatient evaluation, due to hypertensive nephrosclerosis on sodium bicarbonate for metabolic acidosis (3) Hyperkalemia: Code(s): E87.5 - Hyperkalemia Status: Acute Assessment and Plan: slow improvement has been an issue in the past as well likely due to combo of lisinopril and bactrim thought GUADALUPE-I on hold (based on Dr. Jimenez's last office visit last month) s/p medical management follow trend of K+ repeat medical management as needed (4) Syncope: Code(s): R55 - Syncope and collapse Status: Acute Assessment and Plan: evaluation ongoing imaging (Echo, carotid dopplers...etc) reviewed ++ orthostasis initially -- better at ths time s/p IVFs follow hemodynamics brien hose in place (5) Essential hypertension: Code(s): I10 - Essential (primary) hypertension Status: Chronic Assessment and Plan: fluctuating on admission better by last reading follow trend of hemodynamics consider resuming lisinopril at lower dose (6) Dementia: Code(s): F03.90 - Unspecified dementia, unspecified severity, without behavioral disturbance, psychotic disturbance, mood disturbance, and anxiety Status: Chronic Assessment and Plan: chronic issue Will continue to follow. Subjective Date/time seen: 01/21/23 12:03 Interval history: Follow-up for acute kidney injury on chronic kidney disease and hyperkalemia. Due to her dementia, difficult to get any history from the patient; however, she does not appear in any acute distress; no other reported events overnight; renal function back to baseline with relative stability in potassium level; BP has been running higher side (since holding lisinopril). Exam Narrative: General: thin elderly female in NAD Heart: normal S1 and S2; no rub Lungs: clear to auscultation Abdomen: soft, nontender, nondistended, positive bowel sounds Extremities: no cyanosis or clubbing; no edema Skin: warm and dry Objective Data Vital Signs Vital Signs: Vital Signs Temp Pulse Resp BP Pulse Ox O2 Del Method 01/21/23 11:44 97.7 F 85 16 174/78 H 94 01/21/23 11:42 97.7 F 79 16 200/84 H 100 01/21/23 08:00 97.7 F 75 16 190/71 H 100 01/21/23 08:00 89 01/21/23 08:00 97 Room Air 01/21/23 07:53 84 01/21/23 05:42 97.8 F 77 18 172/75 H 97 01/20/23 22:18 95 Room Air 01/21/23 04:00 72 01/21/23 00:00 71 01/20/23 20:00 71 01/20/23 20:00 90 17 95 Room Air 01/20/23 19:52 96.1 F L 90 17 169/60 H 95 01/20/23 19:48 96.1 F L 86 16 184/70 H 98 01/20/23 19:47 96.1 F L 81 17 187/68 H 97 01/20/23 19:45 96.1 F L 75 17 187/68 H 97 01/20/23 17:52 84 01/20/23 17:51 84 163/76 H 100 01/20/23 16:00 91 01/20/23 13:12 90 121/59 L 99 01/20/23 13:09 86 155/64 H 99 01/20/23 13:04 98.7 F 82 17 157/52 H 99 Intake/Output Intake/Output: Intake & Output 01/18/23 01/19/23 01/20/23 01/21/23 23:59 23:59 23:59 23:59 Intake Total 1000 2220 120 Output Total 400 525 750 Balance 600 6258 -374 Meds/Results Medications: Active Medications Generic Name
[2023-01-21] MEDS: lisinopriL 20 MG TABLET PO (13:14)
[2023-01-21] MEDS: SODIUM BICARBONATE TAB 650 MG TABLET PO ×2 (13:14→16:30)
--- NOTE | 2023-01-21 13:59 | PC.NURSE ---
Cinthya MART notified of bp 210/100.
[2023-01-21 14:17] LABS: Potassium 4.9 mmol/L (3.4-5.0)
--- NOTE | 2023-01-21 15:01 | PCCCNOTE ---
On 01/21/23, the student, [Luz Maria Scott], provided care and completed [facility] documentation on this patient. I have reviewed the student's documentation and agree with the findings.
--- NOTE | 2023-01-21 15:48 | PM.IMPN ---
Progress Note: A&P Assessment and Plan (1) Syncope: Code(s): R55 - Syncope and collapse Status: Acute (2) Acute on chronic renal failure: Code(s): N17.9 - Acute kidney failure, unspecified; N18.9 - Chronic kidney disease, unspecified Status: Acute (3) Hyperkalemia: Code(s): E87.5 - Hyperkalemia Status: Acute (4) Essential hypertension: Code(s): I10 - Essential (primary) hypertension Status: Acute (5) Dementia: Code(s): F03.90 - Unspecified dementia, unspecified severity, without behavioral disturbance, psychotic disturbance, mood disturbance, and anxiety Status: Acute (6) Pulmonary nodule: Code(s): R91.1 - Solitary pulmonary nodule Status: Acute Plan The patient presented to the emergency department for evaluation after a syncopal episode while doing physical therapy in a chair. She has severe short-term memory loss and is not able to provide details surrounding event. May have been related to electrolyte abnormalities/dysrhythmia versus orthostasis. Maintaining sinus rhythm. Carotid Doppler ultrasound unremarkable. Echo relatively unremarkable. Noted to have orthostatic hypotension yesterday. Not orthostatic today, however BP is markedly elevated in the 200 systolic. Home lisinopril restarted. iV fluids have been discontinued. Appreciate Nephrology recommendations for further BP control. May in part be due to agitation/anxiety regarding hospitalization. Potassium elevated up to 6.2 on admission, likely related to Bactrim and lisinopril concurrent use. Potassium levels have improved with appropriate therapy, normalized today at 4.9. Lisinopril resumed, Bactrim discontinued. Home sodium bicarbonate resumed. Appreciate Nephrology recommendations Creatinine elevated above baseline on presentation, 2.4. Baseline appears to be 1.5-1.7. Creatinine improved to 1.7 today. IV fluids discontinued. There are small pulmonary nodules noted on CT which can be followed as an outpatient if deemed necessary; she does have a history of bilateral breast cancer. Spoke with the patient's daughter/POA via phone for 15 minutes to provide updates answer questions on patient's medications Time Spent With Patient Time: 50 minutes spent on this encounter Time with patient: Greater than 35 minutes Subjective Date/time seen: 01/21/23 15:48 Interval history: Date of service: 01/21/2023 Jennifer Negrete is an 87-year-old female with a history of hypertension, secondary hyperparathyroidism, chronic renal insufficiency, and dementia who is seen in follow-up for hyperkalemia. Patient is not able to provide any history due to her dementia. Review of Systems Review of Systems: ROS unobtainable: Yes unobtainable due to mental status Exam Narrative: General: Thin, chronically ill-appearing 87-year-old female, supine in bed, comfortable, NARD Neuro: Asleep, no focal neuro deficits noted HEENMT: normocephalic, atraumatic, EOMI, left periorbital ecchymosis, sclerae anicteric Respiratory: clear to auscultation bilaterally, nonlabored breathing Cardio: regular rate, regular rhythm with S1-S2 Abdomen: nondistended, normoactive bowel sounds, soft, nontender to palpation Extremities: no edema, erythema, or tenderness to palpation Skin: no rashes or lesions, warm and dry Psych: Confused, judgment and insight poor Objective Data Vital Signs Vital Signs: Vital Signs - 24 hr 01/20/23 16:00 01/20/23 17:51 01/20/23 17:52 Temperature Pulse Rate 91 84 84 Respiratory Rate Blood Pressure 163/76 H Pulse Oximetry 100 Oxygen Delivery 01/20/23 19:45 01/20/23 19:47 01/20/23 19:48 Temperature 96.1 F L 96.1 F L 96.1 F L Pulse Rate 75 81 86 Respiratory Rate 17 17 16 Blood Pressure 187/68 H 187/68 H 184/70 H Pulse Oximetry 97 97 98 Oxygen Delivery 01/20/23 19:52 01/20/23 20:00 01/20/23 20:00 Temperature 96.1 F L Pulse Rate 90 90 71 Re
[2023-01-21] MEDS: hydrALAZINE HCL 20 MG/ML VIAL 10 MG IV PUSH (16:28)
[2023-01-21] MEDS: CYANOCOBALAMIN 1,000 MCG TABLET 1000 MCG PO (20:13)
[2023-01-21] MEDS: amLODIPine BESYLATE 2.5 MG TABLET PO (20:13)
[2023-01-22] VITALS (8 sets, daily range): BP systolic 100–173; BP diastolic 50–80; PULSE 66–87; RESP 14; TEMP 36.8; O2SAT 97–100
[2023-01-22] MEDS: SODIUM CHLORIDE 0.9% IV 1,000 ML 75 ML IV CONT (04:11)
[2023-01-22 05:58] LABS: Anion Gap 7 mmol/L (8-16); Blood Urea Nitrogen 27 mg/dL (7-17); Calcium 9.2 mg/dL (8.4-10.2); Carbon Dioxide 23 mmol/L (22-30); Chloride 107 mmol/L (98-107); Estimated CRCL calculation 18 ml/min; Estimated Glomerular Filt Rate 31; Glucose 85 mg/dL (65-110); Potassium 4.5 mmol/L (3.4-5.0); Sodium 137 mmol/L (137-145)
[2023-01-22 06:00] LABS: Hematocrit 35.8 % (37.0-47.0); Hemoglobin 11.1 g/dL (12.0-15.0); Mean Corpuscular Hemoglobin 30.1 pg (26-34); Mean Platelet Volume 10.4 fl (7.4-10.4); Platelet Count Result 227 k/mm3 (150-375); Red Blood Count 3.69 M/mm3 (4.2-5.4); Red Cell Distribution Width 13.8 % (11.5-14.5); White Blood Count 9.8 K/mm3 (4.5-10.0)
[2023-01-22] MEDS: ACETAMINOPHEN 325 MG TABLET 650 MG PO (09:43)
[2023-01-22] MEDS: MEMANTINE HCL XR 7 MG CAP PO (09:43)
[2023-01-22] MEDS: LABETALOL HCL 50 MG TABLET PO (09:43)
[2023-01-22] MEDS: busPIRone HCL 5 MG TABLET PO (09:47)
[2023-01-22] MEDS: busPIRone HCL 2.5 MG TABLET PO (09:47)
[2023-01-22] MEDS: CITALOPRAM HYDROBROMIDE 20 MG TABLET PO (09:47)
[2023-01-22] MEDS: lisinopriL 20 MG TABLET PO (09:47)
[2023-01-22] MEDS: SODIUM BICARBONATE TAB 650 MG TABLET PO (09:47)
[2023-01-22] MEDS: LORATADINE 10 MG TABLET PO (09:48)
--- NOTE | 2023-01-22 10:38 | PM.DS ---
DS: Admitting Diagnosis Discharge Date 01/22/2023 Admitting Diagnosis Syncope DS: Discharge Diagnosis Discharge Diagnosis (1) Syncope: Code(s): R55 - Syncope and collapse Status: Acute Assessment and Plan: The patient presented to the emergency department for evaluation after a syncopal episode while doing physical therapy in a chair. She has severe short-term memory loss and was not able to provide details surrounding event. May have been related to electrolyte abnormalities/dysrhythmia versus orthostasis. She was monitored on telemetry and maintained sinus rhythm. Carotid Doppler ultrasound unremarkable. Echo relatively unremarkable. Noted to be orthostatic which resolved with IV fluid rehydration. Subsequent orthostatics negative. Home lisinopril was resumed as BP became elevated. Blood pressure stable subsequently but quite fluctuant. Will monitor BP at nursing facility and follow-up with PCP (2) Acute on chronic renal failure: Code(s): N17.9 - Acute kidney failure, unspecified; N18.9 - Chronic kidney disease, unspecified Status: Acute Assessment and Plan: Creatinine elevated above baseline on presentation, 2.4. Baseline appears to be 1.5-1.7. Creatinine levels improved with discontinuation of Bactrim and IV fluid rehydration. Creatinine back to baseline at time of discharge. (3) Hyperkalemia: Code(s): E87.5 - Hyperkalemia Status: Acute Assessment and Plan: Potassium elevated up to 6.2 on admission, likely related to Bactrim and lisinopril concurrent use. Potassium levels improved with appropriate intervention and eventually normalized. Bactrim was discontinued and should be avoided in the future if possible. Lisinopril was resumed. Home sodium bicarbonate was recently discontinued due to BP elevation. Restarted at lower dose, 325 mg b.i.d. to help manage potassium levels. Patient seen in consultation by nephrology during admission (4) Essential hypertension: Code(s): I10 - Essential (primary) hypertension Status: Acute Assessment and Plan: See plan as above. Continue lisinopril, labetalol, amlodipine (5) Dementia: Code(s): F03.90 - Unspecified dementia, unspecified severity, without behavioral disturbance, psychotic disturbance, mood disturbance, and anxiety Status: Chronic Assessment and Plan: Remained at baseline (6) Pulmonary nodule: Code(s): R91.1 - Solitary pulmonary nodule Status: Acute Assessment and Plan: There are small pulmonary nodules noted on CT which can be followed as an outpatient if deemed necessary; she does have a history of bilateral breast cancer. Follow-up with PCP DS: Summary Hospital Course Hospital Course: Jennifer Negrete is an 87-year-old female with a history of hypertension, secondary hyperparathyroidism, chronic renal insufficiency, and dementia who presented to the emergency department on 01/19/2023 after an unresponsive episode at her nursing facility. On presentation to the ED, her blood pressure was 128/54, additional vital signs stable, potassium 6.2, BUN 44, creatinine 2.4, head CT with no acute findings. She was admitted to the hospitalist service for further evaluation and management was seen in consultation by nephrology. Please see above for further details. Her potassium was corrected and remained stable. Bactrim discontinued and should be avoided in the future if possible. Sodium bicarb was restarted and dose was reduced. She was rehydrated with IV fluids and renal function returned to baseline. Her blood pressure will be monitored at her nursing facility and she will follow-up with her PCP in 1 week. She will also for repeat BMP in 1 week to monitor potassium and renal function. She was discharged in hemodynamically stable condition on 01/22/2023. Time Spent with Patient Time attestation: Total time spent providing and/or coordinating dis
[2023-01-22 12:03] LABS: SARS-CoV-2 RNA PCR Negative (Negative)
[2023-01-25 18:32] LABS: Complement Total CH50 >60 U/mL (31-60)
[2023-01-26 15:18] LABS: Chloride Rand Ur 36 mmol/L (32-290); Chloride/Creatinine Rand Ur 157 (38-318); Creatinine Random Urine 23 mg/dL (20-275)
== END 2023-01-22 15:20 ==
LOC: ANHED 14:24 → ANH2MED 17:29
PROVIDERS: Physician Assistant; Admitting Provider Internal Medicine; Emergency Provider Emergency Medicine; PCP Nurse Practitioner Family; Visit Provider Physician Assistant
DX: R55 Syncope and collapse (principal); R40.4 Transient alteration of awareness; S09.90XA Unspecified injury of head, initial encounter; W19.XXXA Unspecified fall, initial encounter; I12.9 Hypertensive chronic kidney disease with stage 1 through stage 4 chronic kidney disease, or unspecified chronic kidney disease; N18.4 Chronic kidney disease, stage 4 (severe); E87.5 Hyperkalemia; Z20.822 Contact with and (suspected) exposure to COVID-19; F03.90 Unspecified dementia, unspecified severity, without behavioral disturbance, psychotic disturbance, mood disturbance, and anxiety; R15.9 Full incontinence of feces; K57.90 Diverticulosis of intestine, part unspecified, without perforation or abscess without bleeding; I95.9 Hypotension, unspecified; M54.2 Cervicalgia; R91.8 Other nonspecific abnormal finding of lung field; I45.10 Unspecified right bundle-branch block; R32 Unspecified urinary incontinence; I08.0 Rheumatic disorders of both mitral and aortic valves; M81.0 Age-related osteoporosis without current pathological fracture; M15.9 Polyosteoarthritis, unspecified; N25.81 Secondary hyperparathyroidism of renal origin; M47.812 Spondylosis without myelopathy or radiculopathy, cervical region; Z85.3 Personal history of malignant neoplasm of breast; Z79.1 Long term (current) use of non-steroidal anti-inflammatories (NSAID); Z79.899 Other long term (current) drug therapy; Z82.49 Family history of ischemic heart disease and other diseases of the circulatory system
CPT/HCPCS: 36415; 70450; 71045; 72125; 74176; 80048; 80053; 81001; 82436; 82550; 82570; 82948; 83605; 83690; 83735; 83880; 84132; 84133; 84156; 84300; 84484; 85025; 85027; 85610; 85652; 85730; 85999; 86140; 86160; 86162; 87635; 93005; 93306; 93880; 94640; 96361; 96374; 96375; 96376; 99285; A9270; G0378; J0360; J0612; J1815; J7030; J7120

== ENCOUNTER 2023-02-06 13:04 | Inpatient (IN) | payer MEDICARE, SELFPAY ==
[2023-02-06] VITALS (24 sets, daily range): BP systolic 110–182; BP diastolic 52–86; PULSE 63–88; RESP 9–24; TEMP 35.7–36.4; O2SAT 98–100; BMI 21.2
--- NOTE | ~2023-02-06 | CT_ITS ---
EXAMINATION: CT abdomen pelvis w con DATE: 02/06/2023 15:38 INDICATION: n/v/d TECHNIQUE: Computed tomography (CT) of the abdomen and pelvis was performed with 100 mL Omnipaque-350 intravenous contrast. Automated exposure control and iterative reconstruction technique were employe d. The dose-length product was 549.53 mGy-cm. COMPARISON: 01/19/2023. FINDINGS: Lower thorax: Cardiomegaly. Interval resolution or redistribution of the small pericardial fluid. Sen escent/emphysematous change. Stable pulmonary nodules. Liver: Normal. Biliary/Gallbladder: Gallbladder is normal. No bile duct dilation. Pancreas: Mild atrophy. Spleen: Normal. Adrenals:No mass. Kidneys: No suspicious mass, obstructing calcification, or hydronephrosis. Bilateral cortical thinnin g. GI tract: Moderate hiatal hernia and distal esophageal wall edema. Small distal esophageal diverticul um. No small or large bowel dilation. Normal appendix. Diverticulosis without diverticulitis. Mesentery/Peritoneum: No ascites, mass, or free air. Retroperitoneum: No mass. Atherosclerotic abdominal aortic and/or arterial calcifications. Pelvis: Pelvic organs are within normal limits. Soft Tissues: Soft tissues and body wall unremarkable. Bones: No acute osseous finding. Partially visualized, uncomplicated appearing left hip arthroplasty hardware. IMPRESSION: Moderate esophagitis. Otherwise, no acute finding detected in the abdomen or pelvis. Stable pulmonary nodules, requiring no additional workup unless the patient is at high risk, in which case consider an optional low dose noncontrast CT of the chest in one year. Reviewed, dictated and finalized at location K.
--- NOTE | ~2023-02-06 | XR_ITS ---
EXAMINATION: XR chest 1V portable Exam Date/Time: 02/06/2023 15:00 CDT HISTORY: fatigue, weakness Comparison: 01/19/2023. RESULT: Lines, tubes, and devices: Partially visualized, uncomplicated appearing right shoulder arthroplasty . Lungs and pleura: Senescent and emphysematous change. Calcified granulomas and hilar nodes. No focal consolidation. Cardiomediastinal silhouette: Stable cardia megaly and aortic unfolding/ectasia. Other: No acute osseous or upper abdominal finding. IMPRESSION: No acute cardiopulmonary process. Reviewed, dictated and finalized at location K.
--- NOTE | ~2023-02-06 | XR_ITS ---
EXAMINATION: XR chest 1V portable DATE: 02/07/2023 18:39 INDICATION: Loss of consciousness. TECHNIQUE: A single frontal view of the chest was obtained. COMPARISON: Chest single view 02/06/2023, CT abdomen and pelvis 02/06/2023 FINDINGS: There is an interstitial pattern in the lungs. No pleural effusion or pneumothorax. Cardiom egaly is noted. Calcified mediastinal lymph nodes are consistent with old granulomatous disease. Ther e are surgical clips in left axilla. There is a right shoulder arthroplasty. 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 IMPRESSION: 1. Interstitial pattern in the lungs, which may be mild pulmonary edema and/or mild chronic lung dise ase. 2. Cardiomegaly. Reviewed, dictated and finalized at location E. IMPRESSION: 1. Interstitial pattern in the lungs, which may be mild pulmonary edema and/or mild chronic lung disease. 2. Cardiomegaly.
--- NOTE | ~2023-02-06 | XR_ITS ---
Portable chest x-ray Comparison: 02/07/2023 Clinical History: Leukocytosis Findings: Lungs are clear, without focal consolidation or pleural effusion. Probable COPD. Cardiome diastinal silhouette is stable. Right shoulder arthroplasty is unchanged. Impression: Probable COPD. Clear lungs. Reviewed, dictated and finalized at location . Impression: Probable COPD. Clear lungs.
--- NOTE | 2023-02-06 13:13 | ECG_ITS ---
Measurements Intervals [place] Rate: 69 P: 58 [place]: 151 QRS: 64 QRSD: 127 T: 43 QT: 402 QTc: 432 Interpretive Statements SINUS RHYTHM RIGHT BUNDLE BRANCH BLOCK ABNORMAL ECG COMPARED TO ECG 01/19/2023 13:43:12 NO SIGNIFICANT CHANGES Electronically Signed On 02-06-2023 18:44:55 CDT by Sascha Newman D.O.
[2023-02-06 14:47] LABS: Basophils Percent Auto 0.2 % (0.2-1.2); Eosinophils Percent Auto 0.5 % (0-4.4); Hematocrit 32.1 % (37.0-47.0); Hemoglobin 9.8 g/dL (12.0-15.0); Immature Granulocyte Absolute 0.04 K/mm3 (0.00-0.031); Immature Granulocyte Percent A 0.5 % (0-0.5); Lymphocytes Absolute Auto 1.11 K/mm3 (0.9-3.2); Lymphocytes Percent Auto 13.2 % (18.3-44.2); Mean Corpuscular HGB Conc 30.5 g/dl (32-36); Mean Corpuscular Hemoglobin 30.3 pg (26-34); Mean Corpuscular Volume 99.4 fl (80-100); Mean Platelet Volume 10.5 fl (7.4-10.4); Monocytes Absolute Auto 0.5 K/mm3 (0.1-0.6); Neutrophils Absolute Auto 6.7 K/mm3 (1.3-6.7); Neutrophils Percent Auto 79.6 % (45.5-73.1); Platelet Count Result 238 k/mm3 (150-375); Red Blood Count 3.23 M/mm3 (4.2-5.4); Red Cell Distribution Width 13.7 % (11.5-14.5); White Blood Count 8.4 K/mm3 (4.5-10.0)
[2023-02-06 15:00] LABS: Alanine Aminotransferase 19 U/L (6-35); Albumin Level 3.9 g/dL (3.5-5.1); Alkaline Phosphatase 107 U/L (38-126); Anion Gap 8 mmol/L (8-16); Aspartate Amino Transferase 25 U/L (14-36); Bilirubin,Total 0.3 mg/dL (0.2-1.3); Blood Urea Nitrogen 34 mg/dL (7-17); Calcium 8.9 mg/dL (8.4-10.2); Carbon Dioxide 23 mmol/L (22-30); Chloride 104 mmol/L (98-107); Estimated CRCL calculation 17 ml/min; Estimated Glomerular Filt Rate 31; Glucose 106 mg/dL (65-110); Lipase 103 U/L (23-300); Potassium 5.9 mmol/L (3.4-5.0); Sodium 135 mmol/L (137-145)
--- NOTE | 2023-02-06 15:06 | ED.NAVMDI ---
HPI - Nausea/Vomiting/Diarrhea General Chief complaint: Nausea/Vomiting/Diarrhea <Jessica Garrido PA-C - Last Filed: 02/06/23 20:13> Stated complaint: N/V <Jessica Garrido PA-C - Last Filed: 02/06/23 20:13> Time Seen by Provider: 02/06/23 13:47 <Jessica Garrido PA-C - Last Filed: 02/06/23 20:13> History of Present Illness HPI Narrative: 88-year-old female with a history of dementia, CKD stage IV, secondary hyperparathyroidism, hypertension reports for evaluation from at [facility] with her daughter for signs of dehydration . Patient's daughter states yesterday she received a phone call from the assisted stating the patient seemed fatigued and was not eating her dinner. The daughter states she went to visit the patient at lunch and she seemed normal, however eating her lunch and drinking a body armor, the patient became extremely fatigued. The patient's daughter also states the patient was dry heaving today and had 1 episode of diarrhea prior to arrival. She denies abdominal pain, chest pain, shortness of breath, back pain, urinary complaints, fever, cough or congestion, dysuria. Patient's daughter states that the patient is at her normal mental baseline and does not seem altered. Patient normally expect this she has a UTI and is dehydrated. <Jessica Garrido PA-C - Last Filed: 02/06/23 20:13> Related Data Home medications: Home Medications Medication Instructions Recorded Confirmed labetalol 100 mg tablet 50 mg PO BID 08/12/20 02/06/23 acetaminophen 650 mg 650 mg PO Q12H 08/19/22 02/06/23 tablet,extended release cetirizine 10 mg tablet 10 mg PO DAILY 08/19/22 02/06/23 citalopram 20 mg tablet (Celexa) 20 mg PO DAILY 08/19/22 02/06/23 amlodipine 5 mg tablet 2.5 mg PO QHS 01/19/23 02/06/23 buspirone 5 mg tablet 7.5 mg PO BID 01/19/23 02/06/23 memantine 7 mg capsule 7 mg PO DAILY 01/19/23 02/06/23 sprinkle,extended release 24hr ondansetron 4 mg disintegrating 4 mg PO Q6H PRN Nausea 01/19/23 02/06/23 tablet polyethylene glycol 3350 17 gram 17 g PO BID PRN Constipation 01/19/23 02/06/23 oral powder packet sennosides 8.6 mg tablet (senna) 8.6 mg PO BID PRN Constipation 01/19/23 02/06/23 <Jessica Garrido PA-C - Last Filed: 02/06/23 20:13> Allergies/Adverse reactions: Allergies Allergy/AdvReac Type Severity Reaction Status Date / Time NSAIDS (Non-Steroidal AdvReac Severe contraindicated. Verified 01/17/23 13:52 Anti-Inflamma CKD 4 <DARIN Noonan Last Filed: 02/06/23 20:13> Review of Systems Review of Systems: CONSTITUTIONAL: Denies fever, chills EYES: Denies visual changes, redness, or discharge. ENT: Denies rhinorrhea, congestion, sore throat, or otalgia. CARDIOVASCULAR: Denies chest pain, palpitations, or edema. RESPIRATORY: Denies cough or dyspnea. GASTROINTESTINAL: See HPI GENITOURINARY: Denies dysuria or hematuria. SKIN: Denies rash or itching. MUSCULOSKELETAL: Denies back pain, joint pain, or myalgia. NEUROLOGIC: Denies headache, numbness, dizziness, or weakness. PSYCHIATRIC: Denies anxiety or depression. <Jessica Garrido PA-C - Last Filed: 02/06/23 20:13> [facility] Past Medical History Medical History: Medical History Age-related osteoporosis without current pathological fracture Breast cancer Chronic renal insufficiency Dementia Essential hypertension Postmenopausal 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 (of renal origin) (05/03/19) <DARIN Noonan Last Filed: 02/06/23 20:13> Surgical History Surgical History: Surgical History History of bilateral mastectomy History of left hip replacement History of shoulder replacement <DARIN Noonan Last Filed: 02/06/23 20:13> Family History Family History: Family History (Reviewed
[2023-02-06 15:10] LABS: Appearance Urine Clear (Clear); Bacteria Urine None Seen /hpf; Bilirubin Urine Negative (Negative); Blood Urine Trace (Negative); Color Urine Yellow (Yellow); Glucose Urine UA Negative (Negative); Ketones Urine Negative (Negative); Leukocyte Esterase Ur Negative LEU/UL (Negative); Need Manual Microscopic Reviewed; Nitrate Urine Negative (Negative); Protein Urine 1+ mg/dL (Negative); Specific Grav Ur 1.018 (1.001-1.035); Squamous Epithelial Cell Urine Occasional /hpf (Few); Urobilinogen Urine 0.2 mg/dL (<2.0); pH Urine 5.5 (5.0-9.0)
[2023-02-06 15:20] LABS: Add Urine Microscopic? YES
[2023-02-06 15:36] LABS: Magnesium 1.9 mg/dL (1.6-2.3)
[2023-02-06 15:36] LABS: Lactic Acid Reflex 1.4 mmol/L (0.7-2.0)
[2023-02-06] MEDS: ALBUTEROL SULFATE NEB 2.5 MG/3 ML INH 5 MG INHALATION (15:40)
[2023-02-06 15:41] LABS: Influenza A QL RT-PCR Negative (Negative); Influenza B QL RT-PCR Negative (Negative); SARS-CoV-2 RNA PCR Negative (Negative)
[2023-02-06] MEDS: DEXTROSE 50% 25 GM/50 ML SYRINGE IV PUSH (15:43)
[2023-02-06] MEDS: SODIUM CHLORIDE 0.9% IV 1,000 ML 999 ML IV CONT (15:43)
[2023-02-06] MEDS: ONDANSETRON INJ 4 MG/2 ML VIAL IV PUSH (15:43)
[2023-02-06] MEDS: INSULIN HUMAN REGULAR (*BKC) 100 UNITS/ML 10 UNITS IV PUSH (15:45)
[2023-02-06 15:49] LABS: Troponin I < 0.012 ng/mL (0.000-0.034)
[2023-02-06] MEDS: FUROSEMIDE INJ 40 MG/4 ML VIAL 20 MG IV PUSH (15:49)
--- NOTE | 2023-02-06 17:52 | PM.IMHP ---
H&P: HPI History of Present Illness Date/Time: 02/06/23 17:52 Chief Complaint: Fatigue while eating, no pain, one episode of diarrhea. Narrative: This is an 88 year old female patient with history of dementia who presents to ER with complaint of fatigue while eating with concern for dehydration and UTI which are usual causes for fatigue for this patient. Daughter was eating with patient and witness this unusual behavior. The patient herself has no current complaints and wants to go back home. ROS/HPI based on review of records and family consultation. Review of Systems Review of Systems: ROS unobtainable: Yes unobtainable due to mental status (chronic dementia) PMFSH Past Medical History Medical History Age-related osteoporosis without current pathological fracture Breast cancer Chronic renal insufficiency Dementia Essential hypertension Postmenopausal 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 (of renal origin) (05/03/19) Surgical History Surgical History History of bilateral mastectomy History of left hip replacement History of shoulder replacement Family History Family History Father Family history of suicide Family history of mental disorder Depression Mother Family history of malignant neoplasm of breast in first degree relative Sibling Family history of obesity Family history of mental disorder Depression Hypertension Family history of cardiovascular disease Family history of Alzheimer's disease Other Family history of malignant neoplasm Social History Social History Social History: Code status: Modified code, meds only. Smoking status: Never smoker Alcohol intake: never Substance use: never Substance use type: does not use Lack of Transportation: No Lack of Food: Never True Current Housing: I Have Housing Concerned About Future Housing: No Difficulty Paying Gas/Electric Bills: No Difficulty Paying for Meds: No Currently Unemployed: No Education: Grade School Difficulty w/ Childcare or Family Care: No Living arrangements: assisted living Additional living arrangements comments: [facility] memory care since August 2022. Spiritual care concerns: No Meds Home Medications and Allergies Home Medications Medication Instructions Recorded Confirmed Type mecobalamin (vitamin B12) 1,000 1,000 mcg PO DAILY #90 tabs 11/06/20 07/09/23 Rx mcg chewable tablet (B12 Active) labetalol 100 mg tablet 50 mg PO BID 08/12/20 02/06/23 History acetaminophen 650 mg 650 mg PO Q12H 08/19/22 02/06/23 History tablet,extended release cetirizine 10 mg tablet 10 mg PO DAILY 08/19/22 02/06/23 History citalopram 20 mg tablet (Celexa) 20 mg PO DAILY 08/19/22 02/06/23 History cholecalciferol (vitamin D3) 25 25 mcg PO .COMPLEX #24 caps 09/01/22 02/06/23 Rx mcg (1,000 unit) capsule lisinopril 40 mg tablet 40 mg PO DAILY #90 tabs 09/29/22 02/06/23 Rx amlodipine 5 mg tablet 2.5 mg PO QHS 01/19/23 02/06/23 History buspirone 5 mg tablet 7.5 mg PO BID 01/19/23 02/06/23 History memantine 7 mg capsule 7 mg PO DAILY 01/19/23 02/06/23 History sprinkle,extended release 24hr ondansetron 4 mg disintegrating 4 mg PO Q6H PRN Nausea 01/19/23 02/06/23 History tablet polyethylene glycol 3350 17 gram 17 g PO BID PRN Constipation 01/19/23 02/06/23 History oral powder packet sennosides 8.6 mg tablet (senna) 8.6 mg PO BID PRN Constipation 01/19/23 02/06/23 History sodium bicarbonate 650 mg tablet 325 mg PO BID #30 tabs 01/22/23 02/06/23 Rx Allergies Allergy/AdvReac Type Severity Reaction Status Date / Time NSAIDS (Non-Steroidal AdvReac Severe contraindicated. Verified 01/17/23 13:52 Anti-Inflamma CKD 4 Vi
--- NOTE | 2023-02-06 18:53 | ADMGEN ---
This patient, Jennifer Negrete, was admitted to 3 [facility] Surg Room 306-01. Patient/family oriented to hospital policies and general routines including ID bracelet, bed and alarms, visiting hours, pain management, procedures, bathroom and other care routines, personal items, smoking policy, room service/diet, and visiting hours. Report received from Lonny TARIQ in ER Information on how to activate the Rapid Response Team has been discussed. Patient/Family are encouraged to report perceived risks to care and to ask questions if they do not understand what they are told or what they should do.
[2023-02-06 20:21] LABS: Anion Gap 6 mmol/L (8-16); Blood Urea Nitrogen 38 mg/dL (7-17); Calcium 8.9 mg/dL (8.4-10.2); Carbon Dioxide 22 mmol/L (22-30); Chloride 102 mmol/L (98-107); Estimated CRCL calculation 20 ml/min; Estimated Glomerular Filt Rate 33; Glucose 160 mg/dL (65-110); Potassium 4.5 mmol/L (3.4-5.0); Sodium 130 mmol/L (137-145)
[2023-02-06] MEDS: amLODIPine BESYLATE 2.5 MG TABLET PO (21:23)
[2023-02-06] MEDS: ACETAMINOPHEN 325 MG TABLET 650 MG PO (21:23)
[2023-02-06] MEDS: LABETALOL HCL 50 MG TABLET PO (21:23)
[2023-02-06] MEDS: busPIRone HCL 2.5 MG TABLET 7.5 MG PO (21:23)
[2023-02-06] MEDS: SODIUM BICARBONATE TAB 325 MG TABLET PO (21:24)
[2023-02-07] VITALS (16 sets, daily range): BP systolic 59–194; BP diastolic 34–75; PULSE 61–89; RESP 12–16; TEMP 35.8–36.4; O2SAT 94–100; BMI 21.2
[2023-02-07 07:43] LABS: Hematocrit 30.9 % (37.0-47.0); Hemoglobin 9.9 g/dL (12.0-15.0); Mean Corpuscular Volume 93.6 fl (80-100); Mean Platelet Volume 10.4 fl (7.4-10.4); Platelet Count Result 232 k/mm3 (150-375); Red Cell Distribution Width 13.8 % (11.5-14.5); White Blood Count 7.6 K/mm3 (4.5-10.0)
[2023-02-07 07:59] LABS: Anion Gap 7 mmol/L (8-16); Blood Urea Nitrogen 32 mg/dL (7-17); Carbon Dioxide 22 mmol/L (22-30); Chloride 104 mmol/L (98-107); Estimated CRCL calculation 20 ml/min; Estimated Glomerular Filt Rate 33; Glucose 98 mg/dL (65-110); Potassium 4.5 mmol/L (3.4-5.0); Sodium 133 mmol/L (137-145)
[2023-02-07] MEDS: hydrALAZINE HCL 20 MG/ML VIAL 10 MG IV PUSH (08:14)
[2023-02-07] MEDS: ENOXAPARIN 30 MG/0.3 ML SYRINGE SUB-Q (08:15)
[2023-02-07] MEDS: busPIRone HCL 2.5 MG TABLET 7.5 MG PO ×2 (08:15→17:41)
[2023-02-07] MEDS: ACETAMINOPHEN 325 MG TABLET 650 MG PO (08:15)
[2023-02-07] MEDS: MEMANTINE HCL XR 7 MG CAP PO (08:15)
[2023-02-07] MEDS: LORATADINE 10 MG TABLET PO (08:15)
[2023-02-07] MEDS: LABETALOL HCL 50 MG TABLET PO (08:16)
[2023-02-07] MEDS: SODIUM BICARBONATE TAB 325 MG TABLET PO ×2 (08:16→17:42)
[2023-02-07] MEDS: CITALOPRAM HYDROBROMIDE 20 MG TABLET PO (08:16)
[2023-02-07] MEDS: CHOLECALCIFEROL 1,000 UNITS TABLET 1000 UNITS PO (08:17)
[2023-02-07] MEDS: CYANOCOBALAMIN 1,000 MCG TABLET 1000 MCG PO (08:17)
--- NOTE | 2023-02-07 10:07 | PM.IMPN ---
Progress Note: A&P Assessment and Plan (1) Hyperkalemia: Code(s): E87.5 - Hyperkalemia Status: Acute Assessment and Plan: initial potassium 5.9 without symptoms he or significant EKG changes. Treatment received in the emergency department and value has decreased to 4.5. Nephrology has been consulted. (2) Acute kidney injury superimposed on chronic kidney disease: Code(s): N17.9 - Acute kidney failure, unspecified; N18.9 - Chronic kidney disease, unspecified Status: Acute Assessment and Plan: Possible dehydration related, UA indicative of UTI culture pending. Patient received IV fluid bolus in the emergency department. Initiate IV fluids continuous infusion. Lisinopril held. Appreciate Nephrology consultation and recommendations. (3) Dehydration: Code(s): E86.0 - Dehydration Status: Acute Assessment and Plan: See above (4) Acute UTI: Code(s): N39.0 - Urinary tract infection, site not specified Status: Acute Assessment and Plan: patient receiving IV ceftriaxone, follow urine culture. (5) Dementia: Code(s): F03.90 - Unspecified dementia, unspecified severity, without behavioral disturbance, psychotic disturbance, mood disturbance, and anxiety Status: Chronic Assessment and Plan: Dementia is advanced stages patient is oriented usually only to self possibly place. ROS and HPI supplemented by patient's daughter on admission. Review of medical records to obtain further information as patient does not make much sense when speaking with. She attempts to be conversant and is very pleasant but she does not remember answers to most questions. (6) Hypertensive kidney disease, stage IV: Code(s): I12.9 - Hypertensive chronic kidney disease with stage 1 through stage 4 chronic kidney disease, or unspecified chronic kidney disease; N18.4 - Chronic kidney disease, stage 4 (severe) Status: Acute Assessment and Plan: Lisinopril held due to JEN on CKD. Continue amlodipine. Episode of hypertension noted this morning, treated with IV hydralazine. Plan Nephrology consult, appreciate any recommendations. Gentle rehydration. Treat UTI. [facility] OK by Nephrology. Time Spent With Patient Time with patient: 25 - 35 minutes Subjective Date/time seen: 02/07/23 10:07 Interval history: This is an 88-year-old female patient admitted to the hospital for dehydration fatigue and UTI. She was also noted to have hyperkalemia he in the setting of CKD stage 4. Patient has had numerous admissions for same cluster of complaints. She received IV insulin, IV dextrose, IV furosemide and sodium bicarbonate bringing potassium from 5.9 to 4.5. Patient never had chest pain that was reported. Overnight patient had no acute complaints. Nephrology to consult due to CKD and hyperkalemia. Review of Systems Review of Systems: ROS unobtainable: Yes unobtainable due to mental status (severe dementia) Exam Narrative: GENERAL: Patient resting comfortably in exam bed.? She is pleasant and conversational.? She is well-appearing and in no acute distress. HEAD: Normocephalic, atraumatic EYES: PERRLA, EOMI ENT: Nares clear.? Mucous membranes moist.? Oropharynx without tonsillar hypertrophy exudate or other lesions. NECK: Supple.? No nuchal rigidity.? Negative Brudzinski CHEST:? No respiratory distress. Clear to auscultation, no adventitious breath sounds. HEART: Regular rate and rhythm.? No murmur heard.? Normal peripheral pulses. ABDOMEN: Soft, nontender, normal active bowel sounds.? No CVA tenderness. EXTREMITIES: Normal range of motion.? No edema. SKIN: Healing ecchymosis to the left thigh due to a prior fall.? Full range of motion of all extremities without tenderness. NEURO: No focal deficits.? Alert and oriented x2, which is baseline.? Cranial nerves II through XII intact.? Strength 5/5 in BUE and BLE.? Sensatio
--- NOTE | 2023-02-07 10:30 | PM.CNNEP ---
Assessment and Plan Assessment and plan (1) Hyperkalemia: Code(s): E87.5 - Hyperkalemia Status: Acute Assessment and Plan: chronic issue both outpatient and with recent inpatient hospitalization s/p medical management with improvement noted given this recurrent issue, would hold GUADALUPE-I/ARB therapy indefinitely for now the option would be start her on chronic lokelma/veltassa therapy if GUADALUPE-I/ARB needs to be continued follow repeat potassium levels (2) Chronic kidney disease, stage 3b: Code(s): N18.32 - Chronic kidney disease, stage 3b Status: Chronic Assessment and Plan: baseline creatinine around 1.5 - 1.7mg/dl however, creatinine as been as high as 2.1mg/dl based on outpatient evaluation, due to hypertensive nephrosclerosis on sodium bicarbonate for metabolic acidosis (3) Essential hypertension: Code(s): I10 - Essential (primary) hypertension Status: Chronic Assessment and Plan: elevated at this time off lisinopril due to #1 suspect may need another agent other option is to titrate amlodipine and labetalol follow trend of hemodynamics (4) Generalized weakness: Code(s): R53.1 - Weakness Status: Acute Assessment and Plan: etiology not clear due to poor oral intake, relative dehydration, possible UTI? continue supportive therapy (5) Dementia: Code(s): F03.90 - Unspecified dementia, unspecified severity, without behavioral disturbance, psychotic disturbance, mood disturbance, and anxiety Status: Chronic Assessment and Plan: Chronic and stable I will continue to follow the patient with you and make further recommendations as needed. Thank you for allowing me to participate in the care of this patient. History of Present Illness Reason for Consult Consult date: 02/07/23 Reason for consult: chronic renal failure and hyperkalemia Chief Complaint Chief complaint: Hyperkalemia, abnormal urinalysis History of Present Illness Narrative: Most of the information I have obtained is from review of the electronic medical record as well as discussion with the physician/nurses involved in the patient's care as is difficult to get a full and complete history from the patient due to her significant/severe dementia. Patient is an 88-year-old female with a past medical history as outlined below who presented to [facility] Emergency Room from her nursing facility for further evaluation of a generalized weakness and fatigue. Apparently, the patient's daughter received a call from her nursing facility stating that patient seemed to be more fatigued than usual and was not eating as well as she had previously. The daughter went to see the patient who seemed to be at her baseline but she did notice that when she was eating her lunch she seen more fatigued just by doing this simple activity. Furthermore, she apparently had in some dry heaves and reportedly loose bowel movements. She reported no complaints of chest pain, shortness of breath, abdominal pain, dysuria, urinary incontinence, fever, chills, cough, congestion, or any other subjective symptoms. Nevertheless, given the patient's fatigue just with attempted eating and drinking, she brought her to the ER for further assessment. Workup and evaluation in the emergency room demonstrated the patient to be hemodynamically stable and in no acute distress. Her mentation, despite her baseline dementia, apparently seemed stable and was confirmed with her daughter and family. Routine blood test demonstrated labs consistent with her known history of chronic kidney disease although her potassium was somewhat elevated at 5.9. Her CBC did not demonstrate any significant leukocytosis but did show relative anemia which was also at her baseline. Chest x-ray did not demonstrate any acute abnormalities and a subsequent CT scan of the abdomen pelvis demonstrated moderate esophagitis
[2023-02-07] MEDS: SODIUM CHLORIDE 0.9% IV 1,000 ML 55 ML IV CONT ×2 (10:59→19:53)
--- NOTE | 2023-02-07 18:25 | ECG_ITS ---
Measurements Intervals [place] Rate: 75 P: 56 CA: 145 QRS: 75 QRSD: 133 T: 39 QT: 433 QTc: 487 Interpretive Statements SINUS RHYTHM RIGHT BUNDLE BRANCH BLOCK MINIMAL Q WAVES- ANTEROLATERAL LEADS BASELINE ARTIFACT- I, II, III, AVR, AVL, AVF, V4 ABNORMAL ECG COMPARED TO ECG 02/06/2023 13:17:22 NO SIGNIFICANT CHANGES Electronically Signed On 02-07-2023 21:12:55 CDT by Sascha Newman D.O.
--- NOTE | 2023-02-07 18:38 | PM.EVENT ---
Event Note Event Note Event Note: Nima estrada called overhead: 02/07/2023 at 18:02 Arrived to bedside: 18:03 S: 88-year-old female patient found supine on the floor with 2 EMS at the patient's side. Nurse and tech were present in the room. According to CLEAT MAKER, patient had birthday cake when she started to feel as though she had to have a bowel movement. Patient was assisted to the bathroom and was given privacy. Several minutes thereafter the patient opened the door and when the CLEAT MAKER went to meet her the patient was pale and starting to fall forward. CLEAT MAKER was able to catch the patient and lower her to the ground. Pulse was unable to be felt but she came to before compressions were started. She complained of nausea and had an episode of emesis shortly thereafter. Patient was moved back to bed with a Amanda lift and blood pressure at that time was in the 70s over 50s. Patient unable to give much history at this time. O: Ill-appearing in the semi-Hairston position in bed. She is pale with cool, diaphoretic skin. Regular rate and rhythm. Respirations appear nonlabored, lung sounds a bit coarse anteriorly and at the flanks. Abdomen is soft and nondistended with mild tenderness to palpation over the suprapubic region. No guarding or rebound tenderness. No edema. Alert to name, did not answer any other orientation questions due to ongoing emesis. A/P: Severe vasovagal episode with hypotension. Blood pressures improved after about 20 minutes with IV fluid boluses. Nurses were in frequent contact with the patient's daughter (her [id number]) who indicated that the patient is a DNR/DNI and she would not want a central line or vasopressors. IV fluids to be continued. EKG did not show any acute ST segment changes. Labs are pending. Patient seen and examined independently. S:88yo female with dementia and HTN here for fatigue. Nima estrada called. BRITTNY Reyes was already in the room. Patient was a modified code but dtr (POA) was reached and said patient is DNR and no medications either. Patient was arousable and had n/v. SBP 40's but slowly improved. IV fluids started. O: AF/ HoTN. pale/villareal appearing lying semi-recumbent. Mildly coarse BS anteriorly. RRR. Soft, NT. no pedal edema. Arouses. mumbles answers A/P: Severe vasovagal episode. HoTN. Lactic acidosis related to the HoTN. Dementia. HTN. CKD Agree with the SHAWANDA's evaluation, assessment and plan. Discussed with SHAWANDA. Continue IV fluids. Continue close observation. Family at bedside. A total of 30+ minutes critical care time was spent in attention of this patient. <Kat Reyes PA-C - Last Filed: 02/08/23 17:43> Nima estrada called overhead: 02/07/2023 at 18:02 Arrived to bedside: 18:03 Patient was supine on the floor with 2 EMS at the patient's side. Nurse and tech were present in the room. According to CLEAT MAKER, the patient had some birthday cake when she started to feel as though she had to have a bowel movement. Patient was assisted to the bathroom and was given privacy. Several minutes thereafter the patient opened the door and when the CLEAT MAKER went to meet her the patient was pale and starting to fall forward. CLEAT MAKER was able to catch the patient and lower her to the ground. Pulse was unable to be felt but she came to before compressions were started. She complained of nausea and had an episode of emesis shortly thereafter. Patient was moved back to bed with a Amanda lift and blood pressure at that time was in the 70s over 50s. IV fluid bolus started and within about 20 minutes her blood pressures started to improve to the 90s systolic. She had multiple other episodes of emesis during that time period. Telemetry was reviewed and it does appear that she became briefly bradycardic prior to this episode. No pauses or dysrhythmias were obvious on telemetry. EKG showed a sinus rhythm with right bundle branch block and no ST segment deviations with normal intervals. Patient continues to complain of nausea and generalized malaise. She denies c
[2023-02-07 18:41] LABS: Basophils Percent Auto 0.4 % (0.2-1.2); Eosinophils Absolute Auto 0.1 K/mm3 (0-0.3); Eosinophils Percent Auto 1.7 % (0-4.4); Hematocrit 32.1 % (37.0-47.0); Immature Granulocyte Absolute 0.05 K/mm3 (0.00-0.031); Immature Granulocyte Percent A 0.6 % (0-0.5); Lymphocytes Absolute Auto 2.86 K/mm3 (0.9-3.2); Lymphocytes Percent Auto 35.3 % (18.3-44.2); Mean Corpuscular HGB Conc 31.2 g/dl (32-36); Mean Corpuscular Hemoglobin 30.7 pg (26-34); Mean Corpuscular Volume 98.5 fl (80-100); Mean Platelet Volume 10.3 fl (7.4-10.4); Monocytes Absolute Auto 0.6 K/mm3 (0.1-0.6); Monocytes Percent Auto 7.3 % (2.6-8.5); Neutrophils Absolute Auto 4.4 K/mm3 (1.3-6.7); Neutrophils Percent Auto 54.7 % (45.5-73.1); Platelet Count Result 253 k/mm3 (150-375); Red Blood Count 3.26 M/mm3 (4.2-5.4); Red Cell Distribution Width 13.8 % (11.5-14.5); White Blood Count 8.1 K/mm3 (4.5-10.0)
[2023-02-07 18:42] LABS: Glucose Point of Care 144 mg/dl (65-105)
[2023-02-07 18:51] LABS: Alanine Aminotransferase 22 U/L (6-35); Albumin Level 3.8 g/dL (3.5-5.1); Alkaline Phosphatase 128 U/L (38-126); Anion Gap 8 mmol/L (8-16); Aspartate Amino Transferase 27 U/L (14-36); Bilirubin,Total 0.2 mg/dL (0.2-1.3); Blood Urea Nitrogen 38 mg/dL (7-17); Calcium 8.7 mg/dL (8.4-10.2); Carbon Dioxide 20 mmol/L (22-30); Chloride 103 mmol/L (98-107); Estimated CRCL calculation 16 ml/min; Estimated Glomerular Filt Rate 25; Glucose 137 mg/dL (65-110); Lactic Acid Reflex 3.1 mmol/L (0.7-2.0); Magnesium 1.9 mg/dL (1.6-2.3); Potassium 4.5 mmol/L (3.4-5.0); Sodium 131 mmol/L (137-145)
[2023-02-07] MEDS: ONDANSETRON INJ 4 MG/2 ML VIAL IV PUSH (18:56)
[2023-02-07 19:02] LABS: Troponin I < 0.012 ng/mL (0.000-0.034)
[2023-02-07 21:38] LABS: Reflex Lactic Acid Yes or No Add Lactic
[2023-02-07 22:17] LABS: Lactic Acid 2.2 mmol/L (0.7-2.0)
[2023-02-07 22:26] LABS: Troponin I < 0.012 ng/mL (0.000-0.034)
[2023-02-08] VITALS (11 sets, daily range): BP systolic 152–167; BP diastolic 55–84; PULSE 78–97; RESP 18–20; TEMP 36.9–38.2; O2SAT 99–100
[2023-02-08 06:51] LABS: Hematocrit 32.5 % (37.0-47.0); Hemoglobin 10.1 g/dL (12.0-15.0); Mean Corpuscular HGB Conc 31.1 g/dl (32-36); Mean Corpuscular Hemoglobin 30.6 pg (26-34); Mean Corpuscular Volume 98.5 fl (80-100); Mean Platelet Volume 11.6 fl (7.4-10.4); Platelet Count Result 204 k/mm3 (150-375); Red Cell Distribution Width 14.1 % (11.5-14.5); White Blood Count 16.6 K/mm3 (4.5-10.0)
[2023-02-08] MEDS: ONDANSETRON HCL ODT 4 MG TABLET PO (06:53)
[2023-02-08] MEDS: ACETAMINOPHEN 325 MG TABLET 650 MG PO ×2 (06:54→20:17)
[2023-02-08 07:02] LABS: Alanine Aminotransferase 23 U/L (6-35); Albumin Level 3.7 g/dL (3.5-5.1); Alkaline Phosphatase 107 U/L (38-126); Anion Gap 8 mmol/L (8-16); Aspartate Amino Transferase 32 U/L (14-36); Bilirubin,Total 0.5 mg/dL (0.2-1.3); Blood Urea Nitrogen 36 mg/dL (7-17); Calcium 8.7 mg/dL (8.4-10.2); Carbon Dioxide 20 mmol/L (22-30); Chloride 106 mmol/L (98-107); Estimated CRCL calculation 18 ml/min; Estimated Glomerular Filt Rate 28; Glucose 87 mg/dL (65-110); Potassium 4.7 mmol/L (3.4-5.0); Sodium 134 mmol/L (137-145)
[2023-02-08] MEDS: busPIRone HCL 2.5 MG TABLET 7.5 MG PO ×2 (08:48→17:54)
[2023-02-08] MEDS: ENOXAPARIN 30 MG/0.3 ML SYRINGE SUB-Q (08:48)
[2023-02-08] MEDS: CYANOCOBALAMIN 1,000 MCG TABLET 1000 MCG PO (08:49)
[2023-02-08] MEDS: CITALOPRAM HYDROBROMIDE 20 MG TABLET PO (08:49)
[2023-02-08] MEDS: MEMANTINE HCL XR 7 MG CAP PO (08:49)
[2023-02-08] MEDS: LABETALOL HCL 50 MG TABLET PO ×2 (08:49→20:17)
[2023-02-08] MEDS: SODIUM BICARBONATE TAB 325 MG TABLET PO ×2 (08:49→17:54)
[2023-02-08] MEDS: LORATADINE 10 MG TABLET PO (08:49)
[2023-02-08] MEDS: CHOLECALCIFEROL 1,000 UNITS TABLET 1000 UNITS PO (08:49)
--- NOTE | 2023-02-08 09:09 | PM.IMPN ---
Progress Note: A&P Assessment and Plan (1) Syncope: Code(s): R55 - Syncope and collapse Status: Acute Assessment and Plan: syncopal episode approximately 1800 yesterday while patient was vomiting and having diarrhea. suspected vasovagal response. Patient was profoundly hypotensive and received fluid resuscitation. She now feels back to baseline and IV fluids are continuing at maintenance rate. Lactic acid elevation likely due to vasovagal syncope rather than sepsis. (2) Nausea vomiting and diarrhea: Code(s): R11.2 - Nausea with vomiting, unspecified; R19.7 - Diarrhea, unspecified Status: Acute Assessment and Plan: Patient no longer vomiting but it was noted she had large amounts of emesis during and after syncopal event. On exam this morning she stated that her stomach was still a little upset and she still had some diarrhea but was no longer vomiting. (3) Hyperkalemia: Code(s): E87.5 - Hyperkalemia Status: Acute Assessment and Plan: Hyperkalemia has improved with treatment and remained stable. (4) Dehydration: Code(s): E86.0 - Dehydration Status: Acute Assessment and Plan: The patient received fluid resuscitation after syncopal event and continues on maintenance IV fluid, taking good oral intake. (5) Acute UTI: Code(s): N39.0 - Urinary tract infection, site not specified Status: Acute Assessment and Plan: Urinalysis suspicious for UTI, receiving IV Rocephin. Today white blood cell count was elevated and lactic acid was elevated but believe those are both from the result of recovering from vasovagal syncope rather than sepsis (6) Dementia: Code(s): F03.90 - Unspecified dementia, unspecified severity, without behavioral disturbance, psychotic disturbance, mood disturbance, and anxiety Status: Chronic Assessment and Plan: stable, baseline confused (7) Hypertensive kidney disease, stage IV: Code(s): I12.9 - Hypertensive chronic kidney disease with stage 1 through stage 4 chronic kidney disease, or unspecified chronic kidney disease; N18.4 - Chronic kidney disease, stage 4 (severe) Status: Acute Assessment and Plan: renal function remains improved and stable. Time Spent With Patient Time with patient: Greater than 35 minutes Subjective Date/time seen: 02/08/23 09:09 Interval history: Yesterday evening patient had likely vasovagal syncopal episode resulting in a code blue being called. Family was contacted and was reaffirmed that patient is actually DNR rather than a modified code of medications only. Patient found to be significant the hypotensive with blood pressure in the 40s. She received IV fluids and was noted to be vomiting profusely. Says this time patient has significantly improved, she was awake alert and conversant though some of her words are she is getting mixed up. Family has remained at bedside and states that hour by our she has gotten much better since the event. Patient noted to have elevated lactic acid at the time of syncopal event and morning white blood cell count resulted at 16.6. She is being treated with Rocephin for urine infection. Blood cultures drawn and repeat chest x-ray to assess for aspiration given syncope and vomiting. Chest x-ray was unremarkable. IV fluids continue to infuse. Renal function appears stable morning labs. Potassium remains stable. Patient complaining about GI upset but otherwise feeling much better. If not for significant syncopal event would consider discharge however patient and family concerned about an early discharge and we will want to monitor blood cultures to make sure they do not return immediately positive. Patient will be transitioned to inpatient status. Review of Systems Review of Systems: All systems reviewed & are unremarkable except as noted in HPI and below Exam Narrative: GENERAL: Patient resting comfortably in
--- NOTE | 2023-02-08 10:48 | PM.PNNEP ---
Progress Note: A&P Assessment and Plan (1) Hyperkalemia: Code(s): E87.5 - Hyperkalemia Status: Acute Assessment and Plan: chronic issue both outpatient and with recent inpatient hospitalization s/p medical management with improvement noted given this recurrent issue, would hold GUADALUPE-I/ARB therapy indefinitely for now the option would be start her on chronic lokelma/veltassa therapy if GUADALUPE-I/ARB needs to be continued follow repeat potassium levels (2) Chronic kidney disease, stage 3b: Code(s): N18.32 - Chronic kidney disease, stage 3b Status: Chronic Assessment and Plan: baseline creatinine around 1.5 - 1.7mg/dl however, creatinine as been as high as 2.1mg/dl based on outpatient evaluation, due to hypertensive nephrosclerosis on sodium bicarbonate for metabolic acidosis (3) Syncope: Code(s): R55 - Syncope and collapse Status: Acute Assessment and Plan: as noted by events on the evening of 02/07/23 asymptomatic at this time follow hemodynamics (4) Essential hypertension: Code(s): I10 - Essential (primary) hypertension Status: Chronic Assessment and Plan: elevated at this time off lisinopril due to #1 suspect may need another agent other option is to titrate amlodipine and labetalol follow trend of hemodynamics (5) Generalized weakness: Code(s): R53.1 - Weakness Status: Acute Assessment and Plan: etiology not clear due to poor oral intake, relative dehydration, possible UTI? continue supportive therapy (6) Dementia: Code(s): F03.90 - Unspecified dementia, unspecified severity, without behavioral disturbance, psychotic disturbance, mood disturbance, and anxiety Status: Chronic Assessment and Plan: Chronic and stable Long and extensive discussion (> 20 minutes) with patient's daughter at bedside; the patient is notorious for not drinking enought fluids and the daughter has to push to do so even at her nursing facility; this is further complicated by her propensity of getting UTIs as well; since the patient is DNR and does not want a feeding tube, the only thing her family can do is encourage her to drink fluids but this has been extremely challenging in general. Will continue to follow. Subjective Date/time seen: 02/08/23 10:48 Interval history: Follow-up for hyperkalemia and chronic kidney disease. Events noted overnight - rapid response/code blue called after patient had what appeared to be a vasovagal/syncopal episode with hypotension and vomiting; she responded to IVF boluses with improvement in blood pressure and GI symptoms; appears to be doing better at this time; daughter and well as several other family members at bedside and we discussed the situation. Exam Narrative: General: elderly and frail appearing female in NAD Heart: normal S1 and S2; no rub Lungs: clear to auscultation Abdomen: soft, nontender, nondistended, positive bowel sounds Extremities: no cyanosis or clubbing; no edema Skin: warm and dry Objective Data Vital Signs Vital Signs: Vital Signs Temp Pulse Resp BP Pulse Ox O2 Del Method 02/08/23 12:00 80 02/08/23 08:00 90 02/08/23 08:00 Room Air 02/08/23 08:49 94 02/08/23 06:00 98.4 F 97 20 157/84 H 100 02/08/23 04:00 93 02/08/23 00:00 91 02/07/23 20:00 79 02/07/23 22:00 97.5 F L 76 14 194/75 H 100 02/07/23 18:52 145/73 H 02/07/23 18:07 59/34 L 02/07/23 18:04 75/45 L 02/07/23 18:02 96.4 F L 64 12 96/52 L 94 02/07/23 16:00 89 02/07/23 18:56 71 12 96/52 L 98 Room Air 02/07/23 14:00 97.6 F 73 16 143/61 H 100 Intake/Output Intake/Output: Intake & Output 02/05/23 02/06/23 02/07/23 02/08/23 23:59 23:59 23:59 23:59 Intake Total 1050 1942 360 Output Total 1000 Balance 1050 942 360 Meds/Results Med
--- NOTE | 2023-02-08 10:48 | P.PNNP_ITS ---
Progress Note: A&P Assessment and Plan (1) Hyperkalemia: Code(s): E87.5 - Hyperkalemia Status: Acute Assessment and Plan: * chronic issue both outpatient and with recent inpatient hospitalization * s/p medical management with improvement noted * given this recurrent issue, would hold GUADALUPE-I/ARB therapy indefinitely for now * the option would be start her on chronic lokelma/veltassa therapy if GUADALUPE- I/ARB needs to be continued * follow repeat potassium levels (2) Chronic kidney disease, stage 3b: Code(s): N18.32 - Chronic kidney disease, stage 3b Status: Chronic Assessment and Plan: * baseline creatinine around 1.5 - 1.7mg/dl * however, creatinine as been as high as 2.1mg/dl * based on outpatient evaluation, due to hypertensive nephrosclerosis * on sodium bicarbonate for metabolic acidosis (3) Syncope: Code(s): R55 - Syncope and collapse Status: Acute Assessment and Plan: * as noted by events on the evening of 02/07/23 * asymptomatic at this time * follow hemodynamics (4) Essential hypertension: Code(s): I10 - Essential (primary) hypertension Status: Chronic Assessment and Plan: * elevated at this time * off lisinopril due to #1 * suspect may need another agent * other option is to titrate amlodipine and labetalol * follow trend of hemodynamics (5) Generalized weakness: Code(s): R53.1 - Weakness Status: Acute Assessment and Plan: * etiology not clear * due to poor oral intake, relative dehydration, possible UTI? * continue supportive therapy (6) Dementia: Code(s): F03.90 - Unspecified dementia, unspecified severity, without behavioral di sturbance, psychotic disturbance, mood disturbance, and anxiety Status: Chronic Assessment and Plan: * Chronic and stable Long and extensive discussion (> 20 minutes) with patient's daughter at bedside; the patient is notorious for not drinking enought fluids and the daughter has to push to do so even at her nursing facility; this is further complicated by her propensity of getting UTIs as well; since the patient is DNR and does not want a feeding tube, the only thing her family can do is encourage her to drink fluids but this has been extremely challenging in general. Will continue to follow. Subjective Date/time seen: 02/08/23 10:48 Interval history: Follow-up for hyperkalemia and chronic kidney disease. Events noted overnight - rapid response/code blue called after patient had what appeared to be a vasovagal/syncopal episode with hypotension and vomiting; she responded to IVF boluses with improvement in blood pressure and GI symptoms; appears to be doing better at this time; daughter and well as several other family members at bedside and we discussed the situation. Exam Narrative: General: elderly and frail appearing female in NAD Heart: normal S1 and S2; no rub Lungs: clear to auscultation Abdomen: soft, nontender, nondistended, positive bowel sounds Extremities: no cyanosis or clubbing; no edema Skin: warm and dry Objective Data Vital Signs Vital Signs: Vital Signs Temp Pulse Resp BP Pulse Ox O2 Del Method 02/08/23 12:00 80 02/08/23 08:00 90 02/08/23 08:00 Room Air 02/08/23 08:49 94 02/08/23 06:00 98.4 F 97 20 157/84 H 100 02/08/23
[2023-02-08] MEDS: SODIUM CHLORIDE 0.9% IV 1,000 ML 55 ML IV CONT (20:13)
[2023-02-08] MEDS: amLODIPine BESYLATE 2.5 MG TABLET PO (20:18)
[2023-02-08] MEDS: AMPICILLIN 1 GM/NS 50 ML 1 GM/50 ML BAG IVPB (23:40)
[2023-02-09] VITALS (8 sets, daily range): BP systolic 146–165; BP diastolic 57–70; PULSE 61–79; RESP 18; TEMP 36.7–37.3; O2SAT 98–100
[2023-02-09 06:42] LABS: Hematocrit 28.7 % (37.0-47.0); Mean Corpuscular HGB Conc 31.4 g/dl (32-36); Mean Corpuscular Hemoglobin 30.7 pg (26-34); Mean Platelet Volume 10.8 fl (7.4-10.4); Platelet Count Result 188 k/mm3 (150-375); Red Blood Count 2.93 M/mm3 (4.2-5.4); Red Cell Distribution Width 14.1 % (11.5-14.5); White Blood Count 17.7 K/mm3 (4.5-10.0)
[2023-02-09 06:44] LABS: Chloride 109 mmol/L (98-107); Potassium 4.4 mmol/L (3.4-5.0); Sodium 137 mmol/L (137-145)
[2023-02-09 06:45] LABS: Alanine Aminotransferase 34 U/L (6-35); Albumin Level 3.3 g/dL (3.5-5.1); Alkaline Phosphatase 107 U/L (38-126); Anion Gap 5 mmol/L (8-16); Aspartate Amino Transferase 34 U/L (14-36); Bilirubin,Total 0.3 mg/dL (0.2-1.3); Blood Urea Nitrogen 29 mg/dL (7-17); Calcium 8.7 mg/dL (8.4-10.2); Carbon Dioxide 23 mmol/L (22-30); Estimated CRCL calculation 18 ml/min; Estimated Glomerular Filt Rate 28; Glucose 91 mg/dL (65-110)
--- NOTE | 2023-02-09 08:27 | PM.IMPN ---
Progress Note: A&P Assessment and Plan (1) Syncope: Code(s): R55 - Syncope and collapse Status: Acute Assessment and Plan: 02/07: syncopal episode approximately 1800 on 02/07 while patient was vomiting and having diarrhea. suspected vasovagal response. Patient was profoundly hypotensive and received fluid resuscitation. She now feels back to baseline and IV fluids are continuing at maintenance rate. Lactic acid elevation likely due to vasovagal syncope rather than sepsis. -white blood cell count was increased to 17 repeated the lactic but it has since cleared now 0.8 (2) Nausea vomiting and diarrhea: Code(s): R11.2 - Nausea with vomiting, unspecified; R19.7 - Diarrhea, unspecified Status: Acute Assessment and Plan: Patient no longer vomiting but it was noted she had large amounts of emesis during and after syncopal event. - (3) Hyperkalemia: Code(s): E87.5 - Hyperkalemia Status: Acute Assessment and Plan: Hyperkalemia has improved with treatment and remained stable. (4) Dehydration: Code(s): E86.0 - Dehydration Status: Acute Assessment and Plan: The patient received fluid resuscitation after syncopal event and continues on maintenance IV fluid -oral intake poor this morning as patient is very drowsy (5) Acute UTI: Code(s): N39.0 - Urinary tract infection, site not specified Status: Acute Assessment and Plan: Urinalysis suspicious for UTI, receiving IV Rocephin. Today white blood cell count was elevated and lactic acid was elevated but believe those are both from the result of recovering from vasovagal syncope rather than sepsis. -WBC 17.7 (16.6) -Afebrile -repeat lactic this morning 0.8 -urine culture is growing enterococcus, awaiting susceptibility report. On ampicillin. (6) Dementia: Code(s): F03.90 - Unspecified dementia, unspecified severity, without behavioral disturbance, psychotic disturbance, mood disturbance, and anxiety Status: Chronic Assessment and Plan: stable, baseline confused (7) Hypertensive kidney disease, stage IV: Code(s): I12.9 - Hypertensive chronic kidney disease with stage 1 through stage 4 chronic kidney disease, or unspecified chronic kidney disease; N18.4 - Chronic kidney disease, stage 4 (severe) Status: Acute Assessment and Plan: renal function remains improved and stable. Baseline appears to be 1.5-1.7 -Cr 1.70 and BUN 29 today Plan Family is considering hospice Subjective Date/time seen: 02/09/23 08:27 Interval history: HPI obtained from chart: Interval history: This is an 88-year-old female patient admitted to the hospital for dehydration fatigue and UTI.? She was also noted to have hyperkalemia he in the setting of CKD stage 4.? Patient has had numerous admissions for same cluster of complaints.? She received IV insulin, IV dextrose, IV furosemide and sodium bicarbonate bringing potassium from 5.9 to 4.5.? Patient never had chest pain that was reported.? Overnight patient had no acute complaints.? Nephrology to consult due to CKD and hyperkalemia. 02/08: Yesterday evening patient had likely vasovagal syncopal episode resulting in a code blue being called. Family was contacted and was reaffirmed that patient is actually DNR rather than a modified code of medications only. Patient found to be significant the hypotensive with blood pressure in the 40s. She received IV fluids and was noted to be vomiting profusely. Says this time patient has significantly improved, she was awake alert and conversant though some of her words are she is getting mixed up. Family has remained at bedside and states that hour by our she has gotten much better since the event. Patient noted to have elevated lactic acid at the time of syncopal event and morning white blood cell count resulted at 16.6. She is being treated with Rocephin for urine infection. Blood cultures
[2023-02-09] MEDS: busPIRone HCL 2.5 MG TABLET 7.5 MG PO ×2 (09:08→17:34)
[2023-02-09] MEDS: AMPICILLIN 1 GM/NS 50 ML 1 GM/50 ML BAG IVPB (09:08)
[2023-02-09] MEDS: MEMANTINE HCL XR 7 MG CAP PO (09:08)
[2023-02-09] MEDS: LABETALOL HCL 50 MG TABLET PO ×2 (09:09→21:08)
[2023-02-09] MEDS: LORATADINE 10 MG TABLET PO (09:09)
[2023-02-09] MEDS: CHOLECALCIFEROL 1,000 UNITS TABLET 1000 UNITS PO (09:09)
[2023-02-09] MEDS: SODIUM BICARBONATE TAB 325 MG TABLET PO ×2 (09:09→17:34)
[2023-02-09] MEDS: CYANOCOBALAMIN 1,000 MCG TABLET 1000 MCG PO (09:09)
[2023-02-09] MEDS: ACETAMINOPHEN 325 MG TABLET 650 MG PO ×2 (09:09→21:08)
[2023-02-09] MEDS: ENOXAPARIN 30 MG/0.3 ML SYRINGE SUB-Q (09:09)
[2023-02-09] MEDS: CITALOPRAM HYDROBROMIDE 20 MG TABLET PO (09:09)
[2023-02-09 09:23] LABS: Lactic Acid Reflex 0.8 mmol/L (0.7-2.0)
--- NOTE | 2023-02-09 14:16 | PM.PNNEP ---
Progress Note: A&P Assessment and Plan (1) Hyperkalemia: Code(s): E87.5 - Hyperkalemia Status: Acute Assessment and Plan: stable chronic issue both outpatient and with recent inpatient hospitalization s/p medical management with improvement noted given this recurrent issue, would hold GUADALUPE-I/ARB therapy indefinitely for now the option would be start her on chronic lokelma/veltassa therapy if GUADALUPE-I/ARB needs to be continued follow repeat potassium levels (2) Chronic kidney disease, stage 3b: Code(s): N18.32 - Chronic kidney disease, stage 3b Status: Chronic Assessment and Plan: baseline creatinine around 1.5 - 1.7mg/dl however, creatinine as been as high as 2.1mg/dl based on outpatient evaluation, due to hypertensive nephrosclerosis on sodium bicarbonate for metabolic acidosis (3) Syncope: Code(s): R55 - Syncope and collapse Status: Acute Assessment and Plan: as noted by events on the evening of 02/07/23 asymptomatic at this time follow hemodynamics (4) Acute UTI: Code(s): N39.0 - Urinary tract infection, site not specified Status: Acute Assessment and Plan: urine culture with Enterococcus on antibiotics (5) Essential hypertension: Code(s): I10 - Essential (primary) hypertension Status: Chronic Assessment and Plan: reasonable control off lisinopril due to #1 on amlodipine and labetalol - titrate as needed follow trend of hemodynamics (6) Generalized weakness: Code(s): R53.1 - Weakness Status: Acute Assessment and Plan: etiology not clear suspect due to poor oral intake, relative dehydration, UTI continue supportive therapy (7) Dementia: Code(s): F03.90 - Unspecified dementia, unspecified severity, without behavioral disturbance, psychotic disturbance, mood disturbance, and anxiety Status: Chronic Assessment and Plan: chronic and stable Will continue to follow. Subjective Date/time seen: 02/09/23 14:16 Interval history: Follow-up for hyperkalemia and chronic kidney disease. No apparent distress noted at the time of my visit but she responds minimally when I ask her questions; nursing reports some intermittent combativeness overnight; stable hemodynamics currently. Exam Narrative: General: elderly and frail appearing female in NAD Heart: normal S1 and S2; no rub Lungs: clear to auscultation Abdomen: soft, nontender, nondistended, positive bowel sounds Extremities: no cyanosis or clubbing; no edema Skin: warm and intact Objective Data Vital Signs Vital Signs: Vital Signs Temp Pulse Resp BP Pulse Ox O2 Del Method 02/09/23 12:00 61 02/09/23 08:00 62 02/09/23 08:00 Room Air 02/09/23 09:09 70 02/09/23 06:00 98.1 F 73 18 146/70 H 100 02/09/23 04:00 79 02/09/23 00:00 75 02/08/23 20:00 87 18 99 Room Air 02/08/23 20:00 89 02/08/23 21:32 98.8 F 87 18 167/57 H 99 02/08/23 20:17 88 02/08/23 16:00 91 Intake/Output Intake/Output: Intake & Output 02/06/23 02/07/23 02/08/23 02/09/23 23:59 23:59 23:59 23:59 Intake Total 1050 1991 1991 50 Output Total 1000 Balance 2991 359 9793 50 Meds/Results Medications: Active Medications Generic Name Dose Route Start Last Admin Trade Name Freq PRN Reason Stop Dose Admin Acetaminophen 650 mg 02/06/23 21:00 02/09/23 09:09 Acetaminophen 325 Mg Tablet PO 650 mg Q12H AMY Administration Amlodipine Besylate 2.5 mg 02/06/23 21:00 02/08/23 20:18 Amlodipine Besylate 2.5 Mg Tablet PO 2.5 mg QHS AMY Administration Buspirone HCl 7.5 mg 02/06/23 21:05 02/09/23 09:08 Buspirone Hcl 2.5 Mg Tablet PO 7.5 mg BID AMY Administration Citalopram Hydrobromide 20 mg 02/07/23 09:00 02/09/23 09:09 Citalopram Hydrobromide 20 Mg Tablet PO 20 mg DAILY [facility] Ad
--- NOTE | 2023-02-09 14:16 | P.PNNP_ITS ---
Progress Note: A&P Assessment and Plan (1) Hyperkalemia: Code(s): E87.5 - Hyperkalemia Status: Acute Assessment and Plan: * stable * chronic issue both outpatient and with recent inpatient hospitalization * s/p medical management with improvement noted * given this recurrent issue, would hold GUADALUPE-I/ARB therapy indefinitely for now * the option would be start her on chronic lokelma/veltassa therapy if GUADALUPE- I/ARB needs to be continued * follow repeat potassium levels (2) Chronic kidney disease, stage 3b: Code(s): N18.32 - Chronic kidney disease, stage 3b Status: Chronic Assessment and Plan: * baseline creatinine around 1.5 - 1.7mg/dl * however, creatinine as been as high as 2.1mg/dl * based on outpatient evaluation, due to hypertensive nephrosclerosis * on sodium bicarbonate for metabolic acidosis (3) Syncope: Code(s): R55 - Syncope and collapse Status: Acute Assessment and Plan: * as noted by events on the evening of 02/07/23 * asymptomatic at this time * follow hemodynamics (4) Acute UTI: Code(s): N39.0 - Urinary tract infection, site not specified Status: Acute Assessment and Plan: * urine culture with Enterococcus * on antibiotics (5) Essential hypertension: Code(s): I10 - Essential (primary) hypertension Status: Chronic Assessment and Plan: * reasonable control * off lisinopril due to #1 * on amlodipine and labetalol - titrate as needed * follow trend of hemodynamics (6) Generalized weakness: Code(s): R53.1 - Weakness Status: Acute Assessment and Plan: * etiology not clear * suspect due to poor oral intake, relative dehydration, UTI * continue supportive therapy (7) Dementia: Code(s): F03.90 - Unspecified dementia, unspecified severity, without behavioral disturbance, psychotic disturbance, mood disturbance, and anxiety Status: Chronic Assessment and Plan: * chronic and stable Will continue to follow. Subjective Date/time seen: 02/09/23 14:16 Interval history: Follow-up for hyperkalemia and chronic kidney disease. No apparent distress noted at the time of my visit but she responds minimally when I ask her questions; nursing reports some intermittent combativeness overnight; stable hemodynamics currently. Exam Narrative: General: elderly and frail appearing female in NAD Heart: normal S1 and S2; no rub Lungs: clear to auscultation Abdomen: soft, nontender, nondistended, positive bowel sounds Extremities: no cyanosis or clubbing; no edema Skin: warm and intact Objective Data Vital Signs Vital Signs: Vital Signs Temp Pulse Resp BP Pulse Ox O2 Del Method 02/09/23 12:00 61 02/09/23 08:00 62 02/09/23 08:00 Room Air 02/09/23 09:09 70 02/09/23 06:00 98.1 F 73 18 146/70 H 100 02/09/23 04:00 79 02/09/23 00:00 75 02/08/23 20:00 87 18 99 Room Air 02/08/23 20:00 89 02/08/23 21:32 98.8 F 87 18 167/57 H 99 02/08/23 20:17 88 02/08/23 16:00 91 Intake/Output Intake/Output: Intake & Output 02/06/23 02/07/23 02/08/23 02/09/23 23:59 23:59 23:
--- NOTE | 2023-02-09 15:06 | PCCCNOTE ---
On 02/09/23, the student, [Anuradha White ], provided care and [facility]. I have reviewed the student's documentation and agree with the findings.
[2023-02-09] MEDS: SODIUM CHLORIDE 0.9% IV 1,000 ML 55 ML IV CONT (17:34)
[2023-02-09] MEDS: AMPICILLIN 2 GM/NS 100 ML 2 GM/100 ML BAG IVPB (21:07)
[2023-02-09] MEDS: amLODIPine BESYLATE 2.5 MG TABLET PO (21:09)
[2023-02-10 06:00] VITALS: BP 171/62; PULSE 64; RESP 18; TEMP 37.3; O2SAT 99
[2023-02-10 06:37] LABS: Basophils Percent Auto 0.3 % (0.2-1.2); Eosinophils Absolute Auto 0.3 K/mm3 (0-0.3); Eosinophils Percent Auto 2.5 % (0-4.4); Hematocrit 27.3 % (37.0-47.0); Hemoglobin 8.5 g/dL (12.0-15.0); Immature Granulocyte Absolute 0.07 K/mm3 (0.00-0.031); Immature Granulocyte Percent A 0.6 % (0-0.5); Lymphocytes Absolute Auto 1.56 K/mm3 (0.9-3.2); Lymphocytes Percent Auto 13.6 % (18.3-44.2); Mean Corpuscular HGB Conc 31.1 g/dl (32-36); Mean Corpuscular Hemoglobin 30.8 pg (26-34); Mean Corpuscular Volume 98.9 fl (80-100); Monocytes Absolute Auto 0.8 K/mm3 (0.1-0.6); Monocytes Percent Auto 6.9 % (2.6-8.5); Neutrophils Absolute Auto 8.7 K/mm3 (1.3-6.7); Neutrophils Percent Auto 76.1 % (45.5-73.1); Platelet Count Result 191 k/mm3 (150-375); Red Blood Count 2.76 M/mm3 (4.2-5.4); Red Cell Distribution Width 14.4 % (11.5-14.5); White Blood Count 11.5 K/mm3 (4.5-10.0)
--- NOTE | 2023-02-10 06:38 | PC.NURSE ---
Spoke with Dr. Stover at this time r/t elevated BP171/62 64. New order received for hydralazine 10mg IVP once.
[2023-02-10] MEDS: hydrALAZINE HCL 20 MG/ML VIAL 10 MG IV PUSH (06:43)
[2023-02-10] MEDS: SODIUM CHLORIDE 0.9% IV 1,000 ML 55 ML IV CONT (06:43)
[2023-02-10 06:50] LABS: Alanine Aminotransferase 26 U/L (6-35); Albumin Level 2.8 g/dL (3.5-5.1); Alkaline Phosphatase 89 U/L (38-126); Anion Gap -2 mmol/L (8-16); Aspartate Amino Transferase 25 U/L (14-36); Bilirubin,Total 0.2 mg/dL (0.2-1.3); Blood Urea Nitrogen 21 mg/dL (7-17); Calcium 8.4 mg/dL (8.4-10.2); Carbon Dioxide 24 mmol/L (22-30); Chloride 112 mmol/L (98-107); Estimated CRCL calculation 21 ml/min; Estimated Glomerular Filt Rate 36; Glucose 86 mg/dL (65-110); Potassium 4.6 mmol/L (3.4-5.0); Sodium 134 mmol/L (137-145)
--- NOTE | 2023-02-10 08:41 | PM.IMPN ---
Progress Note: A&P Assessment and Plan (1) Syncope: Code(s): R55 - Syncope and collapse Status: Acute Assessment and Plan: 02/07: syncopal episode approximately 1800 on 02/07 while patient was vomiting and having diarrhea. suspected vasovagal response. Patient was profoundly hypotensive and received fluid resuscitation. She now feels back to baseline and IV fluids are continuing at maintenance rate. Lactic acid elevation likely due to vasovagal syncope rather than sepsis. (2) Nausea vomiting and diarrhea: Code(s): R11.2 - Nausea with vomiting, unspecified; R19.7 - Diarrhea, unspecified Status: Acute Assessment and Plan: Patient no longer vomiting but it was noted she had large amounts of emesis during and after syncopal event. -Currently no nausea or vomiting -PRN zofran as needed (3) Hyperkalemia: Code(s): E87.5 - Hyperkalemia Status: Acute Assessment and Plan: Hyperkalemia has improved with treatment and remained stable. -K 4.6 mmol/L today (4) Dehydration: Code(s): E86.0 - Dehydration Status: Acute Assessment and Plan: The patient received fluid resuscitation after syncopal event and continues on maintenance IV fluid -NS at 55 ml per hour -Cr improved 1.9-->1.7-->1.4 today (5) Acute UTI: Code(s): N39.0 - Urinary tract infection, site not specified Status: Acute Assessment and Plan: Urinalysis suspicious for UTI, receiving IV Rocephin. Today white blood cell count was elevated and lactic acid was elevated but believe those are both from the result of recovering from vasovagal syncope rather than sepsis. -WBC 11.5 (17.7) after initiation of ampicillin -Afebrile -repeat lactic this morning 0.8 -urine culture is growing enterococcus susceptible to ampicillin, vancomycin, and Macrobid. Initially ampicillin was 1 gram BID. ID pharmacist recommended high dose treatment with 2 gram ampicillin BID. Thus far she has received 2 doses of Amp 1 gram and 1 dose of Amp 2 grams. Eventually will transition to PO Macrobid once clinically improved. (6) Dementia: Code(s): F03.90 - Unspecified dementia, unspecified severity, without behavioral disturbance, psychotic disturbance, mood disturbance, and anxiety Status: Chronic Assessment and Plan: stable, baseline confused (7) Hypertensive kidney disease, stage IV: Code(s): I12.9 - Hypertensive chronic kidney disease with stage 1 through stage 4 chronic kidney disease, or unspecified chronic kidney disease; N18.4 - Chronic kidney disease, stage 4 (severe) Status: Acute Assessment and Plan: renal function remains improved and stable. Baseline appears to be 1.5-1.7 -Cr 1.40 and BUN 21 today Plan Family is considering hospice per nurse. Subjective Date/time seen: 02/10/23 08:41 Interval history: HPI obtained from chart: Interval history: This is an 88-year-old female patient admitted to the hospital for dehydration fatigue and UTI.? She was also noted to have hyperkalemia he in the setting of CKD stage 4.? Patient has had numerous admissions for same cluster of complaints.? She received IV insulin, IV dextrose, IV furosemide and sodium bicarbonate bringing potassium from 5.9 to 4.5.? Patient never had chest pain that was reported.? Overnight patient had no acute complaints.? Nephrology to consult due to CKD and hyperkalemia. 02/08: Yesterday evening patient had likely vasovagal syncopal episode resulting in a code blue being called. Family was contacted and was reaffirmed that patient is actually DNR rather than a modified code of medications only. Patient found to be significant the hypotensive with blood pressure in the 40s. She received IV fluids and was noted to be vomiting profusely. Says this time patient has significantly improved, she was awake alert and conversant though some of her words are she is getting mixed up. Family has remaine
[2023-02-10] MEDS: AMPICILLIN 2 GM/NS 100 ML 2 GM/100 ML BAG IVPB (08:54)
[2023-02-10] MEDS: busPIRone HCL 2.5 MG TABLET 7.5 MG PO (08:54)
[2023-02-10 08:55] VITALS: PULSE 68
[2023-02-10] MEDS: CITALOPRAM HYDROBROMIDE 20 MG TABLET PO (08:55)
[2023-02-10] MEDS: ACETAMINOPHEN 325 MG TABLET 650 MG PO (08:55)
[2023-02-10] MEDS: MEMANTINE HCL XR 7 MG CAP PO (08:55)
[2023-02-10] MEDS: CHOLECALCIFEROL 1,000 UNITS TABLET 1000 UNITS PO (08:55)
[2023-02-10] MEDS: CYANOCOBALAMIN 1,000 MCG TABLET 1000 MCG PO (08:55)
[2023-02-10] MEDS: LORATADINE 10 MG TABLET PO (08:55)
[2023-02-10] MEDS: ENOXAPARIN 30 MG/0.3 ML SYRINGE SUB-Q (08:55)
[2023-02-10] MEDS: LABETALOL HCL 50 MG TABLET PO (08:55)
[2023-02-10] MEDS: SODIUM BICARBONATE TAB 325 MG TABLET PO (08:55)
--- NOTE | 2023-02-10 11:30 | PCDIET ---
Pt is being discharged today and going home on hospice. No further nutrition recommendations.
--- NOTE | 2023-02-10 12:14 | P.PNNP_ITS ---
Progress Note: A&P Assessment and Plan (1) Hyperkalemia: Code(s): E87.5 - Hyperkalemia Status: Acute Assessment and Plan: * stable * chronic issue both outpatient and with recent inpatient hospitalization * s/p medical management with improvement noted * given this recurrent issue, would hold GUADALUPE-I/ARB therapy indefinitely for now * the option would be start her on chronic lokelma/veltassa therapy if GUADALUPE- I/ARB needs to be continued * follow repeat potassium levels (2) Chronic kidney disease, stage 3b: Code(s): N18.32 - Chronic kidney disease, stage 3b Status: Chronic Assessment and Plan: * baseline creatinine around 1.5 - 1.7mg/dl * however, creatinine as been as high as 2.1mg/dl * based on outpatient evaluation, due to hypertensive nephrosclerosis * on sodium bicarbonate for metabolic acidosis (3) Syncope: Code(s): R55 - Syncope and collapse Status: Acute Assessment and Plan: * as noted by events on the evening of 02/07/23 * asymptomatic at this time * follow hemodynamics (4) Acute UTI: Code(s): N39.0 - Urinary tract infection, site not specified Status: Acute Assessment and Plan: * urine culture with Enterococcus * on antibiotics (5) Essential hypertension: Code(s): I10 - Essential (primary) hypertension Status: Chronic Assessment and Plan: * reasonable control * off lisinopril due to #1 * on amlodipine and labetalol - titrate as needed * follow trend of hemodynamics (6) Generalized weakness: Code(s): R53.1 - Weakness Status: Acute Assessment and Plan: * etiology not clear * suspect due to poor oral intake, relative dehydration, UTI * continue supportive therapy (7) Dementia: Code(s): F03.90 - Unspecified dementia, unspecified severity, without behavioral disturbance, psychotic disturbance, mood disturbance, and anxiety Status: Chronic Assessment and Plan: * chronic and stable Will continue to follow. Subjective Date/time seen: 02/10/23 12:14 Interval history: Follow-up for hyperkalemia and chronic kidney disease. No new issues or problems at this time; family considering transition to comfort care/hospice due to patient's ongoing decline in association with multiple hospitalizations in the last few months. Exam Narrative: General: elderly and frail appearing female in NAD Heart: normal S1 and S2; no rub Lungs: clear to auscultation Abdomen: soft, nontender, nondistended, positive bowel sounds Extremities: no cyanosis or clubbing; no edema Skin: no rash or nodules Objective Data Vital Signs Vital Signs: Vital Signs - 24 hr 02/09/23 19:52 02/09/23 20:00 02/10/23 06:00 Temperature 99.1 F 99.2 F Pulse Rate 73 73 64 Respiratory Rate 18 18 18 Blood Pressure 165/57 H 171/62 H Pulse Oximetry 98 98 99 Oxygen Delivery Room Air 02/10/23 08:55 02/10/23 13:48 Temperature 97.6 F Pulse Rate 68 84 Respiratory Rate 18 Blood Pressure 132/76 Pulse Oximetry 98 Oxygen Delivery Intake/Output Intake/Output: Intake & Output 02/07/23 02/08/23 02/09/23 02/10/23 23:59 23:59 23:59 23:59 Intake Total 1991 08
--- NOTE | 2023-02-10 12:14 | PM.PNNEP ---
Progress Note: A&P Assessment and Plan (1) Hyperkalemia: Code(s): E87.5 - Hyperkalemia Status: Acute Assessment and Plan: stable chronic issue both outpatient and with recent inpatient hospitalization s/p medical management with improvement noted given this recurrent issue, would hold GUADALUPE-I/ARB therapy indefinitely for now the option would be start her on chronic lokelma/veltassa therapy if GUADALUPE-I/ARB needs to be continued follow repeat potassium levels (2) Chronic kidney disease, stage 3b: Code(s): N18.32 - Chronic kidney disease, stage 3b Status: Chronic Assessment and Plan: baseline creatinine around 1.5 - 1.7mg/dl however, creatinine as been as high as 2.1mg/dl based on outpatient evaluation, due to hypertensive nephrosclerosis on sodium bicarbonate for metabolic acidosis (3) Syncope: Code(s): R55 - Syncope and collapse Status: Acute Assessment and Plan: as noted by events on the evening of 02/07/23 asymptomatic at this time follow hemodynamics (4) Acute UTI: Code(s): N39.0 - Urinary tract infection, site not specified Status: Acute Assessment and Plan: urine culture with Enterococcus on antibiotics (5) Essential hypertension: Code(s): I10 - Essential (primary) hypertension Status: Chronic Assessment and Plan: reasonable control off lisinopril due to #1 on amlodipine and labetalol - titrate as needed follow trend of hemodynamics (6) Generalized weakness: Code(s): R53.1 - Weakness Status: Acute Assessment and Plan: etiology not clear suspect due to poor oral intake, relative dehydration, UTI continue supportive therapy (7) Dementia: Code(s): F03.90 - Unspecified dementia, unspecified severity, without behavioral disturbance, psychotic disturbance, mood disturbance, and anxiety Status: Chronic Assessment and Plan: chronic and stable Will continue to follow. Subjective Date/time seen: 02/10/23 12:14 Interval history: Follow-up for hyperkalemia and chronic kidney disease. No new issues or problems at this time; family considering transition to comfort care/hospice due to patient's ongoing decline in association with multiple hospitalizations in the last few months. Exam Narrative: General: elderly and frail appearing female in NAD Heart: normal S1 and S2; no rub Lungs: clear to auscultation Abdomen: soft, nontender, nondistended, positive bowel sounds Extremities: no cyanosis or clubbing; no edema Skin: no rash or nodules Objective Data Vital Signs Vital Signs: Vital Signs - 24 hr 02/09/23 19:52 02/09/23 20:00 02/10/23 06:00 Temperature 99.1 F 99.2 F Pulse Rate 73 73 64 Respiratory Rate 18 18 18 Blood Pressure 165/57 H 171/62 H Pulse Oximetry 98 98 99 Oxygen Delivery Room Air 02/10/23 08:55 02/10/23 13:48 Temperature 97.6 F Pulse Rate 68 84 Respiratory Rate 18 Blood Pressure 132/76 Pulse Oximetry 98 Oxygen Delivery Intake/Output Intake/Output: Intake & Output 02/07/23 02/08/23 02/09/23 02/10/23 23:59 23:59 23:59 23:59 Intake Total 1991 1991 1500 1580 Output Total 1000 1 Balance 992 1991 1500 1579 Meds/Results Radiology Results: ITS Impressions Abdomen/Pelvis CT 02/06/23 16:16 IMPRESSION: Moderate esophagitis. Otherwise, no acute finding detected in the abdomen or pelvis. Stable pulmonary nodules, requiring no additional workup unless the patient is at high risk, in which case consider an optional low dose noncontrast CT of the chest in one year. Chest X-Ray 02/08/23 08:43 Impression: Probable COPD. Clear lungs. Labs Labs: Laboratory Tests 02/10/23 05:57 02/10/23 05:57 Calcium 8.4 Total Bilirubin 0.2 AST 25 ALT 26 Alkaline Phosphatase 89 Total Protein 5.0 L Albumin 2.8 L
--- NOTE | 2023-02-10 12:31 | PM.DS ---
DS: Admitting Diagnosis Discharge Date February 10 Admitting Diagnosis Abnormal urinalysis DS: Discharge Diagnosis Discharge Diagnosis Plan Assessment and Plan (1) Syncope: ?Code(s): R55 - Syncope and collapse ?Status:?Acute ?Assessment and Plan: 02/07: syncopal episode approximately 1800 on 02/07 while patient was vomiting and having diarrhea. suspected vasovagal response.? Patient was profoundly hypotensive and received fluid resuscitation.? She now feels back to baseline and IV fluids are continuing at maintenance rate.? ? Lactic acid elevation likely due to vasovagal syncope rather than sepsis. (2) Nausea vomiting and diarrhea: ?Code(s): R11.2 - Nausea with vomiting, unspecified; R19.7 - Diarrhea, unspecified ?Status:?Acute ?Assessment and Plan: Patient no longer vomiting but it was noted she had large amounts of emesis during and after syncopal event.? -Currently no nausea or vomiting -PRN zofran as needed (3) Hyperkalemia: ?Code(s): E87.5 - Hyperkalemia ?Status:?Acute ?Assessment and Plan: ? Hyperkalemia has improved with treatment and remained stable. -K 4.6 mmol/L today (4) Dehydration: ?Code(s): E86.0 - Dehydration ?Status:?Acute ?Assessment and Plan: ? The patient received fluid resuscitation after syncopal event and continues on maintenance IV fluid -NS at 55 ml per hour -Cr improved 1.9-->1.7-->1.4 today (5) Acute UTI: ?Code(s): N39.0 - Urinary tract infection, site not specified ?Status:?Acute ?Assessment and Plan: Urinalysis suspicious for UTI, receiving IV Rocephin.? Today white blood cell count was elevated and lactic acid was elevated but believe those are both from the result of recovering from vasovagal syncope rather than sepsis. -WBC 11.5 (17.7) after initiation of ampicillin -Afebrile -repeat lactic this morning 0.8 -urine culture is growing enterococcus susceptible to ampicillin, vancomycin, and Macrobid. Initially ampicillin was 1 gram BID. ID pharmacist recommended high dose treatment with 2 gram ampicillin BID. Thus far she has received 2 doses of Amp 1 gram and 1 dose of Amp 2 grams. Eventually will transition to PO Macrobid once clinically improved. (6) Dementia: ?Code(s): F03.90 - Unspecified dementia, unspecified severity, without behavioral disturbance, psychotic disturbance, mood disturbance, and anxiety ?Status:?Chronic ?Assessment and Plan: ?stable, baseline confused (7) Hypertensive kidney disease, stage IV: ?Code(s): I12.9 - Hypertensive chronic kidney disease with stage 1 through stage 4 chronic kidney disease, or unspecified chronic kidney disease; N18.4 - Chronic kidney disease, stage 4 (severe) ?Status:?Acute ?Assessment and Plan: ?renal function remains improved and stable. Baseline appears to be 1.5-1.7 -Cr 1.40 and BUN 21 today Plan Family is considering hospice per nurse. DS: Summary Hospital Course Reason for hospitalization: UTI, weakness Hospital Course: Interval history: HPI obtained from chart: Interval history: This is an 88-year-old female patient admitted to the hospital for dehydration fatigue and UTI.? She was also noted to have hyperkalemia he in the setting of CKD stage 4.? Patient has had numerous admissions for same cluster of complaints.? She received IV insulin, IV dextrose, IV furosemide and sodium bicarbonate bringing potassium from 5.9 to 4.5.? Patient never had chest pain that was reported.? Overnight patient had no acute complaints.? Nephrology to consult due to CKD and hyperkalemia. 02/08: Yesterday evening patient had likely vasovagal syncopal episode resulting in a code blue being called.? Family was contacted and was reaffirmed that patient is actually DNR rather than a modified code of medications only.? Patient found to be significant the hypotensive with blood pressure in the 40s.? She received IV fluids and was noted to be vomiting profusely.? Says
[2023-02-10 13:48] VITALS: BP 132/76; PULSE 84; RESP 18; TEMP 36.4; O2SAT 98
[2023-02-10 14:30] LABS: SARS-CoV-2 RNA PCR Negative (Negative)
== END 2023-02-10 14:40 | DRG 312 ==
LOC: ANHED 14:21 → ANH3MEDSUR 18:02
PROVIDERS: Emergency Medicine; Nurse Practitioner; Physician Assistant; Admitting Provider Hospitalist; Emergency Provider Physician Assistant; PCP Nurse Practitioner Family; Visit Provider Nurse Practitioner Acute Care
DX: R55 Syncope and collapse (principal); N39.0 Urinary tract infection, site not specified; N18.4 Chronic kidney disease, stage 4 (severe); N25.81 Secondary hyperparathyroidism of renal origin; N17.9 Acute kidney failure, unspecified; E87.20 Acidosis, unspecified; I12.9 Hypertensive chronic kidney disease with stage 1 through stage 4 chronic kidney disease, or unspecified chronic kidney disease; R11.2 Nausea with vomiting, unspecified; R19.7 Diarrhea, unspecified; E87.5 Hyperkalemia; E86.0 Dehydration; B95.2 Enterococcus as the cause of diseases classified elsewhere; Z20.822 Contact with and (suspected) exposure to COVID-19; F03.90 Unspecified dementia, unspecified severity, without behavioral disturbance, psychotic disturbance, mood disturbance, and anxiety; I95.9 Hypotension, unspecified; M81.0 Age-related osteoporosis without current pathological fracture; M15.9 Polyosteoarthritis, unspecified; Z96.642 Presence of left artificial hip joint; Z96.619 Presence of unspecified artificial shoulder joint; Z85.3 Personal history of malignant neoplasm of breast; Z66 Do not resuscitate
CPT/HCPCS: 36415; 71045; 74177; 80048; 80053; 81001; 82948; 83605; 83690; 83735; 84484; 85025; 85027; 87040; 87086; 87147; 87181; 87186; 87635; 87636; 93005; 94640; 96361; 96365; 96366; 96372; 96375; 96376; 99285; A9270; G0378; J0171; J0290; J0360; J0696; J1650; J1815; J1940; J2405; J7030; Q9967

== ENCOUNTER 2023-05-20 12:28 | Emergency (ER) | payer OTHER, SELFPAY ==
[2023-05-20] VITALS (17 sets, daily range): BP systolic 140–191; BP diastolic 68–89; PULSE 63–84; RESP 13–22; TEMP 36.8; O2SAT 97–99
--- NOTE | ~2023-05-20 | CT_ITS ---
EXAMINATION: CT brain wo con DATE: 05/20/2023 13:25 INDICATION: Head injury TECHNIQUE: Computed tomography (CT) of the head was performed without intravenous contrast. The mA wa s adjusted according to patient size. Iterative reconstruction technique was employed. Exam dose: 60 5.33 mGy-cm total exam DLP. COMPARISON: 01/19/2023 CT brain FINDINGS: There is posterior left parietal cephalohematoma and minimal subcutaneous emphysema. No sku ll fracture is detected. There are couple of very small hyperdensities subjacent to the inner table o f the skull in the posterior left parietal area (series 2 image 29) which might represent subtle cere bral contusions or very slight subdural hematoma less likely. These are likely subtle coup related in jury, near the position of the cephalohematoma. No contrecoup injury is evident. Close observation of the patient and short-term follow-up CT head imaging is recommended. Bilateral carotid siphon internal carotid artery calcifications. There is prominent nonspecific dimin ished attenuation of the cerebral white matter, likely due to chronic small vessel ischemic changes. There is moderately prominent central and cortical cerebral and cerebellar atrophy, consistent with p atient age. No intracranial mass lesion, midline shift or mass effect is detected. No other intracranial hemorrha ge is appreciated other than the findings described above. With the exception of mild septal soft tissue thickening of some ethmoid air cells and a large extractions technician ior right mastoid air cell with fluid level, the paranasal sinuses and mastoid air cells included in the examination are unremarkable. IMPRESSION: Posterior left parietal cephalohematoma and suggestion of subtle intracranial coup injur y, either small cerebral hemorrhagic contusions or less likely slight subdural hematoma. Close patient monitoring and short-term follow-up CT head examination is recommended Document telephoned the report and recommendations on 05/20/2023 at 1336 hours to emergency room phys jess Andersen. Reviewed, dictated and finalized at [facility]. Reviewed, dictated and finalized at [facility]. IMPRESSION: Posterior left parietal cephalohematoma and suggestion of subtle i ntracranial coup injury, either small cerebral hemorrhagic contusions or less l ikely slight subdural hematoma. Close patient monitoring and short-term follow-up CT head examination is recomm ended Document telephoned the report and recommendations on 05/20/2023 at 1336 hours to emergency room physician Dr. Andersen.
--- NOTE | ~2023-05-20 | CT_ITS ---
EXAMINATION: CT cervical spine wo con DATE: 05/20/2023 13:25 INDICATION: Head injury. Concern for neck injury. TECHNIQUE: Computed tomography (CT) of the cervical spine was performed without intravenous contrast. Automated exposure control and iterative reconstruction technique were employed. Exam dose: 138.78 mGy-cm total exam DLP. COMPARISON: None FINDINGS: Incidentally noted is a fluid level in the large posterior right mastoid air cell. The mast oid air cells otherwise are unremarkable. C1 and C2 are normally aligned and the odontoid process is intact. No fracture or dislocation or lock ed facet or prevertebral soft tissue swelling is detected. There is multilevel degenerative disc disease, most prominent at C3-4, C5-6 and C6-7 with mild associ ated retrolisthesis at each of these levels. Moderate degenerative disc disease at C4-5 with associated mild retrolisthesis. There is moderately prominent cupping of the superior vertebral endplate of T2, consistent with mild compression fracture deformity, likely chronic. IMPRESSION: Cervical spondylosis; no fracture or dislocation, locked facet or prevertebral soft tiss ue swelling Reviewed, dictated and finalized at [facility]. Reviewed, dictated and finalized at [facility]. IMPRESSION: Cervical spondylosis; no fracture or dislocation, locked facet or prevertebral soft tissue swelling
--- NOTE | 2023-05-20 12:54 | ED.FALL ---
HPI - Fall General Chief Complaint: Fall Stated Complaint: glf, head injury Time Seen by Provider: 05/20/23 12:40 History of Present Illness HPI Narrative: 88-year-old female presented the emergency department from local memory care unit after having a ground-level fall. Patient fell and struck the back of her head. No loss of consciousness. Patient is ANO x1 at her baseline. Patient does have an abrasion to posterior scalp. Patient denies any other pain or injury. Related Data Home Medications Medication Instructions Recorded Confirmed labetalol 100 mg tablet 50 mg PO BID 08/12/20 02/06/23 acetaminophen 650 mg 650 mg PO Q12H 08/19/22 02/06/23 tablet,extended release cetirizine 10 mg tablet 10 mg PO DAILY 08/19/22 02/06/23 citalopram 20 mg tablet (Celexa) 20 mg PO DAILY 08/19/22 02/06/23 amlodipine 5 mg tablet 2.5 mg PO QHS 01/19/23 02/06/23 buspirone 5 mg tablet 7.5 mg PO BID 01/19/23 02/06/23 memantine 7 mg capsule 7 mg PO DAILY 01/19/23 02/06/23 sprinkle,extended release 24hr ondansetron 4 mg disintegrating 4 mg PO Q6H PRN Nausea 01/19/23 02/06/23 tablet polyethylene glycol 3350 17 gram 17 g PO BID PRN Constipation 01/19/23 02/06/23 oral powder packet sennosides 8.6 mg tablet (senna) 8.6 mg PO BID PRN Constipation 01/19/23 02/06/23 Allergies Allergy/AdvReac Type Severity Reaction Status Date / Time NSAIDS (Non-Steroidal AdvReac Severe contraindicated. 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) (05/03/19) Surgical History Surgical History History of bilateral mastectomy History of left hip replacement History of shoulder replacement Family History Family History Father Family history of suicide Family history of mental disorder Depression Mother Family history of malignant neoplasm of breast in first degree relative Sibling Family history of obesity Family history of mental disorder Depression Hypertension Family history of cardiovascular disease Family history of Alzheimer's disease Other Family history of malignant neoplasm Social History Social History Social History: Code status: Modified code, meds only. Smoking status: Never smoker Alcohol intake: never Substance use: never Substance use type: does not use Lack of Transportation: No Lack of Food: Never True Current Housing: I Have Housing Concerned About Future Housing: No Difficulty Paying Gas/Electric Bills: No Difficulty Paying for Meds: No Currently Unemployed: No Education: Grade School Difficulty w/ Childcare or Family Care: No Living arrangements: assisted living Additional living arrangements comments: [facility] memory care since August 2022. Spiritual care concerns: No Exam Narrative: APPEARANCE: Well appearing, no pain, no distress, well-nourished. HEAD: normocephalic, scalp abrasion and hematoma. EYES: PERRLA/EOMI, conjunctivae clear. NOSE: Normal no drainage EARS:TMS clear with good light reflex. THROAT: Pharynx clear, no exudate. NECK: Supple. No adenopathy, no masses. RESPIRATORY: Airway patent, respirations nonlabored.
--- NOTE | 2023-05-20 14:11 | PC.NURSE ---
Spoke with pt Patricia GAFFNEY, and she states they do not want to pursue any kind of surgery and would like her to be admitted to this facility
--- NOTE | 2023-05-20 15:17 | WPDNEUROSGCN ---
Assessment and Plan Assessment and plan (1) Intracranial hemorrhage after injury without loss of consciousness: Code(s): S06.300A - Unspecified focal traumatic brain injury without loss of consciousness, initial encounter Status: Acute Assessment and Plan: Jennifer Negrete is a 88 year old female with PMH of dementia who is DNR/DNI who presented after a fall from her facility today to the ED. CT Head done in the ED which shows a very small, punctate IPH in the left parietal lobe as well as a scalp hematoma in the left parietal area. - CT Head with tiny left parietal IPH - DNR/DNI - Patient being admitted for overnight observation - NO need for f/u imaging - Family wants no surgery, so no need for new imaging and no need for NS f/u Consult date: 05/20/23 Reason for consult: Small punctate Left parietal IPH after fall HPI: Jennifer Negrete is a 88 year old female with PMH of dementia who is DNR/DNI who presented after a fall from her facility today to the ED. CT Head done in the ED which shows a very small, punctate IPH in the left parietal lobe as well as a scalp hematoma in the left parietal area. Family has been contacted and has made it known that they and the patient would not want surgery. [facility] Past Medical History Medical History Age-related osteoporosis without current pathological fracture Breast cancer Chronic renal insufficiency Dementia Essential hypertension Postmenopausal 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 (of renal origin) (05/03/19) Surgical History Surgical History History of bilateral mastectomy History of left hip replacement History of shoulder replacement Family History Family History Father Family history of suicide Family history of mental disorder Depression Mother Family history of malignant neoplasm of breast in first degree relative Sibling Family history of obesity Family history of mental disorder Depression Hypertension Family history of cardiovascular disease Family history of Alzheimer's disease Other Family history of malignant neoplasm Social History Social History Social History: Code status: Modified code, meds only. Smoking status: Never smoker Alcohol intake: never Substance use: never Substance use type: does not use Lack of Transportation: No Lack of Food: Never True Current Housing: I Have Housing Concerned About Future Housing: No Difficulty Paying Gas/Electric Bills: No Difficulty Paying for Meds: No Currently Unemployed: No Education: Grade School Difficulty w/ Childcare or Family Care: No Living arrangements: assisted living Additional living arrangements comments: [facility] memory care since August 2022. Spiritual care concerns: No Meds Home Medications and Allergies Home Medications Medication Instructions Recorded Confirmed Type mecobalamin (vitamin B12) 1,000 1,000 mcg PO DAILY #90 tabs 06/06/20 02/06/23 Rx mcg chewable tablet (B12 Active) labetalol 100 mg tablet 50 mg PO BID 08/12/20 02/06/23 History acetaminophen 650 mg 650 mg PO Q12H 08/19/22 02/06/23 History tablet,extended release cetirizine 10 mg tablet 10 mg PO DAILY 08/19/22 02/06/23 History citalopram 20 mg tablet (Celexa) 20 mg PO DAILY 08/19/22 02/06/23 History cholecalciferol (vitamin D3) 25 25 mcg PO .COMPLEX #24 caps 09/01/22 02/06/23 Rx mcg (1,000 unit) capsule lisinopril 40 mg tablet 40 mg PO DAILY #90 tabs 09/29/22 02/06/23 Rx amlodipine 5 mg tablet 2.5 mg PO QHS 01/19/23 02/06/23 History buspirone 5 mg tablet 7.5 mg PO BID 01/19/23 02/06/23 History memantine 7 mg capsule 7 mg PO DAILY 01/19/23 02/06/23 History sprinkle,extended relea
--- NOTE | 2023-05-20 16:15 | PCCCNOTE ---
Cc spoke with patients daughterTaylor via phone. At this time family does not wish to pursue any further treatment and would like patient to return to [facility], . Patient is enrolled with hospice at [facility] [phone] and they are aware that patient will be returning to [facility]. CC will continue to follow for any needs that may arise.
--- NOTE | 2023-05-20 18:01 | PC.NURSE ---
Pt ambulatory to the bathroom with standby assistance
--- NOTE | 2023-05-20 18:58 | PC.NURSE ---
Pt continues to try to get out of bed on her own, pt brought to nurses station with this RN, scarlet woo
== END 2023-05-20 19:05 ==
PROVIDERS: Emergency Provider Emergency Medicine; PCP Nurse Practitioner Family
DX: S06.5XAA Traumatic subdural hemorrhage with loss of consciousness status unknown, initial encounter (principal); F03.90 Unspecified dementia, unspecified severity, without behavioral disturbance, psychotic disturbance, mood disturbance, and anxiety; I12.9 Hypertensive chronic kidney disease with stage 1 through stage 4 chronic kidney disease, or unspecified chronic kidney disease; N18.4 Chronic kidney disease, stage 4 (severe); W18.30XA Fall on same level, unspecified, initial encounter
CPT/HCPCS: 70450; 72125; 99284

== ENCOUNTER 2023-06-01 23:05 | Emergency (ER) | payer OTHER, MEDICARE, SELFPAY ==
--- NOTE | ~2023-06-01 | CT_ITS ---
EXAMINATION: CT brain wo con DATE: 06/02/2023 00:45 INDICATION: Fall. TECHNIQUE: Computed tomography (CT) of the head was performed without intravenous contrast. The mA wa s adjusted according to patient size. Iterative reconstruction technique was employed. The dose-lengt h product was 605.33 mGy-cm. COMPARISON: Head CT 05/20/2023 FINDINGS: There are scattered areas of low attenuation in the cerebral white matter. There is no intr acranial hemorrhage, acute infarction, or abnormal intracranial mass lesion. The ventricles are ramon l in size. There is left posterior scalp soft tissue swelling. There is mild mucosal thickening in th e paranasal sinuses. There are likely changes of ocular lens replacement surgeries. There is a trace right mastoid effusion. IMPRESSION: 1. Stable extensive nonspecific cerebral white matter disease, which likely represents chronic small vessel ischemic disease. Reviewed, dictated and finalized at location E. IMPRESSION: 1. Stable extensive nonspecific cerebral white matter disease, which likely rep resents chronic small vessel ischemic disease.
[2023-06-01 23:22] VITALS: BP 206/94; PULSE 74; RESP 18; TEMP 36.6; O2SAT 100
--- NOTE | 2023-06-01 23:40 | ED.HEATRA ---
HPI - Head Injury General Chief complaint: Head Injury Stated complaint: fall, head injury Time Seen by Provider: 06/01/23 23:08 History of Present Illness HPI Narrative: Patient is an 88-year-old female presenting after a fall. Patient is coming from a nursing facility, she apparently had an unwitnessed fall. Nursing noticed that she was bleeding from the back of her head so EMS was called. She is currently A&O x1 which is her baseline. Patient was actually seen here about 10 days ago after a fall and was found to have an intracranial hemorrhage but the patient is on hospice and the family does not want anything done so she was sent back to her facility. She currently denies any complaints. Related Data Home Medications Medication Instructions Recorded Confirmed labetalol 100 mg tablet 50 mg PO BID 08/12/20 02/06/23 acetaminophen 650 mg 650 mg PO Q12H 08/19/22 02/06/23 tablet,extended release cetirizine 10 mg tablet 10 mg PO DAILY 08/19/22 02/06/23 citalopram 20 mg tablet (Celexa) 20 mg PO DAILY 08/19/22 02/06/23 amlodipine 5 mg tablet 2.5 mg PO QHS 01/19/23 02/06/23 buspirone 5 mg tablet 7.5 mg PO BID 01/19/23 02/06/23 memantine 7 mg capsule 7 mg PO DAILY 01/19/23 02/06/23 sprinkle,extended release 24hr ondansetron 4 mg disintegrating 4 mg PO Q6H PRN Nausea 01/19/23 02/06/23 tablet polyethylene glycol 3350 17 gram 17 g PO BID PRN Constipation 01/19/23 02/06/23 oral powder packet sennosides 8.6 mg tablet (senna) 8.6 mg PO BID PRN Constipation 01/19/23 02/06/23 Allergies Allergy/AdvReac Type Severity Reaction Status Date / Time NSAIDS (Non-Steroidal AdvReac Severe contraindicated. Verified 05/20/23 12:44 Anti-Inflamma CKD 4 sulfamethoxazole AdvReac Unknown Verified 05/20/23 12:44 [From Sulfamethoxazole-Trimethoprim] trimethoprim AdvReac Unknown Verified 05/20/23 12:44 [From Sulfamethoxazole-Trimethoprim] Review of Systems Review of Systems: ROS unobtainable: Yes unobtainable due to medical condition, unobtainable due to mental status and other (Underlying dementia) [facility] Past Medical History Medical History Age-related osteoporosis without current pathological fracture Breast cancer Chronic renal insufficiency Dementia Essential hypertension Postmenopausal 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 (of renal origin) (05/03/19) Surgical History Surgical History History of bilateral mastectomy History of left hip replacement History of shoulder replacement Family History Family History Father Family history of suicide Family history of mental disorder Depression Mother Family history of malignant neoplasm of breast in first degree relative Sibling Family history of obesity Family history of mental disorder Depression Hypertension Family history of cardiovascular disease Family history of Alzheimer's disease Other Family history of malignant neoplasm Social History Social History Social History: Code status: Modified code, meds only. Smoking status: Never smoker Alcohol intake: never Substance use: never Substance use type: does not use Lack of Transportation: No Lack of Food: Never True Current Housing: I Have Housing Concerned About Future Housing: No Difficulty Paying Gas/Electric Bills: No Difficulty Paying for Meds: No Currently Unemployed: No Education: Grade School Difficulty w/ Childcare or Family Care: No Living arrangements: assisted living Additional living arrangements comments: [facility] memory care since August 2022. Spiritual care concerns: No Exam Narrative: GENERAL: Elderly female sitting in bed in no acute distress HE
[2023-06-02] MEDS: HYDROGEN PEROXIDE 3% SOLN(*SP) 473 ML BOTTLE (03:00)
[2023-06-02 04:46] VITALS: BP 174/99; PULSE 72; RESP 158; O2SAT 98
== END 2023-06-02 04:52 | disposition hospice, home (50) ==
PROVIDERS: Emergency Provider Emergency Medicine; PCP Nurse Practitioner Family
DX: S01.01XA Laceration without foreign body of scalp, initial encounter (principal); F03.90 Unspecified dementia, unspecified severity, without behavioral disturbance, psychotic disturbance, mood disturbance, and anxiety; I12.9 Hypertensive chronic kidney disease with stage 1 through stage 4 chronic kidney disease, or unspecified chronic kidney disease; N18.9 Chronic kidney disease, unspecified; N25.81 Secondary hyperparathyroidism of renal origin; M81.0 Age-related osteoporosis without current pathological fracture; M19.90 Unspecified osteoarthritis, unspecified site; Z96.642 Presence of left artificial hip joint; Z96.619 Presence of unspecified artificial shoulder joint; R90.82 White matter disease, unspecified; W19.XXXA Unspecified fall, initial encounter
CPT/HCPCS: 36415; 70450; 99284; A9270

== ENCOUNTER 2023-09-05 08:25 | Emergency (ER) | payer MEDICARE, SELFPAY ==
[2023-09-05] VITALS (24 sets, daily range): BP systolic 104–204; BP diastolic 62–73; PULSE 63–76; RESP 10–18; TEMP 34.9–36.7; O2SAT 95–100
--- NOTE | ~2023-09-05 | CT_ITS ---
EXAMINATION: CT brain wo con DATE: 09/05/2023 09:47 INDICATION: Fall. TECHNIQUE: Computed tomography (CT) of the head was performed without intravenous contrast. The mA wa s adjusted according to patient size. Iterative reconstruction technique was employed. The dose-lengt h product was 605.33 mGy-cm. COMPARISON: Head CT 06/02/2023 FINDINGS: There are scattered areas of low attenuation in the cerebral white matter. There is no intr acranial hemorrhage, acute infarction, or abnormal intracranial mass lesion. The ventricles are ramon l in size. There are likely changes of ocular lens replacement surgeries. There is mucosal thickening in the paranasal sinuses. There is a trace right mastoid effusion. There is left posterolateral scal p soft tissue swelling. IMPRESSION: 1. Stable extensive nonspecific cerebral white matter disease, which likely represents chronic small vessel ischemic disease. Reviewed, dictated and finalized at location E. GER PRIVACY IMPRESSION: 1. Stable extensive nonspecific cerebral white matter disease, which likely rep resents chronic small vessel ischemic disease.
--- NOTE | ~2023-09-05 | CT_ITS ---
EXAMINATION: CT cervical spine wo con DATE: 09/05/2023 09:47 INDICATION: Head injury. Fall. TECHNIQUE: Computed tomography (CT) of the cervical spine was performed without intravenous contrast. Automated exposure control and iterative reconstruction technique were employed. The dose-length pro duct was 160.55 mGy-cm. COMPARISON: CT cervical spine 05/20/2023 FINDINGS: Bone alignment is normal. There is mild chronic height loss of T2 and T3 vertebral bodies. There is mildly decreased disc height at C2-C3, severely decreased disc height at C3-C4, moderately d ecreased disc height at C4-C5, and severely decreased disc height at C5-C6 and C6-C7. The following d isc levels are specifically discussed: C2-C3: There is mild bilateral uncovertebral joint osteoarthritis. There is mild bilateral facet join t osteoarthritis. There is no neural foraminal stenosis. There is no central canal stenosis. C3-C4: There is severe bilateral uncovertebral joint osteoarthritis. There is moderate bilateral face t joint osteoarthritis. There is mild bilateral neural foraminal stenosis. There is mild central grant l stenosis. C4-C5: There is mild bilateral uncovertebral joint osteoarthritis. There is mild bilateral facet join t osteoarthritis. There is no neural foraminal stenosis. There is mild central canal stenosis. C5-C6: There is severe bilateral uncovertebral joint osteoarthritis. There is mild bilateral facet juliet int osteoarthritis. There is mild bilateral neural foraminal stenosis. There is mild central canal st enosis. C6-C7: There is severe bilateral uncovertebral joint osteoarthritis. There is severe bilateral facet joint osteoarthritis. There is mild bilateral neural foraminal stenosis. There is mild central canal stenosis. C7-T1: There is no uncovertebral joint osteoarthritis. There is mild right and moderate left facet juliet int osteoarthritis. There is mild left neural foraminal stenosis. There is no central canal stenosis. IMPRESSION: 1. No acute fracture. 2. Severe cervical spondylosis. Reviewed, dictated and finalized at location E. REPAIRER
--- NOTE | ~2023-09-05 | XR_ITS ---
XR chest 1V portable DATE: 09/05/2023 09:16 INDICATION: Unwitnessed fall TECHNIQUE: Portable supine AP chest on September 05, 2023 0909 hours COMPARISON: February 08, 2023 portable AP chest at 0826 hours FINDINGS: Thyromegaly. Aortic calcification. No hilar or mediastinal enlargement is evident. No pulmonary infiltrate or consolidation, pleural effusion or pulmonary vascular congestion or pneumo thorax is detected. Surgical clips, left axillary area Impression is evident. Osteopenia. Right glenohumeral arthroplasty. IMPRESSION: Cardiomegaly, aortic atherosclerosis No active pulmonary disease Reviewed, dictated and finalized at location B. R BUSINESS DEVELOPER Impression is evident. Osteopenia. Right glenohumeral arthroplasty.
--- NOTE | 2023-09-05 08:59 | ED.FALL ---
HPI - Fall General Chief Complaint: Fall Stated Complaint: unwitnessed fall, unknown LOC Time Seen by Provider: 09/05/23 08:46 History of Present Illness HPI Narrative: 88-year-old female presenting to the emergency department for evaluation after having a ground level fall. Patient is a hospice patient. Staff reports that the patient has had multiple falls recently. Patient does have a laceration to her scalp. Family states the patient is comfort care. Patient was hypothermic upon arrival to the emergency department and a Tony Hugger was placed. Family initially stated that they did not want to pursue an infectious or metabolic workup but after discussion they decided they did want to pursue a workup. Related Data Home Medications Medication Instructions Recorded Confirmed labetalol 100 mg tablet 50 mg PO BID 08/12/20 02/06/23 acetaminophen 650 mg 650 mg PO Q12H 08/19/22 02/06/23 tablet,extended release cetirizine 10 mg tablet 10 mg PO DAILY 08/19/22 02/06/23 citalopram 20 mg tablet (Celexa) 20 mg PO DAILY 08/19/22 02/06/23 amlodipine 5 mg tablet 2.5 mg PO QHS 01/19/23 02/06/23 buspirone 5 mg tablet 7.5 mg PO BID 01/19/23 02/06/23 memantine 7 mg capsule 7 mg PO DAILY 01/19/23 02/06/23 sprinkle,extended release 24hr ondansetron 4 mg disintegrating 4 mg PO Q6H PRN Nausea 01/19/23 02/06/23 tablet polyethylene glycol 3350 17 gram 17 g PO BID PRN Constipation 01/19/23 02/06/23 oral powder packet sennosides 8.6 mg tablet (senna) 8.6 mg PO BID PRN Constipation 01/19/23 02/06/23 Allergies Allergy/AdvReac Type Severity Reaction Status Date / Time NSAIDS (Non-Steroidal AdvReac Severe contraindicated. 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) (05/03/19) Surgical History Surgical History History of bilateral mastectomy History of left hip replacement History of shoulder replacement Family History Family History Father Family history of suicide Family history of mental disorder Depression Mother Family history of malignant neoplasm of breast in first degree relative Sibling Family history of obesity Family history of mental disorder Depression Hypertension Family history of cardiovascular disease Family history of Alzheimer's disease Other Family history of malignant neoplasm Social History Social History Social History: Code status: Modified code, meds only. Smoking status: Never smoker Alcohol intake: never Substance use: never Substance use type: does not use Lack of Transportation: No Lack of Food: Never True Current Housing: I Have Housing Concerned About Future Housing: No Difficulty Paying Gas/Electric Bills: No Difficulty Paying for Meds: No Currently Unemployed: No Education: Grade School Difficulty w/ Childcare or Family Care: No Living arrangements: assisted living Additional living arrangements comments: [facility] memory care since August 2022. Spiritual care concerns: No Exam Narrative: APPEARANCE: Somnolent, no distress HEAD: normocephalic, scalp laceration. EYES: PERRLA/EOMI, conjuncti
--- NOTE | 2023-09-05 09:59 | ECG_ITS ---
Measurements Intervals [place] Rate: 64 P: 68 SC: 159 QRS: 78 QRSD: 124 T: 59 QT: 457 QTc: 473 Interpretive Statements SINUS RHYTHM RIGHT BUNDLE BRANCH BLOCK [120+ ms QRS DURATION, UPRIGHT V1, 40+ ms S IN I/aVL/V4/V5/V6] ABNORMAL ECG COMPARED TO ECG 02/07/2023 20:53:09 NO SIGNIFICANT CHANGES Electronically Signed On 09-05-2023 16:51:41 FIRE CONTROLMAN by Milad Bellamy M.D.
[2023-09-05 10:47] LABS: Appearance Urine Clear (Clear); Bacteria Urine 4+ /hpf; Bilirubin Urine Negative (Negative); Color Urine Yellow (Yellow); Glucose Urine UA Negative (Negative); Ketones Urine Negative (Negative); Leukocyte Esterase Ur Trace LEU/UL (Negative); Nitrate Urine Negative (Negative); Non Pathogenic Casts 0-2; Protein Urine 1+ mg/dL (Negative); Specific Grav Ur 1.012 (1.001-1.035); Squamous Epithelial Cell Urine None seen /hpf (Few); Urobilinogen Urine 0.2 mg/dL (<2.0); WBC Urine 21-50 /hpf; pH Urine 6.5 (5.0-9.0)
[2023-09-05 10:49] LABS: Add Urine Microscopic? YES
[2023-09-05 11:15] LABS: Influenza A QL RT-PCR Negative (Negative); Influenza B QL RT-PCR Negative (Negative); RSV RNA, RT-PCR Negative (Negative); SARS-CoV-2 RNA PCR Negative (Negative)
[2023-09-05 12:05] LABS: Basophils Percent Auto 0.5 % (0.2-1.2); Eosinophils Absolute Auto 0.1 K/mm3 (0-0.3); Hematocrit 29.3 % (37.0-47.0); Hemoglobin 9.1 g/dL (12.0-15.0); Immature Granulocyte Absolute 0.02 K/mm3 (0.00-0.031); Immature Granulocyte Percent A 0.3 % (0-0.5); Lymphocytes Absolute Auto 1.51 K/mm3 (0.9-3.2); Lymphocytes Percent Auto 25.1 % (18.3-44.2); Mean Corpuscular HGB Conc 31.1 g/dl (32-36); Mean Corpuscular Hemoglobin 30.3 pg (26-34); Mean Corpuscular Volume 97.7 fl (80-100); Mean Platelet Volume 10.5 fl (7.4-10.4); Monocytes Absolute Auto 0.5 K/mm3 (0.1-0.6); Neutrophils Absolute Auto 3.8 K/mm3 (1.3-6.7); Neutrophils Percent Auto 63.1 % (45.5-73.1); Platelet Count Result 204 k/mm3 (150-375); Red Cell Distribution Width 13.6 % (11.5-14.5)
[2023-09-05 12:15] LABS: Prothrombin Time 13.4 Seconds (11.1-14.7)
[2023-09-05 12:16] LABS: Partial Thromboplastin Time 21.1 SECONDS (22.3-36.8)
[2023-09-05 12:18] LABS: Alanine Aminotransferase 12 U/L (6-35); Albumin Level 3.3 g/dL (3.5-5.1); Alkaline Phosphatase 122 U/L (38-126); Anion Gap 4 mmol/L (8-16); Aspartate Amino Transferase 21 U/L (14-36); Bilirubin,Total 0.3 mg/dL (0.2-1.3); Blood Urea Nitrogen 29 mg/dL (7-17); Calcium 9.2 mg/dL (8.4-10.2); Carbon Dioxide 23 mmol/L (22-30); Chloride 109 mmol/L (98-107); Estimated Glomerular Filt Rate 43; Glucose 94 mg/dL (65-110); Potassium 4.6 mmol/L (3.4-5.0); Sodium 136 mmol/L (137-145)
[2023-09-05 12:19] LABS: Lactic Acid Reflex 0.6 mmol/L (0.7-2.0)
--- NOTE | 2023-09-05 13:25 | PC.NURSE ---
c-collar removed by provider. cleaned scalp, hematoma to left side of head. no open areas noted.
--- NOTE | 2023-09-05 13:41 | PM.IMHP ---
H&P: HPI History of Present Illness Date/Time: 09/05/23 13:41 Chief Complaint: Fall Narrative: 88-year-old female with history of multiple comorbidities including breast cancer, dementia, essential hypertension, osteoporosis, on hospice care, brought to ED because of fall. patient has had multiple falls recently, in the ED patient was found to have a laceration to her scalp. Upon arrival in the ED, patient was hypothermic upon arrival to the emergency department and a Tony Hugger was placed.? Family initially stated that they did not want to pursue an infectious or metabolic workup. Per ER provider, after discussion they decided they did want to pursue a workup. Head CT neck CT were negative for acute injury.? Patient has no leukocytosis and a stable hemoglobin patient's CMP is similar to her baseline.? Patient was positive for urinary tract infection and she was treated with IV Rocephin, blood in urine cultures are pending.? Patient was negative for influenza RSV and for COVID.? hemoglobin 9.1, elevated BUN creatinine 29 hour 1.2. Review of Systems Review of Systems: ROS negative except above PMFSH Past Medical History Medical History Age-related osteoporosis without current pathological fracture Breast cancer Chronic renal insufficiency Dementia Essential hypertension Postmenopausal 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 (of renal origin) (05/03/19) Surgical History Surgical History History of bilateral mastectomy History of left hip replacement History of shoulder replacement Family History Family History Father Family history of suicide Family history of mental disorder Depression Mother Family history of malignant neoplasm of breast in first degree relative Sibling Family history of obesity Family history of mental disorder Depression Hypertension Family history of cardiovascular disease Family history of Alzheimer's disease Other Family history of malignant neoplasm Social History Social History Social History: Code status: Modified code, meds only. Smoking status: Never smoker Alcohol intake: never Substance use: never Substance use type: does not use Lack of Transportation: No Lack of Food: Never True Current Housing: I Have Housing Concerned About Future Housing: No Difficulty Paying Gas/Electric Bills: No Difficulty Paying for Meds: No Currently Unemployed: No Education: Grade School Difficulty w/ Childcare or Family Care: No Living arrangements: assisted living Additional living arrangements comments: [facility] memory care since August 2022. Spiritual care concerns: No Meds Home Medications and Allergies Home Medications Medication Instructions Recorded Confirmed Type mecobalamin (vitamin B12) 1,000 1,000 mcg PO DAILY #90 tabs 06/06/20 02/06/23 Rx mcg chewable tablet (B12 Active) labetalol 100 mg tablet 50 mg PO BID 08/12/20 02/06/23 History acetaminophen 650 mg 650 mg PO Q12H 08/19/22 02/06/23 History tablet,extended release cetirizine 10 mg tablet 10 mg PO DAILY 08/19/22 02/06/23 History citalopram 20 mg tablet (Celexa) 20 mg PO DAILY 08/19/22 02/06/23 History cholecalciferol (vitamin D3) 25 25 mcg PO .COMPLEX #24 caps 09/01/22 02/06/23 Rx mcg (1,000 unit) capsule lisinopril 40 mg tablet 40 mg PO DAILY #90 tabs 09/29/22 02/06/23 Rx amlodipine 5 mg tablet 2.5 mg PO QHS 01/19/23 02/06/23 History buspirone 5 mg tablet 7.5 mg PO BID 01/19/23 02/06/23 History memantine 7 mg capsule 7 mg PO DAILY 01/19/23 02/06/23 History sprinkle,extended release 24hr ondansetron 4 mg disintegrating 4 mg PO Q6H PRN Nausea 01/19/23 02/06/23 History tablet poly
--- NOTE | 2023-09-05 14:07 | PC.NURSE ---
update given to hospice, marii
--- NOTE | 2023-09-05 15:33 | PC.NURSE ---
luke removed intact
== END 2023-09-05 15:35 | disposition hospice, home (50) ==
PROVIDERS: Emergency Provider Emergency Medicine; PCP Nurse Practitioner Family
DX: S01.01XA Laceration without foreign body of scalp, initial encounter (principal); N39.0 Urinary tract infection, site not specified; Z20.822 Contact with and (suspected) exposure to COVID-19; F03.90 Unspecified dementia, unspecified severity, without behavioral disturbance, psychotic disturbance, mood disturbance, and anxiety; I10 Essential (primary) hypertension; N25.81 Secondary hyperparathyroidism of renal origin; M19.90 Unspecified osteoarthritis, unspecified site; M81.0 Age-related osteoporosis without current pathological fracture; Z90.13 Acquired absence of bilateral breasts and nipples; Z96.642 Presence of left artificial hip joint; Z96.619 Presence of unspecified artificial shoulder joint; Z85.3 Personal history of malignant neoplasm of breast; M47.812 Spondylosis without myelopathy or radiculopathy, cervical region; M85.88 Other specified disorders of bone density and structure, other site; I51.7 Cardiomegaly; I70.0 Atherosclerosis of aorta; R90.82 White matter disease, unspecified; W19.XXXA Unspecified fall, initial encounter
CPT/HCPCS: 36415; 51702; 70450; 71045; 72125; 80053; 81001; 83605; 85025; 85610; 85730; 87040; 87086; 87637; 93005; 96365; 99284; J0696

== ENCOUNTER 2024-05-18 10:03 | Emergency (ER) | payer MEDICARE, SELFPAY ==
--- NOTE | ~2024-05-18 | CT_ITS ---
CT head without contrast Indication: Head injury COMPARISON: 05/18/2024 Technique: Serial scans were obtained through the brain without the administration of contrast. Dose reduction technique was used on this scan by utilizing automated exposure control and iterative recon struction technique. The dose-length product (DLP) was 681.00 mGy-cm. Findings: There is no evidence of intracranial hemorrhage, mass lesion, or acute infarct. The ventri cles and subarachnoid spaces are dilated, consistent with mild to moderate atrophy. Low attenuation regions are seen within the periventricular white matter bilaterally, likely representing changes fro m chronic microvascular ischemic disease. There is no evidence of edema, mass effect or midline shif t. The visualized paranasal sinuses and mastoid air cells are clear. Soft tissue swelling in the hig h right parietal scalp noted. Impression: No intracranial hemorrhage, mass, or acute infarct. Atrophy and chronic white matter changes, as above. Reviewed, dictated and finalized at location . Impression: No intracranial hemorrhage, mass, or acute infarct. Atrophy and chronic white matter changes, as above.
--- NOTE | ~2024-05-18 | CT_ITS ---
Noncontrast CT scan of the cervical spine Technique: Multiple contiguous axial [address] images of the cervical spine were obtained and rec onstructed in 2D sagittal and coronal planes on the acquisition scanner. Dose reduction technique was used on this scan by utilizing automated exposure control, adjustment of the mA and/or kV according to patient size. The dose-length product (DLP) was 126.01 mGy-cm. Clinical History: Pain COMPARISON: 09/05/2023 Findings: No fractures or dislocations. There is advanced degenerative disc narrowing from C3 throug h C7. There is probable bilateral neural foraminal narrowing at C5-C6 and C6-C7. There are mild facet joint degenerative changes throughout the cervical spine. No prevertebral soft tissue swelling. Impression: No fracture or subluxation of the cervical spine. Degenerative changes, as above. Reviewed, dictated and finalized at [facility]. Impression: No fracture or subluxation of the cervical spine. Degenerative changes, as above.
--- NOTE | ~2024-05-18 | CT_ITS ---
Noncontrast CT scan of the cervical spine Technique: Multiple contiguous axial [address] images of the cervical spine were obtained and rec onstructed in 2D sagittal and coronal planes on the acquisition scanner. Dose reduction technique was used on this scan by utilizing automated exposure control, adjustment of the mA and/or kV according to patient size. The dose-length product (DLP) was 145.95 mGy-cm. Clinical History: Pain COMPARISON: 05/18/2024 at 10:30 AM Findings: No fractures or dislocations. Stable degenerative changes from exam earlier today. No prev ertebral soft tissue swelling. Impression: No fracture or subluxation of the cervical spine. Reviewed, dictated and finalized at location . Impression: No fracture or subluxation of the cervical spine.
--- NOTE | ~2024-05-18 | CT_ITS ---
CT head without contrast Indication: Status post fall COMPARISON: 09/05/2023 Technique: Serial scans were obtained through the brain without the administration of contrast. Dose reduction technique was used on this scan by utilizing automated exposure control and iterative recon struction technique. The dose-length product (DLP) was 529.67 mGy-cm. Findings: There is no evidence of intracranial hemorrhage, mass lesion, or acute infarct. The ventri cles and subarachnoid spaces are dilated, consistent with mild to moderate atrophy. Low attenuation regions are seen within the periventricular white matter bilaterally, likely representing changes fro m chronic microvascular ischemic disease. There is no evidence of edema, mass effect or midline shif t. The visualized paranasal sinuses and mastoid air cells are clear. There is soft tissue swelling i n the high right parietal scalp. Impression: No intracranial hemorrhage, mass, or acute infarct. Atrophy and chronic white matter changes, as above. Soft tissue swelling at the high right parietal scalp. Reviewed, dictated and finalized at location [facility]. Impression: No intracranial hemorrhage, mass, or acute infarct. Atrophy and chronic white matter changes, as above. Soft tissue swelling at the high right parietal scalp.
[2024-05-18 10:06] VITALS: BP 119/52; PULSE 73; RESP 12; TEMP 36.2; O2SAT 98
--- NOTE | 2024-05-18 11:11 | ED_ITS ---
HPI - Wound/Laceration General Chief Complaint: Wound/Laceration Stated Complaint: head injury Time Seen by Provider: 05/18/24 10:18 Source: family Mode of arrival: EMS Limitations: dementia History of Present Illness HPI narrative: Patient is an 89-year-old female who presents the ED via EMS with report of a head injury. Patient is a resident of [facility]. Currently on hospice for advanced Alzheimer's Disease. Family member at bedside reports patient had a fall throughout the night. Unwitnessed. Sustained a laceration to her right posterior scalp. Family wanted patient to have laceration repaired and receive imaging of her brain. She does not want any further workup. Patient able to open her eyes, but does not answer any questions. Tetanus is up-to-date. Related Data Home Medications Medication Instructions Recorded Confirmed labetalol 100 mg tablet 50 mg PO BID 08/12/20 02/06/23 acetaminophen 650 mg 650 mg PO Q12H 08/19/22 02/06/23 tablet,extended release cetirizine 10 mg tablet 10 mg PO DAILY 08/19/22 02/06/23 citalopram 20 mg tablet (Celexa) 20 mg PO DAILY 08/19/22 02/06/23 amlodipine 5 mg tablet 2.5 mg PO QHS 01/19/23 02/06/23 buspirone 5 mg tablet 7.5 mg PO BID 01/19/23 02/06/23 memantine 7 mg capsule 7 mg PO DAILY 01/19/23 02/06/23 sprinkle,extended release 24hr ondansetron 4 mg disintegrating 4 mg PO Q6H PRN Nausea 01/19/23 02/06/23 tablet polyethylene glycol 3350 17 gram 17 g PO BID PRN Constipation 01/19/23 02/06/23 oral powder packet sennosides 8.6 mg tablet (senna) 8.6 mg PO BID PRN Constipation 01/19/23 02/06/23 Allergies Allergy/AdvReac Type Severity Reaction Status Date / Time NSAIDS (Non-Steroidal AdvReac Severe contraindicated. Verified 05/20/23 12:44 Anti-Inflamma CKD 4 sulfamethoxazole AdvReac Unknown Verified 05/20/23 12:44 [From Sulfamethoxazole-Trimethoprim] trimethoprim AdvReac Unknown Verified 05/20/23 12:44 [From Sulfamethoxazole-Trimethoprim] Review of Systems Review of Systems: All systems reviewed & are unremarkable except as noted in HPI. 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) (05/03/19) Surgical History Surgical History History of bilateral mastectomy History of left hip replacement History of shoulder replacement Family History Family History Father Family history of suicide Family history of mental disorder Depression Mother Family history of malignant neoplasm of breast in first degree relative Sibling Family history of obesity Family history of mental disorder Depression Hypertension Family history of cardiovascular disease Family history of Alzheimer's disease Other Family history of malignant neoplasm Social History Social History Social History: Code status: Modified code, meds only. Smoking status: Never smoker Alcohol intake: never Substance use: never Substance use type: does not use Lack of Transportation: No Lack of Food: Never True Current Housing: I Have Housing Concerned About Future Housing: No Difficulty Paying Gas/Electric Bills: No Difficulty Paying for Meds: No Currently Unemployed: No Education: Grade School Difficulty w/ Childcare or Family Care: No Living arrangements: assisted living Additional living arrangements comments: [facility] memory care since August 2022. Spiritual care concerns: No Exam Narrative: GENERAL: Elderly, frail, somnolent, in no acute distress. HEAD: Normocephalic. Small 1cm laceration to R parietal scalp. RESPIRATORY: Airway patent, respirations nonlabored. CARDIOVASCULAR: Regular rate and rhythm MUSCULOSKELETAL: No gross deformities. SKIN: Warm, dry, normal color. NEURO: Able to open eyes in response to voice, does not speak or answer many questions. No ataxic movements. PSYCHIATRIC: Somnolent. Course Vital Signs Vital signs: Vital Signs Temperature 97.2 F L 05/18/24 10:06 Pulse Rate 73 05/18/24 10:06 Respiratory Rate 12 05/18/24 10:06 Blood Pressure 119/52 L 05/18/24 10:06 Pulse Oximetry 98 05/18/24 10:06 Temperature 97.4 F L 05/18/24 13:22 Pulse Rate 74 05/18/24 13:22 Respiratory Rate 22 H 05/18/24 13:22 Blood Pressure 160/67 H 05/18/24 13:22 Pulse Oximetry 96 05/18/24 13:22 Procedures Laceration Laceration 1: Date: 05/18/24 Time: 11:25 Site: scalp Side (If applicable): right Size (cm): 1 Description: linear Depth: simple, single layer Local Anesthetic: none Pre-repair: wound explored and irrigated ====== Skin Level ====== Skin layer closed with: shameka (#3) ====== Subcutaneous Layer ====== ====== Muscle Layer ====== ====== Tendon Layer ====== MDM - Wound/Laceration MDM Narrative Medical decision making narrative: CT brain without acute traumatic findings. Laceration repaired with 3 shameka without issue. Tetanus is up-to-date. Discussed with family at bedside, they do not wish for patient to receive any further workup. Patient will be discharged back to facility to resume hospice care. Prior to patient leaving facility, waiting for transport, she was found on the ground in her room, appeared to have fallen. Patient was helped back to bed, c- collar placed. She did sustain a small laceration to L outer eyebrow. Repaired with steristrips. She did not appear to have any other injuries. No deformities on exam. Family was notified. Repeat CT brain/cervical spine were obtained and w/o traumatic findings. Refer to additional nursing documentation regarding fall. Patient discharged back to facility w/o further issue. Medical Records Attestation: I reviewed the patient's medical records. Imaging Data Attestation: I personally reviewed and interpreted this imaging study as follows: Radiologist's impression: ITS Impressions Head CT 05/18/24 10:50 Impression: No intracranial hemorrhage, mass, or acute infarct. Atrophy and chronic white matter changes, as above. Soft tissue swelling at the high right parietal scalp. Cervical Spine CT 05/18/24 10:55 Impression: No fracture or subluxation of the cervical spine. Degenerative changes, as above. ITS Impressions Head CT 05/18/24 10:50 Impression: No intracranial hemorrhage, mass, or acute infarct. Atrophy and chronic white matter changes, as above. Soft tissue swelling at the high right parietal scalp. Cervical Spine CT 05/18/24 10:55 Impression: No fracture or subluxation of the cervical spine. Degenerative changes, as above. Head CT 05/18/24 13:06 Impression: No intracranial hemorrhage, mass, or acute infarct. Atrophy and chronic white matter changes, as above. Cervical Spine CT 05/18/24 13:25 Impression: No fracture or subluxation of the cervical spine. Discharge Plan Discharge Clinical Impression: Closed head injury Qualifiers: Encounter type: initial encounter Qualified Code(s): S09.90XA - Unspecified injury of head, initial encounter Dementia Qualifiers: Dementia type: unspecified type Dementia severity: unspecified severity Uday ntia behavioral or psychological symptom: unspecified whether behavioral, psychotic, or mood disturbance or anxiety Qualified Code(s): F03.90 - Unspecified dementia, unspecified severity, without behavioral disturbance, psychotic disturbance, mood disturbance, and anxiety Laceration of scalp Qualifiers: Encounter type: initial encounter Qualified Code(s): S01.01XA - Laceration without foreign body of scalp, initial encounter Laceration of left eyebrow Qualifiers: Encounter type: initial encounter Qualified Code(s): S01.112A - Laceration without foreign body of left eyelid and periocular area, initial encounter Patient Disposition: Hospice - Home Condition: Guarded Prognosis Instructions: Head Injury (ED), Staple Care (ED) Additional Instructions: Patient's shameka will need to be removed within the next 5-7 days. Follow up with hospice care for this. Prescriptions: No Action labetalol 100 mg tablet 50 mg PO BID Patient Comments: am and pm Rx Instructions: Take 1 tablet by mouth every 12 hours until further instructions from your PCP cetirizine 10 mg Tablet 10 mg PO DAILY Patient Comments: takes at night acetaminophen 650 mg Tablet Extended Release 650 mg PO Q12H Patient Comments: am and pm citalopram [Celexa] 20 mg tablet 20 mg PO DAILY sennosides [senna] 8.6 mg tablet 8.6 mg PO BID PRN (Reason: Constipation) polyethylene glycol 3350 17 gram powder in packet 17 g PO BID PRN (Reason: Constipation) ondansetron 4 mg tablet,disintegrating 4 mg PO Q6H PRN (Reason: Nausea) buspirone 5 mg tablet 7.5 mg PO BID amlodipine 5 mg tablet 2.5 mg PO QHS memantine 7 mg capsule,sprinkle,ER 24hr 7 mg PO DAILY sodium bicarbonate 650 mg tablet 325 mg PO BID Qty: 30 0RF amoxicillin 500 mg capsule 500 mg PO Q12H Qty: 8 0RF cephalexin 500 mg capsule 500 mg PO Q8H 7 Days Qty: 21 0RF B12 Active 1,000 mcg tablet,chewable 1,000 mcg PO DAILY Qty: 90 3RF Patient Comments: takes at night cholecalciferol (vitamin D3) 25 mcg (1,000 unit) capsule 25 mcg PO .COMPLEX Qty: 24 1RF Rx Instructions: 25 mcg PO twice weekly; Mon, Thurs lisinopril 40 mg tablet 40 mg PO DAILY Qty: 90 3RF Follow-up/Referrals: Gilberto,Gwen Jones, [facility] [Primary Care Provider] - Time of Disposition: 11:24
[2024-05-18 13:22] VITALS: BP 160/67; PULSE 74; RESP 22; TEMP 36.3; O2SAT 96
== END 2024-05-18 14:01 | disposition hospice, home (50) ==
PROVIDERS: Emergency Provider Physician Assistant; PCP Nurse Practitioner Family
DX: S01.01XA Laceration without foreign body of scalp, initial encounter (principal); S01.112A Laceration without foreign body of left eyelid and periocular area, initial encounter; G30.9 Alzheimer's disease, unspecified; F02.80 Dementia in other diseases classified elsewhere, unspecified severity, without behavioral disturbance, psychotic disturbance, mood disturbance, and anxiety; I12.9 Hypertensive chronic kidney disease with stage 1 through stage 4 chronic kidney disease, or unspecified chronic kidney disease; N18.9 Chronic kidney disease, unspecified; N25.81 Secondary hyperparathyroidism of renal origin; M81.0 Age-related osteoporosis without current pathological fracture; M19.90 Unspecified osteoarthritis, unspecified site; Z96.642 Presence of left artificial hip joint; Z96.619 Presence of unspecified artificial shoulder joint; Z90.13 Acquired absence of bilateral breasts and nipples; W19.XXXA Unspecified fall, initial encounter
CPT/HCPCS: 12001; 70450; 72125; 99284; A9270